=== PATIENT | female | born 1940 | race Caucasian/White ===

== ENCOUNTER 2018-10-08 22:52 | Inpatient (IN) | payer MEDICARE, OTHER | END 2018-10-10 13:10 | disposition home or self-care (01) | LOC: ER 22:52 → PCU 3S 10-09 02:04 | DX: I12.9 Hypertensive chronic kidney disease with stage 1 through stage 4 chronic kidney disease, or unspecified chronic kidney disease (principal); N17.9 Acute kidney failure, unspecified; N18.9 Chronic kidney disease, unspecified; E11.22 Type 2 diabetes mellitus with diabetic chronic kidney disease ==

== ENCOUNTER 2019-04-11 22:01 | Inpatient (IN) | payer MEDICARE ==
[~2019-04-11] VITALS: Ht 160 cm; Wt 88.2 kg
[~2019-04-11 22:01] MED LIST: ASPI-611 PO; ATORVASTATIN CALCIUM 40 MG TAB PO; GLIPIZIDE 5 MG PO; HYDROCODON APAP PO; INSU100I8 SQ; INSULIN GLARGINE 100 UNIT/ML SQ; METOPROLOL SUCCINATE 100 MG PO; PREDNISOLONE ACETATE OP
[2019-04-11] MEDS ORDERED: piperacillin/tazo 4.5gm/100ml 100 ML IV SCH (22:25)
[2019-04-11] MEDS ORDERED: piperacillin/tazo 4.5gm/100ml 100 ML IV ONE (22:33)
[2019-04-11] MEDS ORDERED: glucagon, human recombinant 1mg kit SUBCUT PRN (22:40)
[2019-04-11] MEDS ORDERED: mag hydrox/Alum hydrox/simeth 30ml oral suspension PO PRN (22:40)
[2019-04-11] MEDS ORDERED: potassium Cl 20 mEq SR tablet PO PRN ×2 (22:40)
[2019-04-11] MEDS ORDERED: potassium CL 10mEq/100ml bag 100 ML IV PRN ×2 (22:40)
[2019-04-11] MEDS ORDERED: ondansetron/PF 4mg/2ml inj IV PRN (22:40)
[2019-04-11] MEDS ORDERED: dextrose 50%-water 50ml dispensing syringe IV PRN ×2 (22:40)
[2019-04-11] MEDS ORDERED: magnesium 4gm in 100ml NS 100 ML IV PRN (22:40)
[2019-04-11] MEDS ORDERED: magnesium Cl slow-release 64mg tablet PO PRN (22:40)
[2019-04-11] MEDS ORDERED: dextrose ORAL solution 15 GM/59 ML bottle PO PRN ×2 (22:40)
[2019-04-11] MEDS ORDERED: normal saline 1000ml 1,000 ML IV ONE (22:40)
[2019-04-11] MEDS ORDERED: morphine 2 MG/ML inj. syringe IV PRN ×2 (22:40)
[2019-04-11] MEDS ORDERED: MESSAGE TO PHARMACY PO ONE (22:40)
[2019-04-11] MEDS ORDERED: acetaminophen 325mg tablet PO PRN ×2 (22:40)
[2019-04-11] MEDS ORDERED: magnesium 2GM in 50ml NS 50 ML IV PRN (22:40)
[2019-04-11 22:43] LABS: BASOPHILS # (AUTO) 0.1 X10'3 (0-0.2); BASOPHILS % (AUTO) 0.9 % (0-1); CLARITY,URINE CLEAR (Clear); COLOR,URINE YELLOW (Yellow); EOSINOPHILS # (AUTO) 0.2 X10'3 (0-0.9); EOSINOPHILS % (AUTO) 2.6 % (0-6); GLUCOSE, URINE 250 mg/dl (Neg); HEMATOCRIT 32.1 % (35.0-45.0); HEMOGLOBIN 10.4 g/dl (12.0-16.0); KETONES,URINE NEGATIVE (Neg); LEUKOCYTE ESTERASE ,URINE NEGATIVE (Neg); LYMPHOCYTES # (AUTO) 0.9 X10'3 (1.1-4.8); LYMPHOCYTES % (AUTO) 10.3 % (21-51); MEAN CORPUSCULAR HEMOGLOBIN 26.8 PG (27.0-31.0); MEAN CORPUSCULAR HGB CONC 32.4 g/dL (33.0-36.5); MEAN CORPUSCULAR VOLUME 82.7 FL (78-98); MEAN PLATELET VOLUME 8.1 FL (7.4-10.4); MONOCYTES % (AUTO) 12.1 % (2-12); NEUTROPHILS # (AUTO) 6.4 X10'3 (1.8-7.7); NEUTROPHILS % (AUTO) 74.1 % (42-75); NITRITES, URINE NEGATIVE (Neg); OCCULT BLOOD,URINE TRACE-INTACT (Neg); PH,URINE 5.5 (4.8-8.0); PLATELET COUNT 256 X10'3 (140-440); PROTEIN,URINE 100 mg/dl (Neg); RED BLOOD COUNT 3.89 X10'6 (4.20-5.60); UROBILINOGEN,URINE 0.2 E.U/dL (0.2-1.0); WHITE BLOOD COUNT 8.6 X10'3 (4.5-11.0)
[2019-04-11 22:50] LABS: BACTERIA,URINE FEW /HPF (Neg); RBC,URINE 0-2 /HPF (0-2); SQUAMOUS EPITHELIAL CELL,UR FEW /LPF (FEW); UA COLLECTION TYPE CLN CATCH MIDSTREAM
[2019-04-11 22:54] LABS: ALANINE AMINOTRANSFERASE 34 U/L (12-78); ALBUMIN 2.5 G/DL (3.4-5.0); ALBUMIN/GLOBULIN RATIO 0.5 (1.1-1.5); ALKALINE PHOSPHATASE 88 IU/L (46-116); ANION GAP 10 (8-16); ASPARTATE AMINO TRANSFERASE 29 U/L (10-37); BILIRUBIN,TOTAL 0.3 MG/DL (0.1-1.0); BLOOD UREA NITROGEN 37 MG/DL (7-18); BUN/CREATININE RATIO 25.2 (6.6-38.0); CHLORIDE 104 MMOL/L (99-107); CREATININE 1.47 MG/DL (0.40-0.90); GLUCOSE 370 MG/DL (70-104); POTASSIUM 4.6 MMOL/L (3.5-5.1); SODIUM 137 MMOL/L (135-145); TOTAL CARBON DIOXIDE 23.1 MMOL/L (24-32); TOTAL PROTEIN 7.1 G/DL (6.4-8.2); eGFR 34 ML/MIN
[2019-04-11] MEDS ORDERED: VANCOmycin 1250MG/NS 250ml Bag 250 ML IV ONE (23:00)
--- NOTE | 2019-04-11 23:15 | NUR ---
Report rec'd from rio Peterson. pt is (+) for MRSA and pseudomonas in her wound. Pt BG 353, will tx on the floor when meds available.
[2019-04-11 23:47] VITALS: BP 168/64
[2019-04-11] MEDS: normal saline 1000ml 1,000 ML IV SCH (23:50)
[2019-04-12] MEDS ORDERED: NYSPWD TP (00:43)
[2019-04-12] MEDS ORDERED: GLIP5TAB13 PO ×4 (00:43→07:43)
[2019-04-12] MEDS ORDERED: INSU100V9 SQ ×2 (00:43)
[2019-04-12] MEDS ORDERED: DOCU-148 (00:43)
[2019-04-12] MEDS ORDERED: AMLO5TAB4 PO (00:43)
[2019-04-12] MEDS ORDERED: LEVO25TA2 PO (00:43)
[2019-04-12] MEDS ORDERED: DORZ10DR18 EACHEYE (00:43)
[2019-04-12] MEDS: normal saline 1000ml 1,000 ML IV SCH ×3 (00:49→23:25)
[2019-04-12] MEDS: insulin Lispro (HumaLOG) vial - multi-dose SQ SCH ×4 (02:17→19:13)
[2019-04-12] MEDS: magnesium hydroxide 30ml (MOM) UD suspension PO PRN ×2 (02:36→20:38)
[2019-04-12] MEDS: HYDROcodone/acetaminophen 5mg/325mg tablet PO PRN ×2 (02:37→10:45)
[2019-04-12 05:27] LABS: EOSINOPHILS # (AUTO) 0.3 X10'3 (0-0.9); MONOCYTES # (AUTO) 1.1 X10'3 (0-0.9)
[2019-04-12 05:30] LABS: BASOPHILS # (AUTO) 0.1 X10'3 (0-0.2); BASOPHILS % (AUTO) 0.9 % (0-1); EOSINOPHILS % (AUTO) 3.5 % (0-6); HEMATOCRIT 27.6 % (35.0-45.0); LYMPHOCYTES # (AUTO) 0.7 X10'3 (1.1-4.8); LYMPHOCYTES % (AUTO) 9.4 % (21-51); MEAN CORPUSCULAR HEMOGLOBIN 27.1 PG (27.0-31.0); MEAN CORPUSCULAR HGB CONC 32.7 g/dL (33.0-36.5); MEAN CORPUSCULAR VOLUME 82.9 FL (78-98); MEAN PLATELET VOLUME 8.8 FL (7.4-10.4); NEUTROPHILS # (AUTO) 5.7 X10'3 (1.8-7.7); NEUTROPHILS % (AUTO) 72.2 % (42-75); PLATELET COUNT 220 X10'3 (140-440); RED BLOOD COUNT 3.33 X10'6 (4.20-5.60); RED CELL DISTRIBUTION WIDTH 17.1 % (11.5-14.5)
[2019-04-12 05:35] LABS: ALBUMIN 2.2 G/DL (3.4-5.0); ANION GAP 9 (8-16); BLOOD UREA NITROGEN 39 MG/DL (7-18); BUN/CREATININE RATIO 24.7 (6.6-38.0); CALCIUM 8.8 MG/DL (8.5-10.1); CHLORIDE 106 MMOL/L (99-107); CREATININE 1.58 MG/DL (0.40-0.90); GLUCOSE 294 MG/DL (70-104); MAGNESIUM 1.8 MG/DL (1.5-2.4); POTASSIUM 4.4 MMOL/L (3.5-5.1); SODIUM 139 MMOL/L (135-145); TOTAL CARBON DIOXIDE 24.4 MMOL/L (24-32); eGFR 32 ML/MIN
[2019-04-12 06:00] VITALS: BP 172/64
[2019-04-12] MEDS ORDERED: piperacillin/tazo 3.375gm/50ml 50 ML IV SCH (06:00)
--- NOTE | 2019-04-12 06:21 | NUR ---
Report given to rio Arroyo.
[2019-04-12] MEDS ORDERED: ATOR40TA72 PO (06:39)
[2019-04-12] MEDS ORDERED: HYDR-3972 PO (06:39)
[2019-04-12] MEDS ORDERED: TIMO5DRO4 EACHEYE (06:43)
--- NOTE | 2019-04-12 06:48 | NUR ---
Patient in room ORTHO 4007. I have received report from Roseline WHITAKER and had the opportunity to ask questions and assume patient care.
[2019-04-12] MEDS: K and/or MAG REPLACEMENT MC SCH (07:05)
[2019-04-12] MEDS: cefepime 1GM/NS ADD-VANTAGE 100 ML IV SCH ×2 (07:51→20:32)
[2019-04-12] MEDS: heparin, porcine 5000 units/ml vial SQ SCH ×2 (07:56→20:33)
[2019-04-12] MEDS ORDERED: METO-395 PO (08:23)
[2019-04-12 10:00] VITALS: BP 163/75
[2019-04-12] MEDS ORDERED: gadopentetate dimeglumine 7.5 MMOL/15 ML syringe ONE (10:33)
[2019-04-12] MEDS ORDERED: gadopentetate dimeglumine 5 mmol/10ml vial IV ONE (10:33)
--- NOTE | 2019-04-12 12:02 | NUR ---
DM Consult: A1C 9.9. Pt admit w/ R foot osteomyelitis w/ RLE +3 edema present. Pt seen by RD for written/verbal high protein and DM eds w/ RD contact information provided. 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 PO 75% avg meals; pt agrees to chocolate ensure high protein TIDWM; pending MD verification prior to sending w/ meals which pt is aware of. Receiving MoM PRN pending first DM this admit. Will continue to monitor. Rec: 1. continue carb controlled diet 2. chocolate ensure high protein TIDWM; pending MD verification prior to sending on meals 3. wt per rx Addendum: 04/12/19 at [address] Amended: Links added.
--- NOTE | 2019-04-12 14:36 | NUR ---
Paged hospitalist [phone] please review home meds, patient very concerned about not getting home meds, will continue to monitor
[2019-04-12] MEDS ORDERED: HYDROcodone/acetaminophen 10/325mg tab PO PRN (14:50)
[2019-04-12] MEDS: amLODIPine 5mg tablet PO SCH (15:07)
[2019-04-12 15:08] VITALS: BP 199/68
[2019-04-12] MEDS: VANCOmycin 1250MG/NS 250ml Bag 250 ML IV SCH (17:30)
[2019-04-12 18:00] VITALS: BP 122/64
[2019-04-12] MEDS: lactose-reduced food (Ensure High Protein) 237ml bottle PO SCH (18:00)
--- NOTE | 2019-04-12 18:35 | NUR ---
Problems reprioritized. Patient report given, questions answered & plan of care reviewed with Roseline WHITAKER.
--- NOTE | 2019-04-12 18:36 | NUR ---
Report rec'd from rio Segura. Addendum: 04/12/19 at 1839 by Roseline Valentine RN Disregard last note: Report rec'd from rio Segura. Report rec'd from rio Arroyo.
[2019-04-12] MEDS: HYDROcodone/acetaminophen 10/325mg tab PO PRN (19:11)
[2019-04-12] MEDS: atorvastatin 20mg tablet PO SCH (20:33)
[2019-04-12] MEDS: timolol 0.5% ophthalmic solution 5ml bottle EACHEYE SCH (20:33)
[2019-04-12] MEDS: lactobacillus rhamnosus 10,000 MMU CELLS/CAPSULE PO SCH (20:33)
[2019-04-12] MEDS: nystatin 15 GM powder TP SCH (20:38)
[2019-04-12] MEDS: insulin glargine (Lantus) pen - multi-dose SQ SCH (21:10)
[2019-04-12 22:00] VITALS: BP 178/86
[2019-04-12] MEDS: metroNIDAZOLE-Flagyl 500mg/NS 100 ML IV SCH (23:25)
[2019-04-12] MEDS: diphenhydrAMINE 25mg capsule PO PRN (23:29)
--- NOTE | 2019-04-12 23:53 | NUR ---
pt feeling "low" BG. accucheck BG 40, gave 30gm Glucose shot. recheck 15 mins. BG 110. will continue to monitor.
[2019-04-13] MEDS: HYDROcodone/acetaminophen 5mg/325mg tablet PO PRN (04:51)
[2019-04-13 06:00] VITALS: BP 178/68
--- NOTE | 2019-04-13 06:05 | NUR ---
Report given to rio Mendoza.
[2019-04-13 06:13] LABS: BASOPHILS # (AUTO) 0.1 X10'3 (0-0.2); HEMOGLOBIN 8.9 g/dl (12.0-16.0); NEUTROPHILS # (AUTO) 6.3 X10'3 (1.8-7.7)
[2019-04-13 06:14] LABS: ALBUMIN 2.2 G/DL (3.4-5.0); ANION GAP 9 (8-16); BASOPHILS % (AUTO) 0.9 % (0-1); BLOOD UREA NITROGEN 32 MG/DL (7-18); BUN/CREATININE RATIO 24.2 (6.6-38.0); CALCIUM 8.7 MG/DL (8.5-10.1); CHLORIDE 108 MMOL/L (99-107); CREATININE 1.32 MG/DL (0.40-0.90); EOSINOPHILS # (AUTO) 0.3 X10'3 (0-0.9); EOSINOPHILS % (AUTO) 3.6 % (0-6); GLUCOSE 122 MG/DL (70-104); HEMATOCRIT 27.9 % (35.0-45.0); LYMPHOCYTES % (AUTO) 11.5 % (21-51); MAGNESIUM 1.8 MG/DL (1.5-2.4); MEAN CORPUSCULAR HEMOGLOBIN 26.3 PG (27.0-31.0); MEAN CORPUSCULAR HGB CONC 31.8 g/dL (33.0-36.5); MEAN CORPUSCULAR VOLUME 82.8 FL (78-98); MONOCYTES % (AUTO) 11.6 % (2-12); NEUTROPHILS % (AUTO) 72.4 % (42-75); PLATELET COUNT 228 X10'3 (140-440); POTASSIUM 4.7 MMOL/L (3.5-5.1); RED BLOOD COUNT 3.38 X10'6 (4.20-5.60); RED CELL DISTRIBUTION WIDTH 17.1 % (11.5-14.5); SODIUM 138 MMOL/L (135-145); TOTAL CARBON DIOXIDE 20.8 MMOL/L (24-32); WHITE BLOOD COUNT 8.7 X10'3 (4.5-11.0); eGFR 39 ML/MIN
[2019-04-13 07:33] LABS: PLATELET ESTIMATE NORMAL
[2019-04-13 07:34] LABS: ANISOCYTOSIS 1+
[2019-04-13] MEDS: metoprolol succinate 25mg (24-HOUR) SR. Tablet PO SCH (07:48)
[2019-04-13] MEDS: lactobacillus rhamnosus 10,000 MMU CELLS/CAPSULE PO SCH ×2 (07:48→21:01)
[2019-04-13] MEDS: amLODIPine 5mg tablet PO SCH (07:48)
[2019-04-13] MEDS: levoTHYROXINE 25mcg tablet PO SCH (07:48)
[2019-04-13] MEDS: aspirin 81mg tablet.DR PO SCH (07:48)
[2019-04-13] MEDS: nystatin 15 GM powder TP SCH ×3 (07:49→21:28)
[2019-04-13] MEDS: heparin, porcine 5000 units/ml vial SQ SCH ×2 (07:49→21:02)
[2019-04-13] MEDS: timolol 0.5% ophthalmic solution 5ml bottle EACHEYE SCH ×2 (07:52→21:01)
[2019-04-13] MEDS: cefepime 1GM/NS ADD-VANTAGE 100 ML IV SCH ×2 (07:59→21:01)
[2019-04-13] MEDS: K and/or MAG REPLACEMENT MC SCH (08:00)
[2019-04-13] MEDS: metroNIDAZOLE-Flagyl 500mg/NS 100 ML IV SCH ×3 (09:21→23:13)
[2019-04-13] MEDS: insulin Lispro (HumaLOG) vial - multi-dose SQ SCH ×3 (09:25→19:46)
[2019-04-13 10:00] VITALS: BP 122/74
[2019-04-13] MEDS: normal saline 1000ml 1,000 ML IV SCH ×2 (11:53→16:49)
[2019-04-13] MEDS: HYDROcodone/acetaminophen 10/325mg tab PO PRN ×3 (12:02→23:12)
[2019-04-13] MEDS: lactose-reduced food (Ensure High Protein) 237ml bottle PO SCH ×2 (13:00→18:00)
[2019-04-13] MEDS: VANCOmycin 1250MG/NS 250ml Bag 250 ML IV SCH (17:26)
[2019-04-13 18:00] VITALS: BP 130/78
--- NOTE | 2019-04-13 18:20 | NUR ---
Problems reprioritized. Patient report given, questions answered & plan of care reviewed with Roseline WHITAKER.
--- NOTE | 2019-04-13 19:12 | NUR ---
Patient in room ORTHO 4007. I have received report from Townshend and had the opportunity to ask questions and assume patient care.
--- NOTE | 2019-04-13 19:13 | NUR ---
REPORT REC'D FROM SHERMAN HADLEY.
[2019-04-13] MEDS: docusate sod 100mg capsule PO SCH (21:01)
[2019-04-13] MEDS: atorvastatin 20mg tablet PO SCH (21:01)
[2019-04-13] MEDS: insulin glargine (Lantus) pen - multi-dose SQ SCH (21:26)
[2019-04-13 22:00] VITALS: BP 162/72
[2019-04-13] MEDS: ALPRAZolam 0.25mg tablet PO PRN (23:12)
[2019-04-14] VITALS (16 sets, daily range): BP systolic 130–184; BP diastolic 59–93
[2019-04-14] MEDS: normal saline 1000ml 1,000 ML IV SCH (02:49)
[2019-04-14 06:05] LABS: HEMOGLOBIN 9.2 g/dl (12.0-16.0); LYMPHOCYTES # (AUTO) 1.1 X10'3 (1.1-4.8)
[2019-04-14 06:07] LABS: BASOPHILS % (AUTO) 0.5 % (0-1); EOSINOPHILS # (AUTO) 0.3 X10'3 (0-0.9); EOSINOPHILS % (AUTO) 2.9 % (0-6); HEMATOCRIT 28.4 % (35.0-45.0); LYMPHOCYTES % (AUTO) 12.3 % (21-51); MEAN CORPUSCULAR HEMOGLOBIN 27.1 PG (27.0-31.0); MEAN CORPUSCULAR HGB CONC 32.4 g/dL (33.0-36.5); MEAN CORPUSCULAR VOLUME 83.5 FL (78-98); MEAN PLATELET VOLUME 8.7 FL (7.4-10.4); MONOCYTES # (AUTO) 1.2 X10'3 (0-0.9); MONOCYTES % (AUTO) 13.3 % (2-12); NEUTROPHILS # (AUTO) 6.4 X10'3 (1.8-7.7); PLATELET COUNT 274 X10'3 (140-440); RED CELL DISTRIBUTION WIDTH 16.9 % (11.5-14.5)
--- NOTE | 2019-04-14 06:10 | NUR ---
Patient in room ORTHO 4007. I have received report from Roseline WHITAKER and had the opportunity to ask questions and assume patient care.
[2019-04-14 06:20] LABS: ALBUMIN 2.4 G/DL (3.4-5.0); ANION GAP 10 (8-16); BLOOD UREA NITROGEN 29 MG/DL (7-18); BUN/CREATININE RATIO 20.4 (6.6-38.0); CALCIUM 9.6 MG/DL (8.5-10.1); CHLORIDE 108 MMOL/L (99-107); CREATININE 1.42 MG/DL (0.40-0.90); GLUCOSE 87 MG/DL (70-104); POTASSIUM 4.6 MMOL/L (3.5-5.1); SODIUM 140 MMOL/L (135-145); TOTAL CARBON DIOXIDE 22.3 MMOL/L (24-32); eGFR 36 ML/MIN
[2019-04-14] MEDS ORDERED: normal saline 1000ml 1,000 ML IV SCH (06:20)
--- NOTE | 2019-04-14 06:35 | NUR ---
Report given to rio Mendoza.
--- NOTE | 2019-04-14 06:45 | NUR ---
Patient in room ORTHO 4007. I have received report from SHERMAN Mendoza and had the opportunity to ask questions and assume patient care.
[2019-04-14 06:49] LABS: % IRON SATURATION 7 % (11-46); IRON 16 UG/DL (49-151); TOTAL IRON BINDING CAPACITY 215 UG/DL (259-388)
[2019-04-14 07:41] LABS: TOTAL CELLS COUNTED 100
[2019-04-14 07:42] LABS: ANISOCYTOSIS 1+; PLATELET ESTIMATE NORMAL
[2019-04-14 07:43] LABS: GIANT PLATELET FEW; TOXIC VACUOLATION 2+
[2019-04-14] MEDS: lactose-reduced food (Ensure High Protein) 237ml bottle PO SCH ×3 (08:00→20:00)
[2019-04-14] MEDS: K and/or MAG REPLACEMENT MC SCH (08:00)
[2019-04-14] MEDS: aspirin 81mg tablet.DR PO SCH (08:00)
[2019-04-14] MEDS: nystatin 15 GM powder TP SCH ×3 (08:00→21:00)
[2019-04-14] MEDS: heparin, porcine 5000 units/ml vial SQ SCH ×2 (08:00→20:00)
[2019-04-14] MEDS: lactobacillus rhamnosus 10,000 MMU CELLS/CAPSULE PO SCH ×2 (08:29→21:22)
[2019-04-14] MEDS: ALPRAZolam 0.25mg tablet PO PRN ×2 (08:30→22:53)
[2019-04-14] MEDS: amLODIPine 5mg tablet PO SCH ×2 (08:30→21:22)
[2019-04-14] MEDS: levoTHYROXINE 25mcg tablet PO SCH (08:30)
[2019-04-14] MEDS: docusate sod 100mg capsule PO SCH ×2 (08:30→21:22)
[2019-04-14] MEDS: metoprolol succinate 25mg (24-HOUR) SR. Tablet PO SCH (08:30)
[2019-04-14] MEDS: timolol 0.5% ophthalmic solution 5ml bottle EACHEYE SCH ×2 (08:33→20:14)
[2019-04-14] MEDS: cefepime 1GM/NS ADD-VANTAGE 100 ML IV SCH ×2 (08:33→20:14)
[2019-04-14] MEDS: metroNIDAZOLE-Flagyl 500mg/NS 100 ML IV SCH ×2 (09:50→15:56)
[2019-04-14] MEDS: potassium CL 20mEq in D5-1/2NS 1,000 ML IV SCH (10:08)
--- NOTE | 2019-04-14 11:50 | NUR ---
Student documentation: I have reviewed all interventions, assessments performed and documented by Emily Mckeon. Student Medication Administration: For this medication-pass time frame, all medication were reviewed, dispensed, administered and documented per hospital policy by Emily Mckeon.
[2019-04-14] MEDS ORDERED: VANCOMYCIN LEVEL IV ONE (16:30)
[2019-04-14] MEDS ORDERED: ringers solution, lacted 1,000 ML IV SCH (16:58)
[2019-04-14] MEDS ORDERED: ceFAZolin 1000mg inj ONE (16:59)
[2019-04-14] MEDS ORDERED: BUPIVAcaine/PF 2.5 mg/ml (0.25%) 30ml vial ONE (16:59)
[2019-04-14] MEDS ORDERED: proCHLORperazine 10 MG/2 ml inj IV PRN (17:00)
[2019-04-14] MEDS ORDERED: morphine 4 MG/ML inj SYRINge IV PRN ×2 (17:00)
[2019-04-14] MEDS ORDERED: ondansetron/PF 4mg/2ml inj IV PRN (17:00)
[2019-04-14] MEDS ORDERED: meperidine/PF 25mg/ml syringe IV PRN ×3 (17:00)
[2019-04-14] MEDS ORDERED: fentaNYL/PF 50MCG/1 ML 2ML syringe ONE (17:02)
[2019-04-14] MEDS ORDERED: propofol inj 20 ML IV ONE (17:02)
[2019-04-14] MEDS ORDERED: sevoflurane 250ml liquid IH ONE (17:04)
[2019-04-14] MEDS: ferrous sulfate 325mg tablet PO SCH (17:30)
[2019-04-14] MEDS: ascorbic acid 500mg tablet PO SCH (17:30)
--- NOTE | 2019-04-14 18:00 | NUR ---
Received from OR via BED , accompanied by Anesthesiologist DR CROW and report given by Anesthesiolgist. PATIENT WAKING UP, DENIES PAIN, V/S WNL, NEUROVASCULAR CHECKS INTACT, 20G PIV TO RUE, SCD ON, WV DRESSING TO RIGHT FOOT AT 125 CONTINOUS SUCTION CDI WITH SPONGE COMPRESSED.
--- NOTE | 2019-04-14 18:12 | NUR ---
Problems reprioritized. Patient report given, questions answered & plan of care reviewed with Mimi.
--- NOTE | 2019-04-14 19:00 | NUR ---
PATIENT A&OX4, DENIES PAIN, V/S WNL, NEUROVASCULAR CHECKS INTACT, 20G PIV TO RUE, SCD ON, WV DRESSING TO RIGHT FOOT LEAKING AND SPONGE SOFTENED, TROUBLE SHOOTING WV AND REPLACED DRESSING DO TO CLOTS ANS NOW IT IS AT 125 CONTINOUS SUCTION WITH SPONGE COMPRESS, HOWEVER WV DOES HAVE SOME VERY MINIMAL LEAKAGE ON EDGE BY TOE AND HEEL THAT IS MINIMAL AND WV DOES NOT SHOW LEAK WHEN TRUCK DOCK MATERIAL MOVER USED. PATIENT TAKEN TO 4007 WITH ALL BELONGIGNS AND HOOKED UP TO MONITORS IN ROOM AND REPORT GIVEN TO WILFREDO WHO HAS TAKEN OVER PATIENT CARE.Problems reprioritized. Patient report given, questions answered & plan of care reviewed with WILFREDO .
[2019-04-14] MEDS ORDERED: VANCOmycin 1250MG/NS 250ml Bag 250 ML IV SCH (21:00)
[2019-04-14] MEDS: atorvastatin 20mg tablet PO SCH (21:23)
[2019-04-14] MEDS: HYDROcodone/acetaminophen 10/325mg tab PO PRN (21:40)
[2019-04-14] MEDS: insulin glargine (Lantus) pen - multi-dose SQ SCH (22:28)
[2019-04-14] MEDS: insulin Lispro (HumaLOG) vial - multi-dose SQ SCH (22:30)
--- NOTE | 2019-04-14 23:30 | NUR ---
PT C/O NEED TO VOID, ABLE TO VOID 200 CC ON THE BEDPAN, BLADDER SCANNED FOR 696CC, PT STRAIGHT CATHED FOR 550CC Addendum: 04/15/19 at 0703 by Miim Nickerson RN Amended: Links added.
[2019-04-15] MEDS: metroNIDAZOLE-Flagyl 500mg/NS 100 ML IV SCH ×2 (00:57→08:13)
[2019-04-15 02:00] VITALS: BP 115/62
[2019-04-15] MEDS: HYDROcodone/acetaminophen 10/325mg tab PO PRN ×4 (02:12→21:04)
[2019-04-15] MEDS: potassium CL 20mEq in D5-1/2NS 1,000 ML IV SCH (02:12)
[2019-04-15 04:02] VITALS: BP 115/62
[2019-04-15 06:09] LABS: BASOPHILS # (AUTO) 0.1 X10'3 (0-0.2); BASOPHILS % (AUTO) 0.7 % (0-1); EOSINOPHILS # (AUTO) 0.2 X10'3 (0-0.9); EOSINOPHILS % (AUTO) 2.8 % (0-6); HEMATOCRIT 26.1 % (35.0-45.0); HEMOGLOBIN 8.3 g/dl (12.0-16.0); MEAN CORPUSCULAR HEMOGLOBIN 26.6 PG (27.0-31.0); MEAN CORPUSCULAR HGB CONC 31.8 g/dL (33.0-36.5); MEAN CORPUSCULAR VOLUME 83.4 FL (78-98); MEAN PLATELET VOLUME 9.4 FL (7.4-10.4); MONOCYTES # (AUTO) 0.9 X10'3 (0-0.9); MONOCYTES % (AUTO) 11.4 % (2-12); NEUTROPHILS # (AUTO) 5.8 X10'3 (1.8-7.7); NEUTROPHILS % (AUTO) 73.1 % (42-75); PLATELET COUNT 203 X10'3 (140-440); RED BLOOD COUNT 3.13 X10'6 (4.20-5.60); RED CELL DISTRIBUTION WIDTH 17.4 % (11.5-14.5)
[2019-04-15 06:14] VITALS: BP 146/23
[2019-04-15 06:14] LABS: ALBUMIN 2.1 G/DL (3.4-5.0); ANION GAP 10 (8-16); BLOOD UREA NITROGEN 31 MG/DL (7-18); CALCIUM 8.5 MG/DL (8.5-10.1); CHLORIDE 106 MMOL/L (99-107); CREATININE 1.41 MG/DL (0.40-0.90); GLUCOSE 328 MG/DL (70-104); MAGNESIUM 1.7 MG/DL (1.5-2.4); POTASSIUM 4.8 MMOL/L (3.5-5.1); SODIUM 136 MMOL/L (135-145); TOTAL CARBON DIOXIDE 19.6 MMOL/L (24-32); eGFR 36 ML/MIN
[2019-04-15] MEDS: K and/or MAG REPLACEMENT MC SCH (07:29)
[2019-04-15] MEDS: cefepime 1GM/NS ADD-VANTAGE 100 ML IV SCH ×2 (07:41→20:25)
[2019-04-15] MEDS: normal saline 1000ml 1,000 ML IV SCH ×2 (07:52→09:29)
[2019-04-15] MEDS: lactobacillus rhamnosus 10,000 MMU CELLS/CAPSULE PO SCH ×2 (07:54→20:57)
[2019-04-15] MEDS: aspirin 81mg tablet.DR PO SCH (07:54)
[2019-04-15] MEDS: timolol 0.5% ophthalmic solution 5ml bottle EACHEYE SCH ×2 (07:55→20:54)
[2019-04-15] MEDS: docusate sod 100mg capsule PO SCH ×2 (07:55→20:57)
[2019-04-15] MEDS: levoTHYROXINE 25mcg tablet PO SCH (07:55)
[2019-04-15] MEDS: heparin, porcine 5000 units/ml vial SQ SCH ×2 (07:56→20:28)
[2019-04-15] MEDS: nystatin 500,000 unit/5ML UD oral suspension PO SCH ×3 (08:00→20:28)
[2019-04-15] MEDS: fluconazole 100mg tablet PO SCH (08:00)
[2019-04-15] MEDS: lactose-reduced food (Ensure High Protein) 237ml bottle PO SCH ×3 (08:00→18:35)
[2019-04-15] MEDS: nystatin 15 GM powder TP SCH ×3 (08:00→21:00)
[2019-04-15] MEDS: metoprolol succinate 25mg (24-HOUR) SR. Tablet PO SCH (08:04)
[2019-04-15] MEDS: amLODIPine 5mg tablet PO SCH ×2 (08:04→20:59)
[2019-04-15] MEDS: insulin Lispro (HumaLOG) vial - multi-dose SQ SCH ×3 (09:24→18:38)
[2019-04-15] MEDS: ferrous sulfate 325mg tablet PO SCH ×2 (09:27→17:30)
[2019-04-15] MEDS: ascorbic acid 500mg tablet PO SCH ×2 (09:27→17:30)
[2019-04-15 14:00] VITALS: BP 166/52
[2019-04-15] MEDS: magnesium hydroxide 30ml (MOM) UD suspension PO PRN (15:23)
[2019-04-15] MEDS: metroNIDAZOLE 500mg tablet PO SCH (15:23)
[2019-04-15] MEDS ORDERED: VANCOMYCIN LEVEL IV ONE (16:30)
[2019-04-15 18:00] VITALS: BP 177/54
--- NOTE | 2019-04-15 18:00 | NUR ---
Patient in room ORTHO 4007. I have received report from SHERMAN Middleton and had the opportunity to ask questions and assume patient care.
[2019-04-15] MEDS: ALPRAZolam 0.25mg tablet PO PRN (19:23)
[2019-04-15] MEDS: hydrALAZINE 20mg/ml inj. IV PRN (19:23)
[2019-04-15] MEDS: diphenhydrAMINE 25mg capsule PO PRN (20:58)
[2019-04-15] MEDS: atorvastatin 20mg tablet PO SCH (20:59)
[2019-04-15] MEDS: insulin glargine (Lantus) pen - multi-dose SQ SCH (21:09)
[2019-04-15 22:00] VITALS: BP 170/58
[2019-04-15] MEDS ORDERED: VANCOmycin 1250MG/NS 250ml Bag 250 ML IV SCH (22:00)
[2019-04-16] MEDS: metroNIDAZOLE 500mg tablet PO SCH ×3 (00:23→16:56)
[2019-04-16] MEDS: HYDROcodone/acetaminophen 10/325mg tab PO PRN ×3 (02:50→20:19)
[2019-04-16] MEDS: ipratropium/albuterol 3ml nebule NEB PRN ×3 (03:17→20:33)
[2019-04-16] MEDS: ALPRAZolam 0.25mg tablet PO PRN (04:26)
[2019-04-16] MEDS: hydrALAZINE 20mg/ml inj. IV PRN (04:27)
[2019-04-16 06:00] VITALS: BP 187/64
--- NOTE | 2019-04-16 06:21 | NUR ---
Problems reprioritized. Patient report given, questions answered & plan of care reviewed with SHERMAN Middleton.
[2019-04-16 06:55] LABS: ALBUMIN 2.1 G/DL (3.4-5.0); ANION GAP 11 (8-16); BLOOD UREA NITROGEN 39 MG/DL (7-18); BUN/CREATININE RATIO 27.1 (6.6-38.0); CALCIUM 9.2 MG/DL (8.5-10.1); CHLORIDE 107 MMOL/L (99-107); CREATININE 1.44 MG/DL (0.40-0.90); GLUCOSE 244 MG/DL (70-104); MAGNESIUM 1.9 MG/DL (1.5-2.4); POTASSIUM 4.8 MMOL/L (3.5-5.1); SODIUM 137 MMOL/L (135-145); TOTAL CARBON DIOXIDE 19.1 MMOL/L (24-32); eGFR 35 ML/MIN
[2019-04-16 06:59] LABS: BASOPHILS % (AUTO) 0.4 % (0-1); EOSINOPHILS # (AUTO) 0.3 X10'3 (0-0.9); EOSINOPHILS % (AUTO) 3.1 % (0-6); HEMATOCRIT 27.8 % (35.0-45.0); HEMOGLOBIN 8.9 g/dl (12.0-16.0); LYMPHOCYTES # (AUTO) 1.1 X10'3 (1.1-4.8); LYMPHOCYTES % (AUTO) 10.9 % (21-51); MEAN CORPUSCULAR HEMOGLOBIN 26.5 PG (27.0-31.0); MEAN PLATELET VOLUME 8.9 FL (7.4-10.4); MONOCYTES # (AUTO) 1.1 X10'3 (0-0.9); MONOCYTES % (AUTO) 11.3 % (2-12); NEUTROPHILS # (AUTO) 7.3 X10'3 (1.8-7.7); NEUTROPHILS % (AUTO) 74.3 % (42-75); PLATELET COUNT 264 X10'3 (140-440); RED BLOOD COUNT 3.35 X10'6 (4.20-5.60); RED CELL DISTRIBUTION WIDTH 17.4 % (11.5-14.5); WHITE BLOOD COUNT 9.8 X10'3 (4.5-11.0)
--- NOTE | 2019-04-16 07:31 | NUR ---
PAGER ID: [phone] MESSAGE: Emi [phone] Kira Brock in 4256- could you please call me, she thinks she is having an allergic reaction to a med, her upper lip looks swollen to me no Benadryl ordered
[2019-04-16] MEDS: docusate sod 100mg capsule PO SCH ×2 (07:46→20:17)
[2019-04-16] MEDS: timolol 0.5% ophthalmic solution 5ml bottle EACHEYE SCH ×2 (07:46→20:19)
[2019-04-16] MEDS: nystatin 500,000 unit/5ML UD oral suspension PO SCH ×2 (07:47→07:53)
[2019-04-16] MEDS: aspirin 81mg tablet.DR PO SCH (07:47)
[2019-04-16] MEDS: fluconazole 100mg tablet PO SCH (07:47)
[2019-04-16] MEDS: lactobacillus rhamnosus 10,000 MMU CELLS/CAPSULE PO SCH ×2 (07:47→20:17)
[2019-04-16] MEDS: metoprolol succinate 25mg (24-HOUR) SR. Tablet PO SCH (07:48)
[2019-04-16] MEDS: amLODIPine 5mg tablet PO SCH ×2 (07:48→20:19)
[2019-04-16] MEDS: heparin, porcine 5000 units/ml vial SQ SCH ×2 (07:51→20:21)
[2019-04-16] MEDS: nystatin 15 GM powder TP SCH ×3 (07:51→20:23)
[2019-04-16] MEDS: diphenhydrAMINE 25mg capsule PO PRN ×2 (07:52→16:57)
[2019-04-16] MEDS: levoTHYROXINE 25mcg tablet PO SCH (07:52)
[2019-04-16] MEDS: lactose-reduced food (Ensure High Protein) 237ml bottle PO SCH ×3 (08:00→18:00)
[2019-04-16] MEDS: K and/or MAG REPLACEMENT MC SCH (08:00)
[2019-04-16 08:36] LABS: TOTAL CELLS COUNTED 100
[2019-04-16 08:37] LABS: ANISOCYTOSIS 1+; PLATELET ESTIMATE NORMAL; TOXIC VACUOLATION 3+
[2019-04-16 08:38] LABS: POLYCHROMASIA 1+
--- NOTE | 2019-04-16 08:46 | NUR ---
PAGER ID: [phone] MESSAGE: Emi [phone] re Kira Berry in 4006- I gave the Benadryl but she insists that the nystatin and antibiotics are causing a reaction so I held them until I hear from you. She does not appear to be in distress
[2019-04-16] MEDS ORDERED: methylPREDNISolone sod succ 125mg/2ml vial IV ONE (09:05)
[2019-04-16] MEDS ORDERED: famotidine 20MG/2.5ML oral suspension PO ONE (09:05)
[2019-04-16] MEDS ORDERED: famotidine/PF 10 mg/ml inj IV ONE (09:35)
--- NOTE | 2019-04-16 09:54 | NUR ---
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 Pt continues on CHO controlled diet meeting nutrient needs with documented 75-100% PO intake. Pt also receiving Ensure High Protein with improving PO intake, previously 50% now 100%. Pt with iron deficiency anemia per MD notes, receiving routine iron and vitamin C supplementation. LBM 04/13, pt recently started on routine Colace and with MoM PRN last given 04/15. Will continue to follow. Rec: 1. continue carb controlled diet 2. chocolate ensure high protein TIDWM 3. routine bowel care 4. wt per rx Addendum: 04/16/19 at [address] Amended: Links added.
[2019-04-16 10:00] VITALS: BP 160/74
[2019-04-16] MEDS: insulin Lispro (HumaLOG) vial - multi-dose SQ SCH ×4 (10:13→22:28)
[2019-04-16] MEDS: ascorbic acid 500mg tablet PO SCH ×2 (10:19→16:56)
[2019-04-16] MEDS: ferrous sulfate 325mg tablet PO SCH (10:19)
--- NOTE | 2019-04-16 10:34 | NUR ---
PAGER ID: [phone] MESSAGE: Emi [phone] re Mrs Berry- did you want both IV and oral Pepcid? Both are ordered stat once one.
--- NOTE | 2019-04-16 14:54 | NUR ---
pt drank peach smoothie on tray but did not drink the ensure yet
[2019-04-16] MEDS: aztreonam inj. 1,000 MG in normal saline 100ml IV soln 100 ML IV SCH (16:56)
[2019-04-16 17:30] VITALS: BP 161/74
[2019-04-16] MEDS: enalaprilat dihydrate 2.5mg/2ml vial IV PRN (17:36)
[2019-04-16] MEDS: linezolid 600mg tablet PO SCH (20:17)
[2019-04-16] MEDS: atorvastatin 20mg tablet PO SCH (20:17)
[2019-04-16] MEDS: famotidine 20mg tablet PO SCH (20:17)
[2019-04-16] MEDS: methylPREDNISolone sod succ 125mg/2ml vial IV SCH (20:19)
[2019-04-16] MEDS: magnesium hydroxide 30ml (MOM) UD suspension PO PRN (20:40)
[2019-04-16 22:00] VITALS: BP 170/52
[2019-04-16] MEDS: insulin glargine (Lantus) pen - multi-dose SQ SCH (22:30)
[2019-04-17] MEDS: aztreonam inj. 1,000 MG in normal saline 100ml IV soln 100 ML IV SCH ×4 (01:28→23:14)
[2019-04-17] MEDS: metroNIDAZOLE 500mg tablet PO SCH ×4 (01:28→23:13)
[2019-04-17] MEDS: enalaprilat dihydrate 2.5mg/2ml vial IV PRN (05:50)
[2019-04-17 06:00] VITALS: BP 165/66
--- NOTE | 2019-04-17 06:32 | NUR ---
Problems reprioritized. Patient report given, questions answered & plan of care reviewed with SHERMAN Mendoza.
--- NOTE | 2019-04-17 06:36 | NUR ---
Patient in room ORTHO 4007. I have received report from Maryanne WHITAKER and had the opportunity to ask questions and assume patient care.
[2019-04-17] MEDS: magnesium hydroxide 30ml (MOM) UD suspension PO PRN (07:51)
[2019-04-17] MEDS: lactobacillus rhamnosus 10,000 MMU CELLS/CAPSULE PO SCH ×2 (07:52→20:17)
[2019-04-17] MEDS: aspirin 81mg tablet.DR PO SCH (07:52)
[2019-04-17] MEDS: timolol 0.5% ophthalmic solution 5ml bottle EACHEYE SCH ×2 (07:52→20:16)
[2019-04-17] MEDS: methylPREDNISolone sod succ 125mg/2ml vial IV SCH (07:52)
[2019-04-17] MEDS: famotidine 20mg tablet PO SCH ×2 (07:52→20:18)
[2019-04-17] MEDS: amLODIPine 5mg tablet PO SCH ×2 (07:53→20:18)
[2019-04-17] MEDS: levoTHYROXINE 25mcg tablet PO SCH (07:53)
[2019-04-17] MEDS: metoprolol succinate 25mg (24-HOUR) SR. Tablet PO SCH (07:53)
[2019-04-17] MEDS: docusate sod 100mg capsule PO SCH ×2 (07:53→20:17)
[2019-04-17] MEDS: fluconazole 100mg tablet PO SCH (07:54)
[2019-04-17] MEDS: linezolid 600mg tablet PO SCH ×2 (07:54→20:17)
[2019-04-17] MEDS: heparin, porcine 5000 units/ml vial SQ SCH ×2 (07:54→20:18)
[2019-04-17] MEDS: HYDROcodone/acetaminophen 10/325mg tab PO PRN ×2 (07:56→16:47)
[2019-04-17] MEDS: lactose-reduced food (Ensure High Protein) 237ml bottle PO SCH ×3 (08:00→18:00)
[2019-04-17] MEDS: K and/or MAG REPLACEMENT MC SCH (08:00)
[2019-04-17] MEDS: nystatin 15 GM powder TP SCH ×4 (08:07→21:00)
[2019-04-17] MEDS: normal saline 1000ml 1,000 ML IV SCH ×2 (08:08→23:17)
[2019-04-17 09:04] VITALS: BP 156/63
[2019-04-17 09:08] LABS: BASOPHILS % (AUTO) 0.3 % (0-1); EOSINOPHILS % (AUTO) 0.1 % (0-6); HEMATOCRIT 29.4 % (35.0-45.0); HEMOGLOBIN 9.4 g/dl (12.0-16.0); LYMPHOCYTES # (AUTO) 0.9 X10'3 (1.1-4.8); LYMPHOCYTES % (AUTO) 6.1 % (21-51); MEAN CORPUSCULAR HEMOGLOBIN 26.7 PG (27.0-31.0); MEAN CORPUSCULAR VOLUME 83.6 FL (78-98); MEAN PLATELET VOLUME 8.4 FL (7.4-10.4); MONOCYTES % (AUTO) 6.7 % (2-12); NEUTROPHILS # (AUTO) 12.3 X10'3 (1.8-7.7); NEUTROPHILS % (AUTO) 86.8 % (42-75); PLATELET COUNT 350 X10'3 (140-440); RED BLOOD COUNT 3.52 X10'6 (4.20-5.60); RED CELL DISTRIBUTION WIDTH 17.8 % (11.5-14.5); WHITE BLOOD COUNT 14.1 X10'3 (4.5-11.0)
[2019-04-17] MEDS: insulin Lispro (HumaLOG) vial - multi-dose SQ SCH ×4 (09:20→21:32)
[2019-04-17] MEDS: ascorbic acid 500mg tablet PO SCH ×2 (09:24→17:17)
[2019-04-17 09:27] LABS: ALANINE AMINOTRANSFERASE 21 U/L (12-78); ALBUMIN 2.3 G/DL (3.4-5.0); ALBUMIN/GLOBULIN RATIO 0.5 (1.1-1.5); ALKALINE PHOSPHATASE 81 IU/L (46-116); ANION GAP 13 (8-16); ASPARTATE AMINO TRANSFERASE 8 U/L (10-37); BILIRUBIN,TOTAL 0.3 MG/DL (0.1-1.0); BLOOD UREA NITROGEN 47 MG/DL (7-18); BUN/CREATININE RATIO 33.6 (6.6-38.0); CALCIUM 9.5 MG/DL (8.5-10.1); CHLORIDE 104 MMOL/L (99-107); GLUCOSE 311 MG/DL (70-104); POTASSIUM 5.2 MMOL/L (3.5-5.1); SODIUM 137 MMOL/L (135-145); TOTAL PROTEIN 7.1 G/DL (6.4-8.2); eGFR 36 ML/MIN
--- NOTE | 2019-04-17 12:58 | NUR ---
Pt receiving Zyvox seen at bedside with SO present provided with low tyramine nutrition therapy education and RD contact information. Pt requesting yogurt QD at breakfast and rotating flavors of Ensure High Protein at each meal, d/w dietary. Pt currently eating well with 100% PO intake of ONS and 75-100% PO intake of meals. Will continue to follow. Addendum: 04/17/19 at [address] Amended: Links added.
[2019-04-17] MEDS ORDERED: bisacodyl 5mg tablet.DR PO PRN (14:45)
[2019-04-17] MEDS ORDERED: bisacodyl 10mg suppository rectal RC PRN (14:45)
[2019-04-17 17:00] VITALS: BP 164/70
[2019-04-17] MEDS: ferrous sulfate 325mg tablet PO SCH (17:17)
--- NOTE | 2019-04-17 18:23 | NUR ---
Problems reprioritized. Patient report given, questions answered & plan of care reviewed with Nava WHITAKER.
--- NOTE | 2019-04-17 18:45 | NUR ---
Patient in room ORTHO 4007. I have received report from SHERMAN Mendoza and had the opportunity to ask questions and assume patient care.
[2019-04-17] MEDS: atorvastatin 20mg tablet PO SCH (20:18)
[2019-04-17] MEDS ORDERED: VANCOMYCIN LEVEL IV ONE (21:30)
[2019-04-17] MEDS: insulin glargine (Lantus) pen - multi-dose SQ SCH (21:31)
[2019-04-17 22:00] VITALS: BP 166/70
[2019-04-17] MEDS: diphenhydrAMINE 25mg capsule PO PRN (23:14)
[2019-04-18] MEDS: HYDROcodone/acetaminophen 10/325mg tab PO PRN ×4 (01:00→22:07)
[2019-04-18 06:00] VITALS: BP 164/84
--- NOTE | 2019-04-18 06:29 | NUR ---
Problems reprioritized. Patient report given, questions answered & plan of care reviewed with SHERMAN Lyons.
[2019-04-18 06:30] LABS: BASOPHILS # (AUTO) 0.1 X10'3 (0-0.2); BASOPHILS % (AUTO) 0.7 % (0-1); EOSINOPHILS # (AUTO) 0.1 X10'3 (0-0.9); EOSINOPHILS % (AUTO) 0.7 % (0-6); HEMATOCRIT 29.1 % (35.0-45.0); HEMOGLOBIN 9.1 g/dl (12.0-16.0); LYMPHOCYTES # (AUTO) 2.2 X10'3 (1.1-4.8); LYMPHOCYTES % (AUTO) 14.6 % (21-51); MEAN CORPUSCULAR HGB CONC 31.3 g/dL (33.0-36.5); MEAN CORPUSCULAR VOLUME 83.1 FL (78-98); MEAN PLATELET VOLUME 8.8 FL (7.4-10.4); MONOCYTES # (AUTO) 1.7 X10'3 (0-0.9); MONOCYTES % (AUTO) 11.4 % (2-12); NEUTROPHILS % (AUTO) 72.6 % (42-75); PLATELET COUNT 346 X10'3 (140-440); RED BLOOD COUNT 3.51 X10'6 (4.20-5.60); RED CELL DISTRIBUTION WIDTH 17.8 % (11.5-14.5); WHITE BLOOD COUNT 15.2 X10'3 (4.5-11.0)
[2019-04-18 06:55] LABS: ALANINE AMINOTRANSFERASE 18 U/L (12-78); ALBUMIN 2.2 G/DL (3.4-5.0); ALBUMIN/GLOBULIN RATIO 0.5 (1.1-1.5); ALKALINE PHOSPHATASE 71 IU/L (46-116); ANION GAP 11 (8-16); ASPARTATE AMINO TRANSFERASE 11 U/L (10-37); BILIRUBIN,TOTAL 0.2 MG/DL (0.1-1.0); BLOOD UREA NITROGEN 59 MG/DL (7-18); BUN/CREATININE RATIO 37.3 (6.6-38.0); CALCIUM 9.2 MG/DL (8.5-10.1); CHLORIDE 107 MMOL/L (99-107); CREATININE 1.58 MG/DL (0.40-0.90); GLUCOSE 82 MG/DL (70-104); MAGNESIUM 2.3 MG/DL (1.5-2.4); POTASSIUM 4.6 MMOL/L (3.5-5.1); SODIUM 139 MMOL/L (135-145); TOTAL CARBON DIOXIDE 20.9 MMOL/L (24-32); TOTAL PROTEIN 6.7 G/DL (6.4-8.2); eGFR 32 ML/MIN
--- NOTE | 2019-04-18 07:05 | NUR ---
bg 62. 15Ml DEX 4 ADMINISTERED ORALLY. MILD DIAPHORESIS. WILL FOLLOW UP IN 15 MINUTES.
[2019-04-18] MEDS: aztreonam inj. 1,000 MG in normal saline 100ml IV soln 100 ML IV SCH ×2 (07:40→16:44)
[2019-04-18] MEDS: lactose-reduced food (Ensure High Protein) 237ml bottle PO SCH ×3 (08:00→20:00)
[2019-04-18] MEDS: K and/or MAG REPLACEMENT MC SCH (08:00)
[2019-04-18] MEDS: timolol 0.5% ophthalmic solution 5ml bottle EACHEYE SCH ×2 (08:00→19:12)
[2019-04-18] MEDS: normal saline 1000ml 1,000 ML IV SCH ×2 (08:20→18:20)
[2019-04-18] MEDS: aspirin 81mg tablet.DR PO SCH (09:00)
[2019-04-18] MEDS: amLODIPine 5mg tablet PO SCH ×2 (09:00→19:12)
[2019-04-18] MEDS: famotidine 20mg tablet PO SCH ×2 (09:00→19:12)
[2019-04-18] MEDS: ascorbic acid 500mg tablet PO SCH ×2 (09:00→16:42)
[2019-04-18] MEDS: metroNIDAZOLE 500mg tablet PO SCH ×2 (09:00→16:42)
[2019-04-18] MEDS: linezolid 600mg tablet PO SCH ×2 (09:00→19:12)
[2019-04-18] MEDS: ferrous sulfate 325mg tablet PO SCH ×2 (09:00→16:42)
[2019-04-18] MEDS: nystatin 15 GM powder TP SCH ×3 (09:01→20:45)
[2019-04-18] MEDS: docusate sod 100mg capsule PO SCH ×2 (09:01→19:12)
[2019-04-18] MEDS: levoTHYROXINE 25mcg tablet PO SCH (09:01)
[2019-04-18] MEDS: fluconazole 100mg tablet PO SCH (09:01)
[2019-04-18] MEDS: lactobacillus rhamnosus 10,000 MMU CELLS/CAPSULE PO SCH ×2 (09:01→19:12)
[2019-04-18] MEDS: heparin, porcine 5000 units/ml vial SQ SCH ×2 (09:02→19:12)
[2019-04-18] MEDS: metoprolol succinate 25mg (24-HOUR) SR. Tablet PO SCH (09:04)
[2019-04-18] MEDS: insulin Lispro (HumaLOG) vial - multi-dose SQ SCH ×3 (09:36→20:51)
[2019-04-18 10:00] VITALS: BP 155/85
[2019-04-18 18:00] VITALS: BP_SYST 145; BP_SYST 155; BP_DIAS 56; BP_DIAS 86
--- NOTE | 2019-04-18 18:20 | NUR ---
Received report from Serena WHITAKER. assumed care of patient.
--- NOTE | 2019-04-18 18:29 | NUR ---
Problems reprioritized. Patient report given, questions answered & plan of care reviewed with SHERMAN Kenney.
[2019-04-18] MEDS: atorvastatin 20mg tablet PO SCH (20:45)
[2019-04-18] MEDS: insulin glargine (Lantus) pen - multi-dose SQ SCH (20:54)
[2019-04-18 21:47] VITALS: BP 160/65
[2019-04-18] MEDS: diphenhydrAMINE 25mg capsule PO PRN (22:10)
[2019-04-19] VITALS (16 sets, daily range): BP systolic 142–194; BP diastolic 56–82
[2019-04-19] MEDS: aztreonam inj. 1,000 MG in normal saline 100ml IV soln 100 ML IV SCH ×4 (00:08→23:47)
[2019-04-19] MEDS: metroNIDAZOLE 500mg tablet PO SCH ×4 (00:08→23:47)
[2019-04-19] MEDS: ALPRAZolam 0.25mg tablet PO PRN (00:12)
[2019-04-19] MEDS: normal saline 1000ml 1,000 ML IV SCH ×2 (04:20→06:25)
[2019-04-19] MEDS: HYDROcodone/acetaminophen 10/325mg tab PO PRN ×4 (04:40→22:33)
--- NOTE | 2019-04-19 06:15 | NUR ---
Patient in room ORTHO 4007. I have received report from SHERMAN Lyman and had the opportunity to ask questions and assume patient care.
[2019-04-19 06:16] LABS: BASOPHILS # (AUTO) 0.2 X10'3 (0-0.2); BASOPHILS % (AUTO) 1.4 % (0-1); EOSINOPHILS # (AUTO) 0.3 X10'3 (0-0.9); EOSINOPHILS % (AUTO) 2.3 % (0-6); HEMATOCRIT 31.8 % (35.0-45.0); LYMPHOCYTES % (AUTO) 15.5 % (21-51); MEAN CORPUSCULAR HEMOGLOBIN 26.2 PG (27.0-31.0); MEAN CORPUSCULAR HGB CONC 31.3 g/dL (33.0-36.5); MEAN CORPUSCULAR VOLUME 83.7 FL (78-98); MEAN PLATELET VOLUME 8.6 FL (7.4-10.4); MONOCYTES # (AUTO) 1.6 X10'3 (0-0.9); MONOCYTES % (AUTO) 12.5 % (2-12); NEUTROPHILS # (AUTO) 8.7 X10'3 (1.8-7.7); NEUTROPHILS % (AUTO) 68.3 % (42-75); PLATELET COUNT 381 X10'3 (140-440); RED CELL DISTRIBUTION WIDTH 17.9 % (11.5-14.5); WHITE BLOOD COUNT 12.7 X10'3 (4.5-11.0)
[2019-04-19 06:27] LABS: ALANINE AMINOTRANSFERASE 19 U/L (12-78); ALBUMIN 2.4 G/DL (3.4-5.0); ALBUMIN/GLOBULIN RATIO 0.5 (1.1-1.5); ALKALINE PHOSPHATASE 76 IU/L (46-116); ANION GAP 11 (8-16); ASPARTATE AMINO TRANSFERASE 15 U/L (10-37); BILIRUBIN,TOTAL 0.2 MG/DL (0.1-1.0); BLOOD UREA NITROGEN 57 MG/DL (7-18); BUN/CREATININE RATIO 36.1 (6.6-38.0); CALCIUM 9.1 MG/DL (8.5-10.1); CHLORIDE 104 MMOL/L (99-107); CREATININE 1.58 MG/DL (0.40-0.90); GLUCOSE 239 MG/DL (70-104); POTASSIUM 5.1 MMOL/L (3.5-5.1); SODIUM 137 MMOL/L (135-145); TOTAL CARBON DIOXIDE 21.9 MMOL/L (24-32); TOTAL PROTEIN 7.1 G/DL (6.4-8.2); eGFR 32 ML/MIN
--- NOTE | 2019-04-19 06:29 | NUR ---
Gave report to Teresa WHITAKER.
[2019-04-19] MEDS: linezolid 600mg tablet PO SCH ×2 (08:00→20:36)
[2019-04-19] MEDS: nystatin 15 GM powder TP SCH ×3 (08:00→20:37)
[2019-04-19] MEDS: amLODIPine 5mg tablet PO SCH ×2 (08:00→20:36)
[2019-04-19] MEDS: aspirin 81mg tablet.DR PO SCH (08:00)
[2019-04-19] MEDS: lactose-reduced food (Ensure High Protein) 237ml bottle PO SCH ×3 (08:00→17:03)
[2019-04-19] MEDS: levoTHYROXINE 25mcg tablet PO SCH (08:00)
[2019-04-19] MEDS: heparin, porcine 5000 units/ml vial SQ SCH ×2 (08:00→20:37)
[2019-04-19] MEDS: fluconazole 100mg tablet PO SCH (08:00)
[2019-04-19] MEDS: K and/or MAG REPLACEMENT MC SCH (08:00)
[2019-04-19] MEDS: docusate sod 100mg capsule PO SCH ×2 (08:00→19:22)
[2019-04-19] MEDS: lactobacillus rhamnosus 10,000 MMU CELLS/CAPSULE PO SCH ×2 (08:00→20:36)
[2019-04-19] MEDS: famotidine 20mg tablet PO SCH ×2 (08:00→20:36)
[2019-04-19] MEDS: timolol 0.5% ophthalmic solution 5ml bottle EACHEYE SCH ×2 (08:16→20:36)
[2019-04-19] MEDS: insulin Lispro (HumaLOG) vial - multi-dose SQ SCH ×4 (08:20→20:50)
[2019-04-19] MEDS: ascorbic acid 500mg tablet PO SCH ×2 (08:30→18:44)
[2019-04-19] MEDS: ferrous sulfate 325mg tablet PO SCH ×2 (08:30→18:51)
[2019-04-19] MEDS: metoprolol succinate 25mg (24-HOUR) SR. Tablet PO SCH (08:51)
[2019-04-19 08:57] LABS: ANISOCYTOSIS 1+; PLATELET ESTIMATE NORMAL; TOTAL CELLS COUNTED 100; TOXIC GRANULATION 1+; TOXIC VACUOLATION 3+
[2019-04-19 08:58] LABS: POLYCHROMASIA 1+
[2019-04-19] MEDS ORDERED: bacitracin 15gm ointment TP ONE (09:23)
--- NOTE | 2019-04-19 09:30 | NUR ---
To OR per bed. Report called to PACU.
[2019-04-19] MEDS ORDERED: sevoflurane 250ml liquid IH ONE (10:11)
[2019-04-19] MEDS ORDERED: propofol inj 20 ML IV ONE (10:15)
[2019-04-19] MEDS ORDERED: fentaNYL/PF 50MCG/1 ML 2ML syringe ONE (10:15)
[2019-04-19] MEDS ORDERED: ePHEDrine 50MG/ML INJ. ONE (10:55)
[2019-04-19] MEDS ORDERED: ringers solution, lacted 1,000 ML IV SCH (11:08)
[2019-04-19] MEDS ORDERED: ondansetron/PF 4mg/2ml inj IV PRN (11:10)
[2019-04-19] MEDS ORDERED: meperidine/PF 25mg/ml syringe IV PRN ×3 (11:10)
[2019-04-19] MEDS ORDERED: proCHLORperazine 10 MG/2 ml inj IV PRN (11:10)
[2019-04-19] MEDS ORDERED: morphine 4 MG/ML inj SYRINge IV PRN ×2 (11:10)
--- NOTE | 2019-04-19 11:20 | NUR ---
Received from OR via , accompanied by Anesthesiologist DR CROW and report given by Anesthesiolgist. AWAKENS TO VOICE. VITALS STABLE. DRESSING DI. RODOLFO PAIN.
--- NOTE | 2019-04-19 12:00 | NUR ---
Patient brought back from OR, awake and alert, denies pain. Dressing to rt foot clean and dry. CSM intact.
--- NOTE | 2019-04-19 12:00 | NUR ---
Report called to receiving nurse. Transferred via BED Belongings . Special Issues communicated to receiving nurse. AWAKE AND ORIENTED. VITALS STABLE. DRESSING DI. RODOLFO PAIN. TO ORTHO RM 4005 AT THIS TIME.
--- NOTE | 2019-04-19 17:09 | NUR ---
Page to Dr. Saab - Mrs. Berry, RM # [id number] B. Currently has Flora Vista 10 mg ordered for pain, it is not relieving her post-op pain. Can we get an order for two Flora Vista or Dilaudid for breakthrough pain? Thank you, Teresa [facility]Ne[facility] EXT [phone]
[2019-04-19] MEDS ORDERED: HYDROcodone/acetaminophen 10/325mg tab PO ONE (17:15)
[2019-04-19] MEDS ORDERED: HYDROcodone/acetaminophen 10/325mg tab PO PRN (17:15)
--- NOTE | 2019-04-19 18:15 | NUR ---
Problems reprioritized. Patient report given, questions answered & plan of care reviewed with SHERMAN Church.
--- NOTE | 2019-04-19 19:46 | NUR ---
Patient in room ORTHO 4007. I have received report from SHERMAN Moore and had the opportunity to ask questions and assume patient care. Addendum: 04/19/19 at 1948 by Lynnette Olivera RN Amended: Links added.
[2019-04-19] MEDS: atorvastatin 20mg tablet PO SCH (20:35)
[2019-04-19] MEDS: insulin glargine (Lantus) pen - multi-dose SQ SCH (20:52)
[2019-04-19] MEDS: diphenhydrAMINE 25mg capsule PO PRN (22:33)
[2019-04-20] MEDS: HYDROcodone/acetaminophen 10/325mg tab PO PRN ×5 (05:02→22:20)
[2019-04-20 05:26] LABS: BASOPHILS # (AUTO) 0.1 X10'3 (0-0.2); BASOPHILS % (AUTO) 0.9 % (0-1); EOSINOPHILS # (AUTO) 0.3 X10'3 (0-0.9); EOSINOPHILS % (AUTO) 2.2 % (0-6); HEMATOCRIT 29.8 % (35.0-45.0); HEMOGLOBIN 9.6 g/dl (12.0-16.0); LYMPHOCYTES % (AUTO) 14.8 % (21-51); MEAN CORPUSCULAR HEMOGLOBIN 26.8 PG (27.0-31.0); MEAN CORPUSCULAR HGB CONC 32.1 g/dL (33.0-36.5); MEAN CORPUSCULAR VOLUME 83.5 FL (78-98); MEAN PLATELET VOLUME 8.1 FL (7.4-10.4); MONOCYTES # (AUTO) 1.6 X10'3 (0-0.9); MONOCYTES % (AUTO) 11.9 % (2-12); NEUTROPHILS # (AUTO) 9.4 X10'3 (1.8-7.7); NEUTROPHILS % (AUTO) 70.2 % (42-75); PLATELET COUNT 392 X10'3 (140-440); RED BLOOD COUNT 3.57 X10'6 (4.20-5.60); RED CELL DISTRIBUTION WIDTH 17.6 % (11.5-14.5); WHITE BLOOD COUNT 13.4 X10'3 (4.5-11.0)
[2019-04-20 05:46] LABS: ANION GAP 9 (8-16); CHLORIDE 105 MMOL/L (99-107); GLUCOSE 143 MG/DL (70-104); POTASSIUM 4.6 MMOL/L (3.5-5.1); SODIUM 137 MMOL/L (135-145); TOTAL CARBON DIOXIDE 22.7 MMOL/L (24-32)
[2019-04-20 05:47] LABS: ALANINE AMINOTRANSFERASE 17 U/L (12-78); ALBUMIN 2.2 G/DL (3.4-5.0); ALBUMIN/GLOBULIN RATIO 0.5 (1.1-1.5); ALKALINE PHOSPHATASE 65 IU/L (46-116); ASPARTATE AMINO TRANSFERASE 14 U/L (10-37); BILIRUBIN,TOTAL 0.2 MG/DL (0.1-1.0); BLOOD UREA NITROGEN 44 MG/DL (7-18); BUN/CREATININE RATIO 29.5 (6.6-38.0); CALCIUM 8.8 MG/DL (8.5-10.1); CREATININE 1.49 MG/DL (0.40-0.90); TOTAL PROTEIN 6.3 G/DL (6.4-8.2); eGFR 34 ML/MIN
[2019-04-20 06:00] VITALS: BP 156/72
--- NOTE | 2019-04-20 06:15 | NUR ---
Patient in room ORTHO 4007. I have received report from ELISSA WHITAKER and had the opportunity to ask questions and assume patient care.
--- NOTE | 2019-04-20 06:21 | NUR ---
Problems reprioritized. Patient report given, questions answered & plan of care reviewed with SHERMAN Moore. Addendum: 04/20/19 at 0621 by Lynnette Olivera RN Amended: Links added.
[2019-04-20 06:50] LABS: ANISOCYTOSIS 1+; PLATELET ESTIMATE NORMAL; TOTAL CELLS COUNTED 100; TOXIC VACUOLATION 3+
[2019-04-20 06:51] LABS: LARGE PLATELETS FEW
[2019-04-20] MEDS: K and/or MAG REPLACEMENT MC SCH (07:37)
[2019-04-20] MEDS: fluconazole 100mg tablet PO SCH (07:44)
[2019-04-20] MEDS: docusate sod 100mg capsule PO SCH ×2 (07:44→21:48)
[2019-04-20] MEDS: metroNIDAZOLE 500mg tablet PO SCH ×2 (07:44→16:33)
[2019-04-20] MEDS: aspirin 81mg tablet.DR PO SCH (07:44)
[2019-04-20] MEDS: lactobacillus rhamnosus 10,000 MMU CELLS/CAPSULE PO SCH ×2 (07:44→21:47)
[2019-04-20] MEDS: famotidine 20mg tablet PO SCH ×2 (07:44→20:00)
[2019-04-20] MEDS: amLODIPine 5mg tablet PO SCH ×2 (07:44→21:49)
[2019-04-20] MEDS: levoTHYROXINE 25mcg tablet PO SCH (07:44)
[2019-04-20] MEDS: ascorbic acid 500mg tablet PO SCH ×2 (07:45→17:51)
[2019-04-20] MEDS: linezolid 600mg tablet PO SCH ×2 (07:45→21:49)
[2019-04-20] MEDS: metoprolol succinate 25mg (24-HOUR) SR. Tablet PO SCH (07:45)
[2019-04-20] MEDS: ferrous sulfate 325mg tablet PO SCH ×2 (07:45→17:51)
[2019-04-20] MEDS: nystatin 15 GM powder TP SCH ×3 (07:45→21:59)
[2019-04-20] MEDS: heparin, porcine 5000 units/ml vial SQ SCH ×2 (07:45→21:48)
[2019-04-20] MEDS: lactose-reduced food (Ensure High Protein) 237ml bottle PO SCH ×3 (07:46→18:00)
[2019-04-20] MEDS: normal saline 1000ml 1,000 ML IV SCH (07:46)
[2019-04-20] MEDS: timolol 0.5% ophthalmic solution 5ml bottle EACHEYE SCH ×2 (07:46→21:47)
[2019-04-20] MEDS: aztreonam inj. 1,000 MG in normal saline 100ml IV soln 100 ML IV SCH ×2 (07:46→16:33)
[2019-04-20] MEDS: insulin Lispro (HumaLOG) vial - multi-dose SQ SCH ×3 (08:44→19:14)
[2019-04-20 10:00] VITALS: BP 157/50
--- NOTE | 2019-04-20 11:56 | NUR ---
Reassessment: Pt PO 50-75% avg meals w/ 100% ensure high protein TID meeting needs for wound healing. Pt requests change to glucerna TID as well as double proteins TID; dietary notified. [facility] 04/19. Will continue to monitor. Rec: 1. continue carb controlled diet; double proteins TID 2. glucerna TIDWM 3. routine bowel care 4. wt per rx Addendum: 04/20/19 at [address] Amended: Links added.
[2019-04-20 14:00] VITALS: BP 149/67
[2019-04-20] MEDS: hydrALAZINE 20mg/ml inj. IV PRN (17:51)
[2019-04-20 18:00] VITALS: BP 176/68
--- NOTE | 2019-04-20 18:00 | NUR ---
Problems reprioritized. Patient report given, questions answered & plan of care reviewed with JUAN CARLOS WHITAKER.
--- NOTE | 2019-04-20 18:00 | NUR ---
Patient in room ORTHO 4007. I have received report from SHERMAN Moore and had the opportunity to ask questions and assume patient care.
[2019-04-20] MEDS: atorvastatin 20mg tablet PO SCH (21:47)
[2019-04-20] MEDS: insulin glargine (Lantus) pen - multi-dose SQ SCH (21:53)
[2019-04-20 22:00] VITALS: BP 187/63
[2019-04-20] MEDS: diphenhydrAMINE 25mg capsule PO PRN (22:15)
[2019-04-21] VITALS (7 sets, daily range): BP systolic 163–190; BP diastolic 57–78
[2019-04-21] MEDS: ALPRAZolam 0.25mg tablet PO PRN ×2 (00:35→21:59)
[2019-04-21] MEDS: metroNIDAZOLE 500mg tablet PO SCH ×2 (00:35→08:57)
[2019-04-21] MEDS: aztreonam inj. 1,000 MG in normal saline 100ml IV soln 100 ML IV SCH ×2 (00:40→08:58)
[2019-04-21] MEDS: hydrALAZINE 20mg/ml inj. IV PRN (00:44)
--- NOTE | 2019-04-21 03:24 | NUR ---
Orienteer documentation: I have reviewed and agree with all interventions, assessments performed and documented by SHERMAN Sims. Orienteer Medication Administration: For this medication-pass time frame, all medication were reviewed, dispensed, administered and documented per hospital policy by SHERMAN Sims.
[2019-04-21] MEDS: HYDROcodone/acetaminophen 10/325mg tab PO PRN ×4 (04:40→21:59)
--- NOTE | 2019-04-21 06:00 | NUR ---
Patient in room ORTHO 4007. I have received report from JUAN CARLOS WHITAKER and had the opportunity to ask questions and assume patient care.
[2019-04-21 06:10] LABS: BASOPHILS # (AUTO) 0.2 X10'3 (0-0.2); BASOPHILS % (AUTO) 1.2 % (0-1); EOSINOPHILS # (AUTO) 0.4 X10'3 (0-0.9); EOSINOPHILS % (AUTO) 2.7 % (0-6); HEMOGLOBIN 9.9 g/dl (12.0-16.0); LYMPHOCYTES # (AUTO) 1.8 X10'3 (1.1-4.8); LYMPHOCYTES % (AUTO) 13.3 % (21-51); MEAN CORPUSCULAR HEMOGLOBIN 26.6 PG (27.0-31.0); MEAN CORPUSCULAR HGB CONC 32.1 g/dL (33.0-36.5); MEAN CORPUSCULAR VOLUME 82.9 FL (78-98); MEAN PLATELET VOLUME 8.2 FL (7.4-10.4); MONOCYTES # (AUTO) 1.6 X10'3 (0-0.9); MONOCYTES % (AUTO) 12.2 % (2-12); NEUTROPHILS # (AUTO) 9.5 X10'3 (1.8-7.7); NEUTROPHILS % (AUTO) 70.6 % (42-75); PLATELET COUNT 426 X10'3 (140-440); RED BLOOD COUNT 3.73 X10'6 (4.20-5.60); WHITE BLOOD COUNT 13.5 X10'3 (4.5-11.0)
--- NOTE | 2019-04-21 06:20 | NUR ---
This patient had episodes of hypertension during this shift. She also had pain levels of 8/10 at the same moments. My orienteer and I gave appropriately ordered pain medication and Hydralizine if the BP did not decrease after receiving the pain medication. Patient's SBP at approx 0440 was at 190. Pain level was 8. Patient was given Mystic 10-325mg and then vitals rechecked at 0540 and SBP decreased to 163. This information was charted and passed on to the oncoming staff.
[2019-04-21 06:25] LABS: ALANINE AMINOTRANSFERASE 16 U/L (12-78); ALBUMIN 2.3 G/DL (3.4-5.0); ALBUMIN/GLOBULIN RATIO 0.6 (1.1-1.5); ALKALINE PHOSPHATASE 71 IU/L (46-116); ANION GAP 9 (8-16); ASPARTATE AMINO TRANSFERASE 15 U/L (10-37); BILIRUBIN,TOTAL 0.3 MG/DL (0.1-1.0); BLOOD UREA NITROGEN 39 MG/DL (7-18); BUN/CREATININE RATIO 28.7 (6.6-38.0); CALCIUM 9.1 MG/DL (8.5-10.1); CHLORIDE 106 MMOL/L (99-107); CREATININE 1.36 MG/DL (0.40-0.90); GLUCOSE 166 MG/DL (70-104); POTASSIUM 4.7 MMOL/L (3.5-5.1); SODIUM 138 MMOL/L (135-145); TOTAL CARBON DIOXIDE 23.5 MMOL/L (24-32); TOTAL PROTEIN 6.4 G/DL (6.4-8.2); eGFR 38 ML/MIN
--- NOTE | 2019-04-21 06:25 | NUR ---
Problems reprioritized. Patient report given, questions answered & plan of care reviewed with SHERMAN Moore.
[2019-04-21] MEDS: famotidine 20mg tablet PO SCH ×2 (08:00→20:00)
[2019-04-21] MEDS: K and/or MAG REPLACEMENT MC SCH (08:00)
--- NOTE | 2019-04-21 08:07 | NUR ---
Emptied patient's Doss Catheter-2,200 mL. Urine Clear/light yellow Addendum: 04/21/19 at 0808 by Yoshi COVARRUBIAS Amended: Links added.
[2019-04-21] MEDS: timolol 0.5% ophthalmic solution 5ml bottle EACHEYE SCH ×2 (08:17→20:50)
[2019-04-21] MEDS: lactose-reduced food (Ensure High Protein) 237ml bottle PO SCH ×3 (08:18→21:15)
[2019-04-21] MEDS: insulin Lispro (HumaLOG) vial - multi-dose SQ SCH ×3 (08:44→19:15)
[2019-04-21] MEDS ORDERED: lisinopril 5mg tablet PO ONE (08:55)
[2019-04-21] MEDS: docusate sod 100mg capsule PO SCH ×2 (08:57→19:30)
[2019-04-21] MEDS: aspirin 81mg tablet.DR PO SCH (08:57)
[2019-04-21] MEDS: levoTHYROXINE 25mcg tablet PO SCH (08:57)
[2019-04-21] MEDS: lactobacillus rhamnosus 10,000 MMU CELLS/CAPSULE PO SCH ×2 (08:57→20:49)
[2019-04-21] MEDS: amLODIPine 5mg tablet PO SCH ×2 (08:57→20:49)
[2019-04-21] MEDS: linezolid 600mg tablet PO SCH ×2 (08:57→20:48)
[2019-04-21] MEDS: ascorbic acid 500mg tablet PO SCH ×2 (08:58→17:28)
[2019-04-21] MEDS: metoprolol succinate 25mg (24-HOUR) SR. Tablet PO SCH (08:58)
[2019-04-21] MEDS: ferrous sulfate 325mg tablet PO SCH ×2 (08:58→17:28)
[2019-04-21] MEDS: nystatin 15 GM powder TP SCH ×4 (09:00→20:53)
[2019-04-21] MEDS: heparin, porcine 5000 units/ml vial SQ SCH ×2 (09:00→20:50)
[2019-04-21] MEDS: lisinopril 5mg tablet PO SCH ×2 (09:12→20:48)
--- NOTE | 2019-04-21 10:59 | NUR ---
Removal of leiva. 750 mL emptied. Addendum: 04/21/19 at 1100 by Yoshi COVARRUBIAS Amended: Links added.
--- NOTE | 2019-04-21 11:45 | NUR ---
Patient has some minor bruising on the base of the abdomen. Addendum: 04/21/19 at 1150 by Yoshi COVARRUBIAS Amended: Links added.
--- NOTE | 2019-04-21 11:58 | NUR ---
Student documentation: I have reviewed all interventions, assessments performed and documented by Cuco Mckeon . Student Medication Administration: For this medication-pass time frame, all medication were reviewed, dispensed, administered and documented per hospital policy by Cuco Mckeon.
--- NOTE | 2019-04-21 14:00 | NUR ---
PATIENT SITTING AT EDGE OF BED FOR LUNCH, LEG IN DEPENDENT POSITION. STARTED TO BLEED THROUGH THE DRESSING. WILL GET BACK IN BED, ELEVATE LEG AND REINFORCE DRESSING.
--- NOTE | 2019-04-21 18:00 | NUR ---
Problems reprioritized. Patient report given, questions answered & plan of care reviewed with NARINDER WHITAKER.
[2019-04-21] MEDS: atorvastatin 20mg tablet PO SCH (20:49)
[2019-04-21] MEDS: insulin glargine (Lantus) pen - multi-dose SQ SCH (21:03)
[2019-04-22 02:00] VITALS: BP 181/74
[2019-04-22] MEDS: hydrALAZINE 20mg/ml inj. IV PRN (02:59)
[2019-04-22] MEDS: HYDROcodone/acetaminophen 10/325mg tab PO PRN (05:37)
[2019-04-22] MEDS ORDERED: loperamide 2mg capsule PO ONE (05:50)
[2019-04-22 06:00] VITALS: BP 188/63
--- NOTE | 2019-04-22 06:24 | NUR ---
Problems reprioritized. Patient report given, questions answered & plan of care reviewed with SHERMAN Moore.
[2019-04-22] MEDS: linezolid 600mg tablet PO SCH (07:11)
[2019-04-22] MEDS: metoprolol succinate 25mg (24-HOUR) SR. Tablet PO SCH (07:11)
[2019-04-22] MEDS: levoTHYROXINE 25mcg tablet PO SCH (07:11)
[2019-04-22] MEDS: amLODIPine 5mg tablet PO SCH (07:11)
[2019-04-22] MEDS: lactobacillus rhamnosus 10,000 MMU CELLS/CAPSULE PO SCH (07:11)
[2019-04-22] MEDS: lisinopril 5mg tablet PO SCH (07:11)
[2019-04-22] MEDS: aspirin 81mg tablet.DR PO SCH (07:11)
[2019-04-22] MEDS: heparin, porcine 5000 units/ml vial SQ SCH (07:12)
[2019-04-22] MEDS: docusate sod 100mg capsule PO SCH (07:25)
[2019-04-22] MEDS: famotidine 20mg tablet PO SCH (07:26)
[2019-04-22] MEDS: ferrous sulfate 325mg tablet PO SCH (07:26)
[2019-04-22] MEDS: nystatin 15 GM powder TP SCH (07:26)
[2019-04-22] MEDS: ascorbic acid 500mg tablet PO SCH (07:26)
[2019-04-22] MEDS: timolol 0.5% ophthalmic solution 5ml bottle EACHEYE SCH (07:27)
[2019-04-22] MEDS: lactose-reduced food (Ensure High Protein) 237ml bottle PO SCH (07:28)
[2019-04-22] MEDS: K and/or MAG REPLACEMENT MC SCH (07:28)
[2019-04-22] MEDS ORDERED: HYDROcodone/acetaminophen 10/325mg tab PO ONE (07:40)
[2019-04-22] MEDS: insulin Lispro (HumaLOG) vial - multi-dose SQ SCH (08:18)
[2019-04-22] MEDS: ALPRAZolam 0.25mg tablet PO PRN (09:05)
--- NOTE | 2019-04-22 09:11 | NUR ---
Pt dc with [employer] with belongings and transfer papers.
== END 2019-04-22 09:10 | DRG 617 ==
LOC: ER 22:02 → ORTHO 4S 23:26 → CMPBEDREQ 04-12 19:33 → ORTHO 4S 04-20 11:40
PROVIDERS: ADMIT Hospitalist; ATTEND Internal Medicine
PROC: 0Y6M0Z9 Detachment at Right Foot, Partial 1st Ray, Open Approach (ICD-10-PCS; principal; 2019-04-14 17:04)
PROC: 0JBQ0ZZ Excision of Right Foot Subcutaneous Tissue and Fascia, Open Approach (ICD-10-PCS; 2019-04-19)
DX: E11.69 Type 2 diabetes mellitus with other specified complication (principal); M86.8X7 Other osteomyelitis, ankle and foot; B37.0 Candidal stomatitis; N17.9 Acute kidney failure, unspecified; I12.9 Hypertensive chronic kidney disease with stage 1 through stage 4 chronic kidney disease, or unspecified chronic kidney disease; E11.22 Type 2 diabetes mellitus with diabetic chronic kidney disease; N18.3 Chronic kidney disease, stage 3 (moderate); E11.621 Type 2 diabetes mellitus with foot ulcer; T36.8X5A Adverse effect of other systemic antibiotics, initial encounter; T78.3XXA Angioneurotic edema, initial encounter; B95.62 Methicillin resistant Staphylococcus aureus infection as the cause of diseases classified elsewhere; E66.9 Obesity, unspecified; Z96.653 Presence of artificial knee joint, bilateral; B35.6 Tinea cruris; R06.03 Acute respiratory distress; G89.29 Other chronic pain; M19.90 Unspecified osteoarthritis, unspecified site; M54.9 Dorsalgia, unspecified; D50.9 Iron deficiency anemia, unspecified; R19.7 Diarrhea, unspecified; E11.65 Type 2 diabetes mellitus with hyperglycemia; E78.5 Hyperlipidemia, unspecified; F41.9 Anxiety disorder, unspecified; K59.00 Constipation, unspecified; L97.519 Non-pressure chronic ulcer of other part of right foot with unspecified severity; Z83.3 Family history of diabetes mellitus; Z68.34 Body mass index [BMI] 34.0-34.9, adult; Z86.61 Personal history of infections of the central nervous system; Z79.899 Other long term (current) drug therapy; Z79.82 Long term (current) use of aspirin; Z79.4 Long term (current) use of insulin; Z98.49 Cataract extraction status, unspecified eye; R33.9 Retention of urine, unspecified; Y92.238 Other place in hospital as the place of occurrence of the external cause
CPT/HCPCS: 36415; 71045; 73630; 73720; 80048; 80053; 81001; 82948; 83036; 83540; 83550; 83735; 84443; 85025; 87081; 87088; 88305; 93005; 93926; 94640; 94760; 96365; 97110; 97112; 97162; 97530; 99285; A4215; A4618; A6222; A6449; A6550; A7000; A9579; G0378; J0360; J0690; J0692; J1644; J1815; J2175; J2270; J2405; J2543; J2704; J2930; J3010; J3370; J3480; J3490; J7030; J7120; Q0163

== ENCOUNTER 2021-05-16 12:16 | Inpatient (IN) | payer MEDICARE ==
[~2021-05-16] VITALS: Ht 157.5 cm; Wt 80.0 kg
[~2021-05-16 12:16] MED LIST changes: +AMLO5TAB4 PO; +ASCO100T12 PO; +ATOR40TA72 PO; -ATORVASTATIN CALCIUM 40 MG TAB PO; +BUME1TAB8 PO; +CLIN-143 PO; +DULO60CA65 PO; +GLIP5TAB13 PO; -GLIPIZIDE 5 MG PO; +HYDR-3972 PO; -HYDROCODON APAP PO; +INSU100V9 SQ; -INSULIN GLARGINE 100 UNIT/ML SQ; +LEVO25TA2 PO; +METO-395 PO; -METOPROLOL SUCCINATE 100 MG PO; +MULT-955 PO; -PREDNISOLONE ACETATE OP
[2021-05-16] MEDS ORDERED: VANCOMYCIN 1,500MG inj. 1,500 MG in normal saline 500ml IV soln 500 ML IV ONE (12:57)
[2021-05-16 13:00] LABS: BASOPHILS # (AUTO) 0.2 X10'3 (0-0.2); BASOPHILS % (AUTO) 0.9 % (0-1); EOSINOPHILS # (AUTO) 0.1 X10'3 (0-0.9); EOSINOPHILS % (AUTO) 0.8 % (0-6); HEMATOCRIT 29.8 % (35.0-45.0); HEMOGLOBIN 9.5 g/dl (12.0-16.0); LYMPHOCYTES # (AUTO) 1.3 X10'3 (1.1-4.8); LYMPHOCYTES % (AUTO) 7.1 % (21-51); MEAN CORPUSCULAR HEMOGLOBIN 27.3 PG (27.0-31.0); MEAN CORPUSCULAR VOLUME 85.2 FL (78-98); MEAN PLATELET VOLUME 8.5 FL (7.4-10.4); MONOCYTES # (AUTO) 2.1 X10'3 (0-0.9); MONOCYTES % (AUTO) 11.3 % (2-12); NEUTROPHILS # (AUTO) 14.9 X10'3 (1.8-7.7); NEUTROPHILS % (AUTO) 79.9 % (42-75); PLATELET COUNT 508 X10'3 (140-440); RED CELL DISTRIBUTION WIDTH 17.3 % (11.5-14.5); WHITE BLOOD COUNT 18.6 X10'3 (4.5-11.0)
[2021-05-16] MEDS ORDERED: piperacillin/tazo 4.5gm/100ml 100 ML IV ONE (13:10)
[2021-05-16 13:15] LABS: ALANINE AMINOTRANSFERASE 101 U/L (12-78); ALBUMIN 1.8 G/DL (3.4-5.0); ALBUMIN/GLOBULIN RATIO 0.3 (1.1-1.5); ALKALINE PHOSPHATASE 140 IU/L (46-116); ANION GAP 8 (8-16); ASPARTATE AMINO TRANSFERASE 136 U/L (10-37); BILIRUBIN,TOTAL 0.3 MG/DL (0.1-1.0); BLOOD UREA NITROGEN 45 MG/DL (7-18); BUN/CREATININE RATIO 17.4 (6.6-38.0); CALCIUM 10.6 MG/DL (8.5-10.1); CHLORIDE 102 MMOL/L (99-107); CREATININE 2.58 MG/DL (0.40-0.90); GLUCOSE 122 MG/DL (70-104); POTASSIUM 4.5 MMOL/L (3.5-5.1); SODIUM 133 MMOL/L (135-145); TOTAL CARBON DIOXIDE 23.5 MMOL/L (24-32); TOTAL PROTEIN 7.5 G/DL (6.4-8.2); eGFR 18 ML/MIN
[2021-05-16] MEDS ORDERED: AMLO10TA13 PO (13:43)
[2021-05-16] MEDS ORDERED: METO-384 PO (13:43)
[2021-05-16] MEDS ORDERED: HYDR-4069 PO (13:43)
[2021-05-16] MEDS ORDERED: SPIR25TA5 PO (13:43)
[2021-05-16] MEDS ORDERED: INSU100V9 SQ (13:48)
[2021-05-16 14:03] LABS: TOTAL CELLS COUNTED 100
[2021-05-16 14:04] LABS: LARGE PLATELETS FEW; PLATELET ESTIMATE INCREASED
[2021-05-16 14:04] LABS: CLARITY,URINE SLIGHTLY CLOUDY (Clear); COLOR,URINE YELLOW (Yellow); UA COLLECTION TYPE VOIDED
[2021-05-16 14:05] LABS: GLUCOSE, URINE 500 mg/dl (Neg); KETONES,URINE NEGATIVE (Neg); LEUKOCYTE ESTERASE ,URINE NEGATIVE (Neg); NITRITES, URINE NEGATIVE (Neg); OCCULT BLOOD,URINE TRACE-LYSED (Neg); PROTEIN,URINE 300 mg/dl (Neg); UROBILINOGEN,URINE 0.2 E.U/dL (0.2-1.0)
[2021-05-16 14:10] LABS: SQUAMOUS EPITHELIAL CELL,UR FEW /LPF (FEW)
[2021-05-16 14:11] LABS: BACTERIA,URINE 1+ /HPF (Neg); RBC,URINE 0-2 /HPF (0-2); TRANSITIONAL EPI CELLS,URINE MANY /HPF; WBC,URINE 0-4 /HPF (0-4)
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
[2021-05-16] MEDS ORDERED: normal saline 1000ml 1,000 ML IV SCH (14:40)
[2021-05-16] MEDS ORDERED: MESSAGE TO PHARMACY PO ONE (14:40)
[2021-05-16] MEDS ORDERED: magnesium hydroxide 30ml (MOM) UD suspension PO PRN (14:40)
[2021-05-16] MEDS ORDERED: mag hydrox/Alum hydrox/simeth 30ml oral suspension PO PRN (14:40)
[2021-05-16] MEDS ORDERED: ondansetron/PF 4mg/2ml inj IV PRN (14:40)
[2021-05-16] MEDS ORDERED: dextrose 50%-water 50ml dispensing syringe IV PRN ×2 (14:40)
[2021-05-16] MEDS ORDERED: dextrose ORAL solution 15 GM/59 ML bottle PO PRN (14:40)
[2021-05-16] MEDS ORDERED: HYDROcodone/acetaminophen 5mg/325mg tablet PO PRN (14:40)
[2021-05-16] MEDS ORDERED: glucagon, human recombinant 1mg kit SUBCUT PRN (14:40)
[2021-05-16] MEDS ORDERED: acetaminophen 325mg tablet PO PRN ×2 (14:40)
[2021-05-16] MEDS: HYDROcodone/acetaminophen 10/325mg tab PO PRN (15:06)
[2021-05-16] MEDS ORDERED: vancomycin/NS 1 GM ADD-VANTAGE 250 ML IV ONE (15:25)
[2021-05-16] MEDS: diphenhydrAMINE 50 mg/ml inj IV PRN (17:24)
[2021-05-16] MEDS: morphine 2 MG/ML inj. syringe IV PRN (17:25)
--- NOTE | 2021-05-16 17:33 | NUR ---
bgl 62, gave pt apple juice waiting for dinner tray
[2021-05-16] MEDS ORDERED: vancomycin/NS 1 GM ADD-VANTAGE 250 ML IV PRN (20:00)
[2021-05-16 20:10] VITALS: BP 148/55
[2021-05-16] MEDS: furosemide 20 MG/2 ML vial IV SCH (20:11)
[2021-05-16] MEDS: atorvastatin 20mg tablet PO SCH (20:12)
[2021-05-16] MEDS: docusate sod 100mg capsule PO SCH (20:12)
[2021-05-16] MEDS: ALPRAZolam 0.25mg tablet PO PRN (20:12)
[2021-05-16] MEDS: insulin glargine (Lantus) pen - multi-dose SQ SCH (21:00)
[2021-05-17] VITALS (9 sets, daily range): BP systolic 96–191; BP diastolic 45–65
[2021-05-17] MEDS: piperacillin/tazo 4.5gm/100ml 100 ML IV SCH ×3 (00:52→20:00)
[2021-05-17] MEDS: VANCOMYCIN LEVEL IV SCH (03:00)
[2021-05-17] MEDS: morphine 2 MG/ML inj. syringe IV PRN ×2 (03:45→22:47)
--- NOTE | 2021-05-17 04:21 | NUR ---
pt is being given a bed bath, CHG wipes and fresh linens to prep for surgery. Pre-Op PTT, type & screen, and EKG ordered. CXR was done in ER. pt has been NPO since midnight. consents are not signed but they are prepared and place in the hard chart. pt is DNR status so the "operative DNR clarification" for was added to the consents packet.
[2021-05-17] MEDS: ALPRAZolam 0.25mg tablet PO PRN (05:25)
[2021-05-17] MEDS: HYDROcodone/acetaminophen 10/325mg tab PO PRN ×2 (05:25→19:39)
--- NOTE | 2021-05-17 05:35 | NUR ---
pt asked for pain meds and keeps repeating "I'm dying, I'm dying, I'm dying" so nurse got her pain med and the PRN xanax. pt then accused the RN of "loading her up with medications to shut her up"... she took the meds anyways and then asked the nurse to ask the surgeon for a ELEVATOR INSTALLER APPRENTICE after surgery.
[2021-05-17 08:17] LABS: BASOPHILS # (AUTO) 0.2 X10'3 (0-0.2); BASOPHILS % (AUTO) 1.1 % (0-1); EOSINOPHILS # (AUTO) 0.4 X10'3 (0-0.9); EOSINOPHILS % (AUTO) 2.1 % (0-6); HEMATOCRIT 26.1 % (35.0-45.0); HEMOGLOBIN 8.2 g/dl (12.0-16.0); LYMPHOCYTES % (AUTO) 5.7 % (21-51); MEAN CORPUSCULAR HEMOGLOBIN 26.8 PG (27.0-31.0); MEAN CORPUSCULAR HGB CONC 31.4 g/dL (33.0-36.5); MEAN CORPUSCULAR VOLUME 85.5 FL (78-98); MEAN PLATELET VOLUME 8.6 FL (7.4-10.4); MONOCYTES % (AUTO) 11.9 % (2-12); NEUTROPHILS # (AUTO) 13.2 X10'3 (1.8-7.7); NEUTROPHILS % (AUTO) 79.2 % (42-75); PLATELET COUNT 466 X10'3 (140-440); RED BLOOD COUNT 3.05 X10'6 (4.20-5.60); RED CELL DISTRIBUTION WIDTH 17.1 % (11.5-14.5); WHITE BLOOD COUNT 16.7 X10'3 (4.5-11.0)
[2021-05-17] MEDS ORDERED: morphine 2 MG/ML inj. syringe IV PRN ×2 (08:20→14:05)
[2021-05-17 08:23] LABS: PARTIAL THROMBOPLASTIN TIME 40 SECONDS (22-32)
[2021-05-17 08:25] LABS: ALBUMIN 1.5 G/DL (3.4-5.0); ANION GAP 13 (8-16); BLOOD UREA NITROGEN 42 MG/DL (7-18); BUN/CREATININE RATIO 17.5 (6.6-38.0); CALCIUM 9.4 MG/DL (8.5-10.1); CHLORIDE 104 MMOL/L (99-107); GLUCOSE 105 MG/DL (70-104); POTASSIUM 4.2 MMOL/L (3.5-5.1); SODIUM 139 MMOL/L (135-145); TOTAL CARBON DIOXIDE 21.6 MMOL/L (24-32); VANCOMYCIN,RANDOM 15.9 UG/ML; eGFR 19 ML/MIN
[2021-05-17] MEDS: levoTHYROXINE 25mcg tablet PO SCH (09:01)
[2021-05-17] MEDS: furosemide 20 MG/2 ML vial IV SCH ×2 (09:01→19:40)
[2021-05-17] MEDS: amLODIPine 5mg tablet PO SCH (09:02)
[2021-05-17] MEDS: metoprolol succinate 25mg (24-HOUR) SR. Tablet PO SCH (09:02)
[2021-05-17] MEDS: docusate sod 100mg capsule PO SCH ×2 (09:03→20:00)
[2021-05-17] MEDS: aspirin 81mg, enteric-coated 1 TAB TABLET.DR PO SCH (09:03)
[2021-05-17] MEDS: multivitamins, therapeutics tablet PO SCH (09:03)
[2021-05-17] MEDS ORDERED: bacitracin 15gm ointment TP ONE (13:42)
[2021-05-17] MEDS ORDERED: ondansetron/PF 4mg/2ml inj IV PRN (14:05)
[2021-05-17] MEDS ORDERED: ringers solution, lacted 1,000 ML IV SCH (14:05)
[2021-05-17] MEDS ORDERED: proCHLORperazine 10 MG/2 ml inj IV PRN (14:05)
[2021-05-17] MEDS ORDERED: meperidine/PF 25mg/ml syringe IV PRN ×3 (14:05)
[2021-05-17] MEDS ORDERED: morphine 4 MG/ML inj SYRINge IV PRN (14:05)
[2021-05-17] MEDS ORDERED: LIDOcaine 1% (10mg/ml) 2ml vial ONE (14:27)
[2021-05-17] MEDS ORDERED: fentaNYL/PF 50MCG/1 ML 2ML syringe ONE (15:08)
[2021-05-17] MEDS ORDERED: MIDAZolam 1 MG/ML 5ML VIAL ONE (15:09)
[2021-05-17] MEDS ORDERED: ePHEDrine 50MG/ML INJ. ONE (16:00)
[2021-05-17] MEDS ORDERED: ROPIVAcaine 0.5% (5mg/ml) 30ml vial ONE (17:49)
[2021-05-17] MEDS ORDERED: dexamethasone sod phosphate 4mg/ml inj. ONE (17:49)
--- NOTE | 2021-05-17 18:15 | NUR ---
Received from OR via SURGICAL BED , accompanied by Anesthesiologist JESSICA and report given by Anesthesiolgist. PATIENT WITH STUMP SOCK TO RIGHT LE, HEMOVAC DRAIN PRESENT TO RIGHT LE. PATIENT WITH POSADAS CATHETER IN PLACE. CLEAR YELLOW URINE PRESENT IN ATRIUM. PATIENT WITH VSS AT THIS TIME. 20G PIV IN RIGHT UE RUNNING LR AT 50. Addendum: 05/17/21 at 1834 by Cornell Couch RN, RN Amended: Links added.
--- NOTE | 2021-05-17 19:05 | NUR ---
Report called to receiving nurse PCU. Transferred via PCU BED Belongings . Special Issues communicated to receiving nurse.PATIENT VSS AND TRANSFERED BACK TO HER ROOM. CALL LIGHT PRESENT AND BED LOW, PATIENT CALLING SPOUSE ON PERSONAL CELL PHONE. REPORT GIVEN TO RN. Addendum: 05/17/21 at 1910 by Cornell Couch RN, RN Amended: Links added.
[2021-05-17] MEDS: lactobacillus rhamnosus 10,000 MMU CELLS/CAPSULE PO SCH (19:38)
[2021-05-17] MEDS ORDERED: piperacillin/tazo 4.5gm/100ml 100 ML IV SCH (20:00)
--- NOTE | 2021-05-17 20:04 | NUR ---
Patient came back from recovery room for above the knee amputation, vital signs stable PRN medication administered as ordered will continue to monitor and report changes
[2021-05-17] MEDS: atorvastatin 20mg tablet PO SCH (20:17)
[2021-05-17] MEDS: insulin glargine (Lantus) pen - multi-dose SQ SCH (21:00)
[2021-05-18] MEDS: ALPRAZolam 0.25mg tablet PO PRN ×2 (01:00→22:05)
[2021-05-18 02:00] VITALS: BP 110/55
[2021-05-18] MEDS: VANCOMYCIN LEVEL IV SCH (03:00)
[2021-05-18] MEDS: HYDROcodone/acetaminophen 10/325mg tab PO PRN ×5 (03:57→21:58)
[2021-05-18] MEDS: morphine 2 MG/ML inj. syringe IV PRN (04:11)
[2021-05-18 06:00] VITALS: BP 104/50
[2021-05-18 06:06] LABS: BASOPHILS # (AUTO) 0.1 X10'3 (0-0.2); BASOPHILS % (AUTO) 0.7 % (0-1); EOSINOPHILS % (AUTO) 0.1 % (0-6); HEMATOCRIT 22.2 % (35.0-45.0); HEMOGLOBIN 7.1 g/dl (12.0-16.0); LYMPHOCYTES # (AUTO) 0.6 X10'3 (1.1-4.8); MEAN CORPUSCULAR HEMOGLOBIN 27.4 PG (27.0-31.0); MEAN CORPUSCULAR HGB CONC 31.9 g/dL (33.0-36.5); MEAN CORPUSCULAR VOLUME 85.8 FL (78-98); MEAN PLATELET VOLUME 8.4 FL (7.4-10.4); MONOCYTES % (AUTO) 6.8 % (2-12); NEUTROPHILS # (AUTO) 13.5 X10'3 (1.8-7.7); NEUTROPHILS % (AUTO) 88.4 % (42-75); PLATELET COUNT 410 X10'3 (140-440); RED BLOOD COUNT 2.59 X10'6 (4.20-5.60); RED CELL DISTRIBUTION WIDTH 17.7 % (11.5-14.5); WHITE BLOOD COUNT 15.3 X10'3 (4.5-11.0)
[2021-05-18 06:29] LABS: ALBUMIN 1.3 G/DL (3.4-5.0); ANION GAP 13 (8-16); BLOOD UREA NITROGEN 46 MG/DL (7-18); BUN/CREATININE RATIO 17.4 (6.6-38.0); CALCIUM 8.5 MG/DL (8.5-10.1); CHLORIDE 101 MMOL/L (99-107); CREATININE 2.64 MG/DL (0.40-0.90); GLUCOSE 432 MG/DL (70-104); POTASSIUM 4.6 MMOL/L (3.5-5.1); SODIUM 135 MMOL/L (135-145); TOTAL CARBON DIOXIDE 20.6 MMOL/L (24-32); VANCOMYCIN,RANDOM 10.5 UG/ML; eGFR 17 ML/MIN
--- NOTE | 2021-05-18 07:25 | NUR ---
Dr. ROSEN was paged about pt's BS result . patient name jaziel raygoza room 11 in PCU , morning blood sugar is 407. gabrielle WHITAKER [phone]
[2021-05-18] MEDS: docusate sod 100mg capsule PO SCH ×2 (08:15→21:58)
[2021-05-18] MEDS: aspirin 81mg, enteric-coated 1 TAB TABLET.DR PO SCH (08:15)
[2021-05-18] MEDS: furosemide 20 MG/2 ML vial IV SCH ×2 (08:15→21:57)
[2021-05-18] MEDS: metoprolol succinate 25mg (24-HOUR) SR. Tablet PO SCH (08:16)
[2021-05-18] MEDS: lactobacillus rhamnosus 10,000 MMU CELLS/CAPSULE PO SCH ×2 (08:16→22:00)
[2021-05-18] MEDS: levoTHYROXINE 25mcg tablet PO SCH (08:16)
[2021-05-18] MEDS: multivitamins, therapeutics tablet PO SCH (08:16)
[2021-05-18] MEDS: amLODIPine 5mg tablet PO SCH (08:18)
[2021-05-18] MEDS ORDERED: vancomycin/NS 1 GM ADD-VANTAGE 250 ML IV ONE (08:25)
[2021-05-18] MEDS: insulin Lispro (HumaLOG) vial - multi-dose SQ SCH ×3 (09:28→22:23)
[2021-05-18 11:00] VITALS: BP 95/44
[2021-05-18 15:00] VITALS: BP 94/34
--- NOTE | 2021-05-18 16:13 | NUR ---
Dr. ROSEN was notified about pt's high blood sugar level patient name PHIL JACOB in PCU room 11 blood sugar is 425, it has been elevated whole day and treated with insulin . HEMALATHA WHITAKER [phone]
[2021-05-18 18:00] VITALS: BP 113/47
--- NOTE | 2021-05-18 18:43 | NUR ---
RT PAGED FOR PATIENT. PATIENT STATES SHE NEEDS HER BREATHING TREATMENT.
[2021-05-18] MEDS: atorvastatin 20mg tablet PO SCH (21:59)
[2021-05-18 22:00] VITALS: BP 146/72
[2021-05-18] MEDS: insulin glargine (Lantus) pen - multi-dose SQ SCH (22:25)
[2021-05-19 02:00] VITALS: BP 142/61
[2021-05-19] MEDS: VANCOMYCIN LEVEL IV SCH (03:00)
[2021-05-19 05:15] LABS: BASOPHILS # (AUTO) 0.1 X10'3 (0-0.2); BASOPHILS % (AUTO) 0.9 % (0-1); EOSINOPHILS # (AUTO) 0.3 X10'3 (0-0.9); EOSINOPHILS % (AUTO) 2.1 % (0-6); HEMATOCRIT 25.6 % (35.0-45.0); HEMOGLOBIN 8.1 g/dl (12.0-16.0); LYMPHOCYTES # (AUTO) 0.8 X10'3 (1.1-4.8); LYMPHOCYTES % (AUTO) 6.1 % (21-51); MEAN CORPUSCULAR HEMOGLOBIN 27.1 PG (27.0-31.0); MEAN CORPUSCULAR HGB CONC 31.7 g/dL (33.0-36.5); MEAN CORPUSCULAR VOLUME 85.5 FL (78-98); MEAN PLATELET VOLUME 8.3 FL (7.4-10.4); MONOCYTES # (AUTO) 1.3 X10'3 (0-0.9); MONOCYTES % (AUTO) 9.7 % (2-12); NEUTROPHILS # (AUTO) 11.2 X10'3 (1.8-7.7); NEUTROPHILS % (AUTO) 81.2 % (42-75); PLATELET COUNT 523 X10'3 (140-440); RED CELL DISTRIBUTION WIDTH 17.5 % (11.5-14.5); WHITE BLOOD COUNT 13.7 X10'3 (4.5-11.0)
[2021-05-19] MEDS: morphine 2 MG/ML inj. syringe IV PRN ×2 (05:21→15:26)
--- NOTE | 2021-05-19 05:44 | NUR ---
PATIENT SAT 91% ON RA BUT REQUESTED SUPPLEMENTAL O2. PATIENT IS CURRENTLY ON 2 L.PATIENT HAD A LARGE BM WHICH DIRTY ENTIRE BOTTOM INCLUDING THE AMPUTED LEG. SOCK DIRTY WITH POOP. GOT HCICHO BANDAGE FROM SURGICAL FLOOR TO WRAP THE LEG. 0.5ML MORPHINE WAS GIVEN PRIOR TO WOUND CARE. PATIENT CURRENTLY RESTING IN BED IN STABLE CONDITION. NEEDS MET. WILL CONTINUE MONITOR PATIENT.
[2021-05-19 05:52] LABS: ALBUMIN 1.6 G/DL (3.4-5.0); ANION GAP 15 (8-16); BLOOD UREA NITROGEN 51 MG/DL (7-18); BUN/CREATININE RATIO 20.6 (6.6-38.0); CHLORIDE 100 MMOL/L (99-107); CREATININE 2.47 MG/DL (0.40-0.90); GLUCOSE 393 MG/DL (70-104); POTASSIUM 4.4 MMOL/L (3.5-5.1); SODIUM 136 MMOL/L (135-145); TOTAL CARBON DIOXIDE 20.9 MMOL/L (24-32); eGFR 19 ML/MIN
[2021-05-19 06:00] VITALS: BP 159/66
[2021-05-19] MEDS: HYDROcodone/acetaminophen 10/325mg tab PO PRN ×2 (06:52→12:40)
--- NOTE | 2021-05-19 07:06 | NUR ---
AFTER PATIENT RECEIVED ORDERED MORPHINE SHE GOT MAD AT ME AND ASK ME TO GET A PROGRESS CLERK PUMP RIGHT NOW. THEN WHEN RETURN TO REASSESS PATIENT, SHE STATES MORPHINE HAS HELPED TO RELIEVE HER PAIN. PATIENT IS COMPLAINING STATING THAT SHE BEEN DEALING WITH FOOT ISSUES FOR THEN YEARS NOW. SHE LOST EVERYTHING. SHE ASKS THAT I STAY IN THE ROOM WITH HER. REPORT GIVEN TO DAY SHIFT SHERMAN PENNY. ALL QUESTIONS ANSWERED. RN MADE AWARE ABOUT PATIENT WOUND VAC WIRE FOUND IN BED CUT INTO 2 THIS AM. SHE IS AWARE OF THE PATIENT WOUND WRAP WITH CHICHO BANDAGE. PATIENT IS CURRENTLY RESTING ON 3L NC IN BED .NO APPARENT DISTRESS NOTED. OVER BEDTABLE AND CALL LIGHT WITHIN EASY REACH. ALL SAFETY IN PLACE.
[2021-05-19] MEDS: levoTHYROXINE 25mcg tablet PO SCH (07:16)
[2021-05-19] MEDS: metoprolol succinate 25mg (24-HOUR) SR. Tablet PO SCH (07:16)
[2021-05-19] MEDS: furosemide 20 MG/2 ML vial IV SCH ×2 (07:16→21:33)
[2021-05-19] MEDS: aspirin 81mg, enteric-coated 1 TAB TABLET.DR PO SCH (07:16)
[2021-05-19] MEDS: docusate sod 100mg capsule PO SCH ×3 (07:16→21:33)
[2021-05-19] MEDS: lactobacillus rhamnosus 10,000 MMU CELLS/CAPSULE PO SCH ×2 (07:16→21:33)
[2021-05-19] MEDS: amLODIPine 5mg tablet PO SCH (07:19)
[2021-05-19] MEDS: multivitamins, therapeutics tablet PO SCH (07:20)
[2021-05-19] MEDS: insulin Lispro (HumaLOG) vial - multi-dose SQ SCH ×2 (08:25→14:08)
[2021-05-19 11:00] VITALS: BP 142/48
[2021-05-19 15:00] VITALS: BP 141/60
[2021-05-19 18:00] VITALS: BP 143/60
--- NOTE | 2021-05-19 19:00 | NUR ---
Dr. spence called regarding pt SOB RT was paged about the patient symptom and treatment PATIENT PHIL JACOB PCU room 11, need a neb treatment . she has shortness of breath, fast breathing and a wheezing , gabrielle RN [phone] , thank you
[2021-05-19] MEDS: albuterol 2.5 MG/3 ML nebule NEB PRN (19:08)
[2021-05-19] MEDS: atorvastatin 20mg tablet PO SCH ×2 (21:00→21:33)
--- NOTE | 2021-05-19 21:08 | NUR ---
Documented "Not Done" on reassessments of zofran, norco, and morphine that were assigned and not completed prior to my shift (1800 of 05/19)
[2021-05-19] MEDS: insulin glargine (Lantus) pen - multi-dose SQ SCH (21:32)
[2021-05-19 22:00] VITALS: BP 135/64
[2021-05-20 02:00] VITALS: BP 135/55
[2021-05-20] MEDS: VANCOMYCIN LEVEL IV SCH (03:00)
[2021-05-20] MEDS: HYDROcodone/acetaminophen 10/325mg tab PO PRN ×3 (03:30→16:05)
--- NOTE | 2021-05-20 03:41 | NUR ---
Paged RT "re: [phone] - Kira Berry - requesting RT treatment. TY Williams [phone]"
[2021-05-20] MEDS: albuterol 2.5 MG/3 ML nebule NEB PRN ×5 (03:46→23:10)
[2021-05-20] MEDS: morphine 2 MG/ML inj. syringe IV PRN ×3 (04:48→19:21)
--- NOTE | 2021-05-20 06:30 | NUR ---
Patient in room PCU 3011. I have received report from Lia and had the opportunity to ask questions and assume patient care.
[2021-05-20 06:35] LABS: ALBUMIN 1.6 G/DL (3.4-5.0); ANION GAP 16 (8-16); BLOOD UREA NITROGEN 49 MG/DL (7-18); BUN/CREATININE RATIO 21.5 (6.6-38.0); CALCIUM 9.1 MG/DL (8.5-10.1); CHLORIDE 103 MMOL/L (99-107); CREATININE 2.28 MG/DL (0.40-0.90); GLUCOSE 262 MG/DL (70-104); POTASSIUM 4.2 MMOL/L (3.5-5.1); SODIUM 138 MMOL/L (135-145); TOTAL CARBON DIOXIDE 18.7 MMOL/L (24-32); VANCOMYCIN,RANDOM 15.5 UG/ML; eGFR 21 ML/MIN
[2021-05-20 06:42] LABS: BASOPHILS # (AUTO) 0.1 X10'3 (0-0.2); EOSINOPHILS # (AUTO) 0.2 X10'3 (0-0.9); EOSINOPHILS % (AUTO) 1.2 % (0-6); HEMATOCRIT 22.8 % (35.0-45.0); HEMOGLOBIN 7.3 g/dl (12.0-16.0); LYMPHOCYTES # (AUTO) 1.6 X10'3 (1.1-4.8); LYMPHOCYTES % (AUTO) 10.7 % (21-51); MEAN CORPUSCULAR HGB CONC 32.1 g/dL (33.0-36.5); MEAN PLATELET VOLUME 8.3 FL (7.4-10.4); MONOCYTES # (AUTO) 1.8 X10'3 (0-0.9); MONOCYTES % (AUTO) 12.4 % (2-12); NEUTROPHILS # (AUTO) 10.8 X10'3 (1.8-7.7); NEUTROPHILS % (AUTO) 74.7 % (42-75); PLATELET COUNT 563 X10'3 (140-440); RED BLOOD COUNT 2.72 X10'6 (4.20-5.60); RED CELL DISTRIBUTION WIDTH 17.7 % (11.5-14.5); WHITE BLOOD COUNT 14.5 X10'3 (4.5-11.0)
--- NOTE | 2021-05-20 06:57 | NUR ---
Problems reprioritized. Patient report given, questions answered & plan of care reviewed with SHERMAN Nation.
[2021-05-20 07:00] VITALS: BP 110/52
[2021-05-20 07:45] LABS: NUCLEATED RED BLOOD CELLS 1 /100WBC (0-0); PLATELET ESTIMATE INCREASED; TOTAL CELLS COUNTED 100
[2021-05-20 07:46] LABS: ANISOCYTOSIS 1+; HYPOCHROMASIA 1+; POLYCHROMASIA 1+; ROULEAUX 1+; TOXIC GRANULATION 1+
[2021-05-20] MEDS: furosemide 20 MG/2 ML vial IV SCH ×2 (08:23→19:20)
[2021-05-20] MEDS: aspirin 81mg, enteric-coated 1 TAB TABLET.DR PO SCH (08:23)
[2021-05-20] MEDS: lactobacillus rhamnosus 10,000 MMU CELLS/CAPSULE PO SCH ×2 (08:24→19:20)
[2021-05-20] MEDS: multivitamins, therapeutics tablet PO SCH (08:24)
[2021-05-20] MEDS: metoprolol succinate 25mg (24-HOUR) SR. Tablet PO SCH (08:24)
[2021-05-20] MEDS: amLODIPine 5mg tablet PO SCH (08:25)
[2021-05-20] MEDS: levoTHYROXINE 25mcg tablet PO SCH (08:26)
[2021-05-20] MEDS: insulin Lispro (HumaLOG) vial - multi-dose SQ SCH ×3 (09:35→22:50)
[2021-05-20 11:00] VITALS: BP 108/52
[2021-05-20] MEDS: guaiFENesin/DM 10ml UD oral syrup PO PRN (11:32)
--- NOTE | 2021-05-20 12:16 | NUR ---
code status change PAGER ID: [phone] MESSAGE: room 3011A Kira Berry, patient requesting code status change, from DNR to DNI. clarified and verified with RN and notified Charge nurse. can you please change in chart? thank you, Chapis WHITAKER
[2021-05-20 18:00] VITALS: BP 149/74
[2021-05-20] MEDS: docusate sod 100mg capsule PO SCH (19:20)
[2021-05-20 22:00] VITALS: BP 125/57
[2021-05-20] MEDS: insulin glargine (Lantus) pen - multi-dose SQ SCH (22:48)
[2021-05-21] MEDS: HYDROcodone/acetaminophen 10/325mg tab PO PRN ×5 (00:13→21:52)
[2021-05-21] MEDS: ALPRAZolam 0.25mg tablet PO PRN ×2 (00:13→22:39)
[2021-05-21 02:00] VITALS: BP 110/59
[2021-05-21] MEDS: VANCOMYCIN LEVEL IV SCH (02:24)
[2021-05-21] MEDS: albuterol 2.5 MG/3 ML nebule NEB PRN ×3 (02:51→20:39)
--- NOTE | 2021-05-21 06:00 | NUR ---
Patient in room BLU 352. I have received report from Krystal and had the opportunity to ask questions and assume patient care. Patient's needs are currently met and is resting in bed.
--- NOTE | 2021-05-21 06:52 | NUR ---
Patient in room PCU 3011. I have received report from Krystal WHITAKER and had the opportunity to ask questions and assume patient care.
[2021-05-21 07:00] VITALS: BP 181/81
[2021-05-21 07:01] LABS: BASOPHILS # (AUTO) 0.2 X10'3 (0-0.2); BASOPHILS % (AUTO) 1.5 % (0-1); EOSINOPHILS # (AUTO) 0.3 X10'3 (0-0.9); EOSINOPHILS % (AUTO) 1.7 % (0-6); HEMATOCRIT 25.6 % (35.0-45.0); LYMPHOCYTES # (AUTO) 1.9 X10'3 (1.1-4.8); LYMPHOCYTES % (AUTO) 11.4 % (21-51); MEAN CORPUSCULAR HEMOGLOBIN 26.7 PG (27.0-31.0); MEAN CORPUSCULAR HGB CONC 31.2 g/dL (33.0-36.5); MEAN CORPUSCULAR VOLUME 85.5 FL (78-98); MEAN PLATELET VOLUME 8.2 FL (7.4-10.4); MONOCYTES # (AUTO) 1.6 X10'3 (0-0.9); MONOCYTES % (AUTO) 9.9 % (2-12); NEUTROPHILS # (AUTO) 12.5 X10'3 (1.8-7.7); NEUTROPHILS % (AUTO) 75.5 % (42-75); PLATELET COUNT 591 X10'3 (140-440); RED CELL DISTRIBUTION WIDTH 17.7 % (11.5-14.5); WHITE BLOOD COUNT 16.5 X10'3 (4.5-11.0)
[2021-05-21 07:15] LABS: ALBUMIN 1.8 G/DL (3.4-5.0); ANION GAP 14 (8-16); BLOOD UREA NITROGEN 49 MG/DL (7-18); BUN/CREATININE RATIO 21.6 (6.6-38.0); CALCIUM 9.7 MG/DL (8.5-10.1); CHLORIDE 103 MMOL/L (99-107); CREATININE 2.27 MG/DL (0.40-0.90); GLUCOSE 274 MG/DL (70-104); POTASSIUM 4.2 MMOL/L (3.5-5.1); SODIUM 139 MMOL/L (135-145); TOTAL CARBON DIOXIDE 21.8 MMOL/L (24-32); VANCOMYCIN,RANDOM 12.7 UG/ML; eGFR 21 ML/MIN
[2021-05-21] MEDS: docusate sod 100mg capsule PO SCH ×2 (08:00→20:00)
[2021-05-21 08:42] LABS: NUCLEATED RED BLOOD CELLS 1 /100WBC (0-0); PLATELET ESTIMATE INCREASED; TOTAL CELLS COUNTED 100
[2021-05-21 08:43] LABS: ANISOCYTOSIS 1+; HYPOCHROMASIA 1+
[2021-05-21] MEDS: insulin Lispro (HumaLOG) vial - multi-dose SQ SCH ×2 (09:25→15:24)
[2021-05-21] MEDS: furosemide 20 MG/2 ML vial IV SCH ×2 (09:27→20:36)
[2021-05-21] MEDS: lactobacillus rhamnosus 10,000 MMU CELLS/CAPSULE PO SCH ×2 (09:27→20:33)
[2021-05-21] MEDS: multivitamins, therapeutics tablet PO SCH (09:27)
[2021-05-21] MEDS: amLODIPine 5mg tablet PO SCH (09:27)
[2021-05-21] MEDS: levoTHYROXINE 25mcg tablet PO SCH (09:28)
[2021-05-21] MEDS: metoprolol succinate 25mg (24-HOUR) SR. Tablet PO SCH (09:28)
[2021-05-21] MEDS: aspirin 81mg, enteric-coated 1 TAB TABLET.DR PO SCH (09:28)
[2021-05-21 11:00] VITALS: BP 118/51
--- NOTE | 2021-05-21 11:00 | NUR ---
Received report from student nurse working with SHERMAN Naqvi. Awaiting patient arrival to room 352A, room is cleaned and ready.
[2021-05-21] MEDS: morphine 2 MG/ML inj. syringe IV PRN ×3 (11:10→20:35)
--- NOTE | 2021-05-21 11:50 | NUR ---
Patient report given, questions answered & plan of care reviewed with Marsha. Discussed patients hemovac, Surgeon needs to be contacted regarding vac line being cut Friday night. Receiving nurse is aware that this needs to be done.
[2021-05-21 12:00] VITALS: BP 143/81
--- NOTE | 2021-05-21 12:00 | NUR ---
Picked patient up from telemetry room number 3011 assessed her dressing at the bedside because I was told in report that the tubing to the hemovac was cut and then clamped with hemostats. CHICHO wrap is clean, dry, intact. Tubing is in fact cut and clamped with hemostats. Will notify
--- NOTE | 2021-05-21 12:00 | NUR ---
Orientee documentation: I have reviewed and agree with all interventions, assessments performed and documented by Mimi WHITAKER. Orientee Medication Administration: For this medication-pass time frame, all medication were reviewed, dispensed, administered and documented per hospital policy by Nely WHITAKER.
--- NOTE | 2021-05-21 12:16 | NUR ---
Report given to SHERMAN Chandra.
[2021-05-21] MEDS ORDERED: vancomycin/NS 1 GM ADD-VANTAGE 250 ML IV ONE (13:45)
--- NOTE | 2021-05-21 15:03 | NUR ---
MESSAGE: JADEN WHITAKER [phone] RE: PHIL JACOB 352. PTS REQUESTING IMMODIUM & VICKY GLUCERNA, THANK YOU
--- NOTE | 2021-05-21 16:22 | NUR ---
JADEN WHITAKER [phone] RE: PHIL JACOB 352. PT REQUESTING VICKY GLUCERNA & IMMODIUM. THANK YOU.
[2021-05-21] MEDS: loperamide 2mg capsule PO PRN ×2 (16:50→22:39)
[2021-05-21] MEDS: diphenhydrAMINE 50 mg/ml inj IV PRN (16:51)
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
[2021-05-21] MEDS: dextrose ORAL solution 15 GM/59 ML bottle PO PRN ×2 (17:40→18:05)
[2021-05-21] MEDS: NUT.TX.GLUC.INTOLER,LAC-FR,SOY (GLUCERNA) 237 ML PO SCH (18:00)
--- NOTE | 2021-05-21 18:00 | NUR ---
Patient in room BLU 352. I have received report from SHERMAN Chandra and had the opportunity to ask questions and assume patient care.
--- NOTE | 2021-05-21 18:55 | NUR ---
Patient in room BLU 352. I have received report from Corazon WHITAKER and had the opportunity to ask questions and assume patient care.
[2021-05-21 20:00] VITALS: BP 147/68
[2021-05-21] MEDS: atorvastatin 20mg tablet PO SCH (20:34)
--- NOTE | 2021-05-21 21:00 | NUR ---
Hemovac removed without incident, minimal drainage, tubing intact. Folded 4x4 gauze and Tegaderm applied.
[2021-05-21] MEDS: guaiFENesin/DM 10ml UD oral syrup PO PRN (21:51)
[2021-05-21] MEDS: insulin glargine (Lantus) pen - multi-dose SQ SCH (21:54)
[2021-05-22] VITALS: BP 135/62
[2021-05-22] MEDS: morphine 2 MG/ML inj. syringe IV PRN ×3 (00:34→21:13)
[2021-05-22] MEDS: HYDROcodone/acetaminophen 10/325mg tab PO PRN ×5 (02:51→22:55)
[2021-05-22] MEDS: VANCOMYCIN LEVEL IV SCH (03:00)
--- NOTE | 2021-05-22 06:49 | NUR ---
Problems reprioritized. Patient report given, questions answered & plan of care reviewed with Aurora WHITAKER.
--- NOTE | 2021-05-22 06:51 | NUR ---
Problems reprioritized. Patient report given, questions answered & plan of care reviewed with SHERMAN Simon.
--- NOTE | 2021-05-22 06:54 | NUR ---
Student documentation: I have reviewed and agree with all interventions, assessments performed and documented by [employer] student.
--- NOTE | 2021-05-22 07:00 | NUR ---
Patient in room BLU 352. I have received report from Isabel WHITAKER and had the opportunity to ask questions and assume patient care.
--- NOTE | 2021-05-22 07:35 | NUR ---
PAGER ID: [phone] MESSAGE: re: room 352, Kira Berry Critical Vanco level 20.8. Orders? Thank you, Aurora [email or web address] Will continue to monitor.
[2021-05-22 08:00] VITALS: BP 145/72
[2021-05-22] MEDS: lactobacillus rhamnosus 10,000 MMU CELLS/CAPSULE PO SCH ×2 (08:00→19:29)
[2021-05-22] MEDS: multivitamins, therapeutics tablet PO SCH (08:00)
[2021-05-22] MEDS: docusate sod 100mg capsule PO SCH ×2 (08:00→19:36)
[2021-05-22] MEDS: NUT.TX.GLUC.INTOLER,LAC-FR,SOY (GLUCERNA) 237 ML PO SCH ×3 (08:00→18:00)
[2021-05-22 08:35] VITALS: BP 136/79
--- NOTE | 2021-05-22 09:00 | NUR ---
Pt eating food slowly and wanting to save some for later, with diabetic education given and how this will affect blood sugars and insulin dosing, possibly creating hyper/hypoglycemic events. Pt verbalized understanding yet still wanted to "sip on Glucerna" over time. MD aware. Will continue to monitor.
[2021-05-22 09:04] LABS: BASOPHILS % (AUTO) 0.3 % (0-1); EOSINOPHILS # (AUTO) 0.6 X10'3 (0-0.9); HEMATOCRIT 24.9 % (35.0-45.0); LYMPHOCYTES # (AUTO) 1.9 X10'3 (1.1-4.8); MEAN CORPUSCULAR VOLUME 84.6 FL (78-98); MEAN PLATELET VOLUME 7.9 FL (7.4-10.4); MONOCYTES # (AUTO) 1.4 X10'3 (0-0.9); MONOCYTES % (AUTO) 9.7 % (2-12); NEUTROPHILS # (AUTO) 10.4 X10'3 (1.8-7.7); PLATELET COUNT 572 X10'3 (140-440); RED BLOOD COUNT 2.95 X10'6 (4.20-5.60); RED CELL DISTRIBUTION WIDTH 17.5 % (11.5-14.5); WHITE BLOOD COUNT 14.2 X10'3 (4.5-11.0)
[2021-05-22] MEDS: insulin Lispro (HumaLOG) vial - multi-dose SQ SCH ×4 (09:57→21:12)
[2021-05-22] MEDS: furosemide 20 MG/2 ML vial IV SCH ×2 (10:02→19:29)
[2021-05-22 10:08] LABS: ALANINE AMINOTRANSFERASE 113 U/L (12-78); ALBUMIN 1.6 G/DL (3.4-5.0); ALBUMIN/GLOBULIN RATIO 0.3 (1.1-1.5); ALKALINE PHOSPHATASE 92 IU/L (46-116); ASPARTATE AMINO TRANSFERASE 142 U/L (10-37); BILIRUBIN,TOTAL 0.3 MG/DL (0.1-1.0); BLOOD UREA NITROGEN 45 MG/DL (7-18); CALCIUM 9.1 MG/DL (8.5-10.1); CHLORIDE 101 MMOL/L (99-107); CREATININE 2.25 MG/DL (0.40-0.90); GLUCOSE 246 MG/DL (70-104); TOTAL CARBON DIOXIDE 24.5 MMOL/L (24-32); TOTAL PROTEIN 6.4 G/DL (6.4-8.2); eGFR 21 ML/MIN
[2021-05-22 10:14] LABS: ANION GAP 8 (8-16); POTASSIUM 4.4 MMOL/L (3.5-5.1); SODIUM 133 MMOL/L (135-145)
[2021-05-22] MEDS: aspirin 81mg, enteric-coated 1 TAB TABLET.DR PO SCH (10:18)
[2021-05-22] MEDS: levoTHYROXINE 25mcg tablet PO SCH (10:19)
[2021-05-22] MEDS: amLODIPine 5mg tablet PO SCH (10:21)
[2021-05-22] MEDS: metoprolol succinate 25mg (24-HOUR) SR. Tablet PO SCH (10:23)
[2021-05-22 10:57] LABS: NUCLEATED RED BLOOD CELLS 1 /100WBC (0-0); TOTAL CELLS COUNTED 100
[2021-05-22 10:58] LABS: ANISOCYTOSIS 1+; GIANT PLATELET FEW; PLATELET ESTIMATE INCREASED; POLYCHROMASIA FEW
--- NOTE | 2021-05-22 11:07 | NUR ---
Student Medication Administration: For this medication-pass time frame [id number], all medications were reviewed,administered and documented per hospital policy by Nguyen Cox.
[2021-05-22 12:00] VITALS: BP 114/53
--- NOTE | 2021-05-22 12:02 | NUR ---
Problems reprioritized. Patient report given, questions answered & plan of care reviewed with
--- NOTE | 2021-05-22 12:05 | NUR ---
RECEIVED REPORT FROM MIGUEL ÁNGEL AND ASSUMED CARE OF PT
--- NOTE | 2021-05-22 12:49 | NUR ---
patient's Glucerna would not scan. manually entered administration after doing med check.
--- NOTE | 2021-05-22 13:32 | NUR ---
Pt did not feel comfortable with receiving 40 units Humalog for blood glucose of 322 and carb intake. Pt only wanted coverage for the 322 blood glucose of 26 units. Pt diabetes education given, especially hypo and hyper glycemia s/sx and to report to RN.
--- NOTE | 2021-05-22 14:00 | NUR ---
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 Sutures intact, small amount of sanguinous drainage noted. Pt painful with procedure with additional pain meds given as ordered. Will continue to monitor.
--- NOTE | 2021-05-22 14:21 | NUR ---
PAGER ID: [phone] MESSAGE: re: room 352, Kira Berry: [place] [id number], continues with moist nonproductive occasional cough. And, pt refused full insulin lunchtime coverage. Did you still want Lantus reduced on NOCs? Thank you, Aurora [phone] Will continue to monitor.
--- NOTE | 2021-05-22 15:38 | NUR ---
PAGER ID: [phone] MESSAGE: re: 352 Kira Berry 2nd request. Please call. Thank you, Aurora [phone]
--- NOTE | 2021-05-22 16:28 | NUR ---
Phone call from Dr Armendariz, report discussed re: previous messages sent (ProBNP, pt's blood glucose and insulin given/refused, food intake) with no new orders, and no change in NOC Lantus. Will continue to monitor.
--- NOTE | 2021-05-22 17:34 | NUR ---
Student Medication Administration: For this medication-pass time frame, all medication were reviewed, dispensed, administered and documented per hospital policy by Gokul skilled nursing facility counselor.
--- NOTE | 2021-05-22 17:34 | NUR ---
Student documentation: I have reviewed and agree with all interventions, assessments performed and documented by Gokul, nursing unit manager.
[2021-05-22] MEDS: loperamide 2mg capsule PO PRN (17:59)
[2021-05-22] MEDS ORDERED: LIDOcaine 2% 10ml TOPICAL JELLY (Urojet) TP ONE (18:05)
--- NOTE | 2021-05-22 18:05 | NUR ---
Problems reprioritized. Patient report given, questions answered & plan of care reviewed with SHERMAN DEL ROSARIO.
--- NOTE | 2021-05-22 18:15 | NUR ---
Patient in room BLU 352. I have received report from SHERMAN Simon and had the opportunity to ask questions and assume patient care.
--- NOTE | 2021-05-22 18:35 | NUR ---
Problems reprioritized. Patient report given, questions answered & plan of care reviewed with Isabel WHITAKER.
--- NOTE | 2021-05-22 18:57 | NUR ---
Patient in room BLU 352. I have received report from Aurora WHITAKER and had the opportunity to ask questions and assume patient care.
[2021-05-22 20:00] VITALS: BP 128/54
[2021-05-22] MEDS: albuterol 2.5 MG/3 ML nebule NEB PRN (20:48)
[2021-05-22] MEDS: atorvastatin 20mg tablet PO SCH (21:08)
[2021-05-22] MEDS: insulin glargine (Lantus) pen - multi-dose SQ SCH (21:11)
[2021-05-22] MEDS: ALPRAZolam 0.25mg tablet PO PRN (21:57)
[2021-05-22] MEDS: guaiFENesin/DM 10ml UD oral syrup PO PRN (23:16)
[2021-05-23] VITALS: BP 104/46
[2021-05-23] MEDS: VANCOMYCIN LEVEL IV SCH (03:00)
[2021-05-23] MEDS: morphine 2 MG/ML inj. syringe IV PRN (03:18)
[2021-05-23] MEDS: albuterol 2.5 MG/3 ML nebule NEB PRN ×2 (03:33→17:19)
[2021-05-23] MEDS: HYDROcodone/acetaminophen 10/325mg tab PO PRN ×2 (05:30→12:22)
[2021-05-23 06:14] LABS: BASOPHILS # (AUTO) 0.2 X10'3 (0-0.2); EOSINOPHILS # (AUTO) 0.5 X10'3 (0-0.9); EOSINOPHILS % (AUTO) 2.7 % (0-6); HEMATOCRIT 25.4 % (35.0-45.0); HEMOGLOBIN 7.8 g/dl (12.0-16.0); LYMPHOCYTES # (AUTO) 2.2 X10'3 (1.1-4.8); LYMPHOCYTES % (AUTO) 12.7 % (21-51); MEAN CORPUSCULAR HEMOGLOBIN 26.6 PG (27.0-31.0); MEAN CORPUSCULAR HGB CONC 30.8 g/dL (33.0-36.5); MEAN CORPUSCULAR VOLUME 86.3 FL (78-98); MEAN PLATELET VOLUME 8.5 FL (7.4-10.4); MONOCYTES # (AUTO) 1.6 X10'3 (0-0.9); MONOCYTES % (AUTO) 9.1 % (2-12); NEUTROPHILS % (AUTO) 74.5 % (42-75); PLATELET COUNT 591 X10'3 (140-440); RED BLOOD COUNT 2.94 X10'6 (4.20-5.60); RED CELL DISTRIBUTION WIDTH 17.3 % (11.5-14.5); WHITE BLOOD COUNT 17.5 X10'3 (4.5-11.0)
--- NOTE | 2021-05-23 06:15 | NUR ---
Problems reprioritized. Patient report given, questions answered & plan of care reviewed with SHERMAN Dunbar.
--- NOTE | 2021-05-23 06:23 | NUR ---
Problems reprioritized. Patient report given, questions answered & plan of care reviewed with Bettina WHITAKER.
--- NOTE | 2021-05-23 06:23 | NUR ---
Student documentation: I have reviewed and agree with all interventions, assessments performed and documented by [employer] student.
[2021-05-23 06:50] LABS: ALANINE AMINOTRANSFERASE 99 U/L (12-78); ALBUMIN 1.6 G/DL (3.4-5.0); ALBUMIN/GLOBULIN RATIO 0.4 (1.1-1.5); ALKALINE PHOSPHATASE 122 IU/L (46-116); ANION GAP 11 (8-16); ASPARTATE AMINO TRANSFERASE 90 U/L (10-37); BILIRUBIN,TOTAL 0.3 MG/DL (0.1-1.0); BLOOD UREA NITROGEN 53 MG/DL (7-18); BUN/CREATININE RATIO 25.1 (6.6-38.0); CALCIUM 8.9 MG/DL (8.5-10.1); CHLORIDE 101 MMOL/L (99-107); CREATININE 2.11 MG/DL (0.40-0.90); GLUCOSE 310 MG/DL (70-104); POTASSIUM 4.3 MMOL/L (3.5-5.1); SODIUM 134 MMOL/L (135-145); TOTAL CARBON DIOXIDE 22.5 MMOL/L (24-32); TOTAL PROTEIN 6.1 G/DL (6.4-8.2); VANCOMYCIN,TROUGH 16.8 UG/ML (6.0-14.0); eGFR 23 ML/MIN
[2021-05-23 06:51] LABS: ANISOCYTOSIS 1+; LARGE PLATELETS FEW; NUCLEATED RED BLOOD CELLS 1 /100WBC (0-0); PLATELET ESTIMATE INCREASED; POLYCHROMASIA 1+; TEAR DROP CELLS FEW; TOTAL CELLS COUNTED 100
[2021-05-23 08:00] VITALS: BP 153/59
[2021-05-23] MEDS: docusate sod 100mg capsule PO SCH (08:00)
[2021-05-23] MEDS: multivitamins, therapeutics tablet PO SCH (08:00)
[2021-05-23] MEDS: lactobacillus rhamnosus 10,000 MMU CELLS/CAPSULE PO SCH ×2 (08:00→20:38)
[2021-05-23] MEDS: loperamide 2mg capsule PO PRN (08:02)
[2021-05-23] MEDS: furosemide 20 MG/2 ML vial IV SCH ×2 (08:02→20:43)
[2021-05-23] MEDS: levoTHYROXINE 25mcg tablet PO SCH (08:02)
[2021-05-23] MEDS: aspirin 81mg, enteric-coated 1 TAB TABLET.DR PO SCH (08:02)
[2021-05-23] MEDS: metoprolol succinate 25mg (24-HOUR) SR. Tablet PO SCH (08:03)
[2021-05-23] MEDS: amLODIPine 5mg tablet PO SCH (08:03)
[2021-05-23] MEDS: NUT.TX.GLUC.INTOLER,LAC-FR,SOY (GLUCERNA) 237 ML PO SCH ×3 (08:04→18:46)
--- NOTE | 2021-05-23 09:08 | NUR ---
Diabetes Consult: Has been addressed this admit. Please see previous RD assessment. Addendum: 05/23/21 at [address] Amended: Links added.
[2021-05-23] MEDS: insulin Lispro (HumaLOG) vial - multi-dose SQ SCH ×3 (09:27→19:33)
[2021-05-23 11:00] VITALS: BP 126/67
[2021-05-23] MEDS ORDERED: pregabalin 75mg capsule PO ONE (12:40)
[2021-05-23] MEDS ORDERED: morphine 2 MG/ML inj. syringe IV STA (13:37)
[2021-05-23] MEDS: loperamide 2mg capsule PO SCH ×2 (14:48→20:40)
[2021-05-23] MEDS: guaiFENesin/DM 10ml UD oral syrup PO PRN (15:00)
[2021-05-23] MEDS ORDERED: CADD PCA waste documentation MC PRN (16:30)
[2021-05-23] MEDS ORDERED: ALPRAZolam 0.25mg tablet PO PRN (16:30)
[2021-05-23] MEDS ORDERED: naloxone 0.4 mg/ml inj IV PRN (16:30)
[2021-05-23] MEDS ORDERED: morphine/NS 1 mg/ml 50ml CADD 50 ML IV SCH (16:40)
--- NOTE | 2021-05-23 18:47 | NUR ---
Problems reprioritized. Patient report given, questions answered & plan of care reviewed with SHERMAN CHAVIS.
--- NOTE | 2021-05-23 19:03 | NUR ---
Patient in room BLU 352. I have received report from Bettina WHITAKER and had the opportunity to ask questions and assume patient care.
[2021-05-23 20:00] VITALS: BP 136/50
[2021-05-23] MEDS: atorvastatin 20mg tablet PO SCH (20:39)
[2021-05-23] MEDS: pregabalin 75mg capsule PO SCH (20:39)
[2021-05-23] MEDS: insulin glargine (Lantus) pen - multi-dose SQ SCH (22:09)
[2021-05-24] VITALS: BP 133/48
[2021-05-24] MEDS: loperamide 2mg capsule PO SCH ×2 (02:00→08:39)
[2021-05-24] MEDS: VANCOMYCIN LEVEL IV SCH (03:00)
--- NOTE | 2021-05-24 06:33 | NUR ---
Problems reprioritized. Patient report given, questions answered & plan of care reviewed with Leeanne WHITAKER.
[2021-05-24] MEDS: morphine/NS 1 mg/ml 50ml CADD 50 ML IV SCH ×6 (07:00→17:00)
--- NOTE | 2021-05-24 07:00 | NUR ---
CADD ASSESSMENT: MS CADD 1mg/1ML no continuous or bolus dose. Res. volume = 47.5mg 1 attempt 1 dose given. Pt. appears to be sleeping with rise and fall of chest.
[2021-05-24 08:00] VITALS: BP 121/65
[2021-05-24] MEDS: aspirin 81mg, enteric-coated 1 TAB TABLET.DR PO SCH (08:38)
[2021-05-24] MEDS: multivitamins, therapeutics tablet PO SCH (08:38)
[2021-05-24] MEDS: pregabalin 75mg capsule PO SCH ×3 (08:39→20:43)
[2021-05-24] MEDS: levoTHYROXINE 25mcg tablet PO SCH (08:39)
[2021-05-24] MEDS: furosemide 20 MG/2 ML vial IV SCH ×2 (08:39→20:43)
[2021-05-24] MEDS: NUT.TX.GLUC.INTOLER,LAC-FR,SOY (GLUCERNA) 237 ML PO SCH ×3 (08:39→18:38)
[2021-05-24] MEDS: lactobacillus rhamnosus 10,000 MMU CELLS/CAPSULE PO SCH ×2 (08:39→20:43)
[2021-05-24] MEDS: amLODIPine 5mg tablet PO SCH (08:40)
[2021-05-24] MEDS: metoprolol succinate 25mg (24-HOUR) SR. Tablet PO SCH (08:40)
[2021-05-24 08:47] LABS: BASOPHILS # (AUTO) 0.2 X10'3 (0-0.2); BASOPHILS % (AUTO) 0.8 % (0-1); EOSINOPHILS # (AUTO) 0.5 X10'3 (0-0.9); RED CELL DISTRIBUTION WIDTH 17.9 % (11.5-14.5)
[2021-05-24 08:51] LABS: EOSINOPHILS % (AUTO) 2.4 % (0-6); HEMATOCRIT 23.8 % (35.0-45.0); HEMOGLOBIN 7.5 g/dl (12.0-16.0); LYMPHOCYTES # (AUTO) 2.4 X10'3 (1.1-4.8); LYMPHOCYTES % (AUTO) 11.8 % (21-51); MEAN CORPUSCULAR HEMOGLOBIN 27.4 PG (27.0-31.0); MEAN CORPUSCULAR HGB CONC 31.8 g/dL (33.0-36.5); MEAN CORPUSCULAR VOLUME 86.3 FL (78-98); MEAN PLATELET VOLUME 8.8 FL (7.4-10.4); MONOCYTES # (AUTO) 1.9 X10'3 (0-0.9); MONOCYTES % (AUTO) 9.4 % (2-12); NEUTROPHILS # (AUTO) 15.1 X10'3 (1.8-7.7); NEUTROPHILS % (AUTO) 75.6 % (42-75); PLATELET COUNT 602 X10'3 (140-440); RED BLOOD COUNT 2.75 X10'6 (4.20-5.60)
--- NOTE | 2021-05-24 09:00 | NUR ---
CADD REASSESSMENT: Pt. awake and alert and orientated. No c/o pain at this time. RR. 18
[2021-05-24] MEDS: insulin Lispro (HumaLOG) vial - multi-dose SQ SCH ×3 (09:32→19:47)
[2021-05-24 09:44] LABS: ALANINE AMINOTRANSFERASE 76 U/L (12-78); ALBUMIN 1.6 G/DL (3.4-5.0); ALBUMIN/GLOBULIN RATIO 0.4 (1.1-1.5); ALKALINE PHOSPHATASE 104 IU/L (46-116); ANION GAP 13 (8-16); ASPARTATE AMINO TRANSFERASE 58 U/L (10-37); BILIRUBIN,TOTAL 0.3 MG/DL (0.1-1.0); BLOOD UREA NITROGEN 58 MG/DL (7-18); BUN/CREATININE RATIO 29.1 (6.6-38.0); CALCIUM 9.2 MG/DL (8.5-10.1); CHLORIDE 102 MMOL/L (99-107); CREATININE 1.99 MG/DL (0.40-0.90); GLUCOSE 191 MG/DL (70-104); POTASSIUM 4.7 MMOL/L (3.5-5.1); SODIUM 136 MMOL/L (135-145); TOTAL CARBON DIOXIDE 21.3 MMOL/L (24-32); VANCOMYCIN,TROUGH 14.8 UG/ML (6.0-14.0); eGFR 24 ML/MIN
--- NOTE | 2021-05-24 10:23 | NUR ---
1100 CADD ASSESSMENT: MS CADD 1mg/1ML no continuous or bolus dose. Res. volume = 45.5mg 3 attempt 3 dose given. Pt. awake and alert snacking and talking.
[2021-05-24] MEDS ORDERED: morphine/NS 1 mg/ml 50ml CADD 50 ML IV SCH (10:32)
[2021-05-24 11:00] VITALS: BP 110/62
[2021-05-24] MEDS: albuterol 2.5 MG/3 ML nebule NEB PRN (11:24)
[2021-05-24] MEDS ORDERED: vancomycin/NS 1 GM ADD-VANTAGE 250 ML IV ONE (12:30)
[2021-05-24 13:34] LABS: NUCLEATED RED BLOOD CELLS 2 /100WBC (0-0); TOTAL CELLS COUNTED 100
[2021-05-24 13:35] LABS: ANISOCYTOSIS 1+; PLATELET ESTIMATE INCREASED; POLYCHROMASIA 1+
--- NOTE | 2021-05-24 15:12 | NUR ---
Spoke with Teresa. Was unsure why UA and DC Doss order had not been completed from yesterday at 11 am and was not told anything in report. AIR BAG STRIPPER states she still wants FC DC'd and UA collected. F/C currently clamped to obtain UA sx. Also paged hospitalist about other pt. issues: PAGER ID: [phone] MESSAGE: Kira Berry 352 Pt. has dry hacking nonproductive cough. She is requesting steroids. Please note BNP. Would you like CXR? Leeanne [phone]
[2021-05-24 17:03] LABS: CLARITY,URINE CLOUDY (Clear); COLOR,URINE YELLOW (Yellow); GLUCOSE, URINE 500 mg/dl (Neg); KETONES,URINE NEGATIVE (Neg); PROTEIN,URINE >=300 mg/dl (Neg); UA COLLECTION TYPE FOLEY CATH
[2021-05-24 17:04] LABS: LEUKOCYTE ESTERASE ,URINE SMALL (Neg); NITRITES, URINE POSITIVE (Neg); OCCULT BLOOD,URINE MODERATE (Neg); UROBILINOGEN,URINE 0.2 E.U/dL (0.2-1.0)
[2021-05-24 17:16] LABS: BACTERIA,URINE 4+ /HPF (Neg); RBC,URINE 20-50 /HPF (0-2); WBC,URINE 50-100 /HPF (0-4)
[2021-05-24 17:17] LABS: HYALINE CASTS 0-3 /LPF (NEGATIVE); MUCUS STRANDS FEW /LPF (Neg); RENAL CELLS, URINE FEW /HPF; SQUAMOUS EPITHELIAL CELL,UR FEW /LPF (FEW); TRANSITIONAL EPI CELLS,URINE FEW /HPF; WBC CLUMPS,URINE MODERATE /HPF (NEGATIVE)
[2021-05-24] MEDS: psyllium seed 3.4 gm packet PO SCH (21:03)
--- NOTE | 2021-05-24 21:24 | NUR ---
Patient refused pregablin. Patient stated, "It gives me the bad shakes". Medication returned to omnicelle
[2021-05-24] MEDS: insulin glargine (Lantus) pen - multi-dose SQ SCH (22:05)
[2021-05-24] MEDS: atorvastatin 20mg tablet PO SCH (23:00)
[2021-05-25] MEDS: dextrose ORAL solution 15 GM/59 ML bottle PO PRN (00:51)
[2021-05-25] MEDS: VANCOMYCIN LEVEL IV SCH (03:00)
[2021-05-25] MEDS: aspirin 81mg, enteric-coated 1 TAB TABLET.DR PO SCH (07:03)
[2021-05-25] MEDS: levoTHYROXINE 25mcg tablet PO SCH (07:03)
[2021-05-25] MEDS: lactobacillus rhamnosus 10,000 MMU CELLS/CAPSULE PO SCH ×2 (07:03→21:10)
[2021-05-25 07:04] LABS: BASOPHILS # (AUTO) 0.2 X10'3 (0-0.2); HEMOGLOBIN 7.3 g/dl (12.0-16.0); WHITE BLOOD COUNT 19.9 X10'3 (4.5-11.0)
[2021-05-25 07:06] LABS: BASOPHILS % (AUTO) 0.9 % (0-1); EOSINOPHILS # (AUTO) 0.5 X10'3 (0-0.9); EOSINOPHILS % (AUTO) 2.3 % (0-6); HEMATOCRIT 22.5 % (35.0-45.0); LYMPHOCYTES # (AUTO) 1.8 X10'3 (1.1-4.8); LYMPHOCYTES % (AUTO) 9.1 % (21-51); MEAN CORPUSCULAR HEMOGLOBIN 27.5 PG (27.0-31.0); MEAN CORPUSCULAR HGB CONC 32.3 g/dL (33.0-36.5); MEAN CORPUSCULAR VOLUME 85.4 FL (78-98); MEAN PLATELET VOLUME 8.6 FL (7.4-10.4); MONOCYTES # (AUTO) 1.8 X10'3 (0-0.9); MONOCYTES % (AUTO) 8.9 % (2-12); NEUTROPHILS # (AUTO) 15.7 X10'3 (1.8-7.7); NEUTROPHILS % (AUTO) 78.8 % (42-75); PLATELET COUNT 621 X10'3 (140-440); RED BLOOD COUNT 2.64 X10'6 (4.20-5.60); RED CELL DISTRIBUTION WIDTH 18.1 % (11.5-14.5)
[2021-05-25] MEDS: amLODIPine 5mg tablet PO SCH (07:07)
[2021-05-25] MEDS: multivitamins, therapeutics tablet PO SCH (07:07)
[2021-05-25] MEDS: metoprolol succinate 25mg (24-HOUR) SR. Tablet PO SCH (07:08)
[2021-05-25] MEDS: pregabalin 75mg capsule PO SCH ×2 (07:12→21:10)
--- NOTE | 2021-05-25 07:22 | NUR ---
Patient in room BLU 352. I have received report from Reena WHITAKER and had the opportunity to ask questions and assume patient care. No charting completed on CADD on NOC shift.
[2021-05-25 07:30] LABS: ALANINE AMINOTRANSFERASE 60 U/L (12-78); ALBUMIN 1.6 G/DL (3.4-5.0); ALBUMIN/GLOBULIN RATIO 0.4 (1.1-1.5); ALKALINE PHOSPHATASE 93 IU/L (46-116); ANION GAP 10 (8-16); ASPARTATE AMINO TRANSFERASE 53 U/L (10-37); BILIRUBIN,TOTAL 0.3 MG/DL (0.1-1.0); BLOOD UREA NITROGEN 60 MG/DL (7-18); BUN/CREATININE RATIO 29.3 (6.6-38.0); CALCIUM 9.2 MG/DL (8.5-10.1); CHLORIDE 103 MMOL/L (99-107); CREATININE 2.05 MG/DL (0.40-0.90); GLUCOSE 253 MG/DL (70-104); POTASSIUM 4.3 MMOL/L (3.5-5.1); SODIUM 136 MMOL/L (135-145); TOTAL PROTEIN 5.9 G/DL (6.4-8.2); eGFR 23 ML/MIN
[2021-05-25 07:34] LABS: ANISOCYTOSIS 2+; MICROCYTOSIS 1+; NUCLEATED RED BLOOD CELLS 1 /100WBC (0-0); PLATELET ESTIMATE INCREASED; POIKILOCYTOSIS FEW; POLYCHROMASIA 1+; TOTAL CELLS COUNTED 100
[2021-05-25 07:36] LABS: VANCOMYCIN,TROUGH 23.3 UG/ML (6.0-14.0)
[2021-05-25] MEDS: furosemide 20 MG/2 ML vial IV SCH ×2 (07:36→21:09)
[2021-05-25 08:00] VITALS: BP 152/63
[2021-05-25] MEDS ORDERED: loperamide 2mg capsule PO PRN (08:00)
[2021-05-25] MEDS: NUT.TX.GLUC.INTOLER,LAC-FR,SOY (GLUCERNA) 237 ML PO SCH ×3 (08:00→18:05)
[2021-05-25] MEDS: morphine/NS 1 mg/ml 50ml CADD 50 ML IV SCH (09:00)
[2021-05-25] MEDS: insulin Lispro (HumaLOG) vial - multi-dose SQ SCH ×3 (09:58→19:11)
--- NOTE | 2021-05-25 11:34 | NUR ---
Paged Dr. Armendariz concerning pain medication.
[2021-05-25] MEDS: HYDROcodone/acetaminophen 10/325mg tab PO PRN ×3 (11:44→23:17)
[2021-05-25] MEDS: morphine 4 MG/ML inj SYRINge IV PRN (14:08)
[2021-05-25] MEDS: nystatin 15 GM powder TP SCH ×2 (14:21→21:11)
--- NOTE | 2021-05-25 16:28 | NUR ---
Reassessment: Pt PO 100% avg Glucerna TIDWM and carb controlled/heart healthy meals meeting healing needs. LBM 05/23. Glu remains elevated 247-346 mg/dl on glycemic protocol having consistent lows late night/early AM per EMR. Will continue to monitor. Rec: 1. continue SB6/thin/carb controlled/heart healthy diet per DEAL ARCHITECT/MD recs; encourage PO; cottage cheese w/ fruit WB per request 2. chocolate Glucerna TIDWM per MD/pt request; encourage PO 3. MVI for wound healing 4. routine bowel care 5. scaled wt this admit; subsequent weekly wts Addendum: 05/25/21 at [address] Amended: Links added.
[2021-05-25 18:00] VITALS: BP 117/58
--- NOTE | 2021-05-25 18:10 | NUR ---
Student documentation: I have reviewed all interventions, assessments performed and documented by Kaushik MAC of [facility]. Student Medication Administration: For all medication-pass' all medication were reviewed, dispensed, administered and documented per hospital policy by Kaushik MAC.
--- NOTE | 2021-05-25 18:11 | NUR ---
Problems reprioritized. Patient report given, questions answered & plan of care reviewed with NOC shift RN.
--- NOTE | 2021-05-25 19:33 | NUR ---
Patient in room BLU 352. I have received report from IVANA WHITAKER and had the opportunity to ask questions and assume patient care.
[2021-05-25] MEDS: atorvastatin 20mg tablet PO SCH (21:08)
[2021-05-25] MEDS: psyllium seed 3.4 gm packet PO SCH (21:08)
[2021-05-25] MEDS: docusate sod 100mg capsule PO SCH (21:09)
[2021-05-25] MEDS: insulin glargine (Lantus) pen - multi-dose SQ SCH (21:15)
[2021-05-25] MEDS: guaiFENesin/DM 10ml UD oral syrup PO PRN (23:17)
[2021-05-26] VITALS: BP 98/50
[2021-05-26] MEDS: ALPRAZolam 0.25mg tablet PO PRN (00:10)
[2021-05-26] MEDS: VANCOMYCIN LEVEL IV SCH (03:00)
[2021-05-26 05:33] LABS: BASOPHILS # (AUTO) 0.2 X10'3 (0-0.2); BASOPHILS % (AUTO) 0.8 % (0-1); EOSINOPHILS # (AUTO) 0.3 X10'3 (0-0.9); EOSINOPHILS % (AUTO) 1.5 % (0-6); HEMATOCRIT 24.3 % (35.0-45.0); HEMOGLOBIN 7.5 g/dl (12.0-16.0); LYMPHOCYTES # (AUTO) 1.9 X10'3 (1.1-4.8); LYMPHOCYTES % (AUTO) 9.7 % (21-51); MEAN CORPUSCULAR HEMOGLOBIN 26.8 PG (27.0-31.0); MEAN CORPUSCULAR HGB CONC 30.8 g/dL (33.0-36.5); MEAN CORPUSCULAR VOLUME 87.1 FL (78-98); MEAN PLATELET VOLUME 8.6 FL (7.4-10.4); MONOCYTES # (AUTO) 1.7 X10'3 (0-0.9); MONOCYTES % (AUTO) 8.7 % (2-12); NEUTROPHILS # (AUTO) 15.5 X10'3 (1.8-7.7); NEUTROPHILS % (AUTO) 79.3 % (42-75); PLATELET COUNT 563 X10'3 (140-440); RED BLOOD COUNT 2.79 X10'6 (4.20-5.60); RED CELL DISTRIBUTION WIDTH 18.2 % (11.5-14.5); WHITE BLOOD COUNT 19.6 X10'3 (4.5-11.0)
[2021-05-26 05:52] LABS: ALANINE AMINOTRANSFERASE 52 U/L (12-78); ALBUMIN 1.5 G/DL (3.4-5.0); ALBUMIN/GLOBULIN RATIO 0.3 (1.1-1.5); ALKALINE PHOSPHATASE 83 IU/L (46-116); ANION GAP 11 (8-16); ASPARTATE AMINO TRANSFERASE 45 U/L (10-37); BILIRUBIN,TOTAL 0.3 MG/DL (0.1-1.0); BLOOD UREA NITROGEN 64 MG/DL (7-18); BUN/CREATININE RATIO 27.8 (6.6-38.0); CALCIUM 8.9 MG/DL (8.5-10.1); CHLORIDE 102 MMOL/L (99-107); GLUCOSE 227 MG/DL (70-104); POTASSIUM 4.7 MMOL/L (3.5-5.1); SODIUM 136 MMOL/L (135-145); TOTAL CARBON DIOXIDE 22.6 MMOL/L (24-32); TOTAL PROTEIN 5.9 G/DL (6.4-8.2); eGFR 20 ML/MIN
--- NOTE | 2021-05-26 06:53 | NUR ---
Problems reprioritized. Patient report given, questions answered & plan of care reviewed with RADHA WHITAKER.
[2021-05-26 07:02] LABS: ANISOCYTOSIS 2+; PLATELET ESTIMATE INCREASED; TOTAL CELLS COUNTED 100
[2021-05-26 07:03] LABS: POIKILOCYTOSIS FEW; POLYCHROMASIA 2+
--- NOTE | 2021-05-26 07:24 | NUR ---
Patient in room BLU 352. I have received report from Ira WHITAKER and had the opportunity to ask questions and assume patient care.
[2021-05-26 08:00] VITALS: BP 143/65
[2021-05-26] MEDS: nystatin 15 GM powder TP SCH ×2 (08:00→20:51)
[2021-05-26] MEDS: docusate sod 100mg capsule PO SCH ×2 (08:00→20:50)
[2021-05-26] MEDS: metoprolol succinate 25mg (24-HOUR) SR. Tablet PO SCH (08:00)
[2021-05-26] MEDS: pregabalin 75mg capsule PO SCH ×2 (08:00→20:00)
[2021-05-26] MEDS: HYDROcodone/acetaminophen 10/325mg tab PO PRN ×3 (08:23→21:17)
[2021-05-26] MEDS: multivitamins, therapeutics tablet PO SCH (08:23)
[2021-05-26] MEDS: levoTHYROXINE 25mcg tablet PO SCH (08:24)
[2021-05-26] MEDS: lactobacillus rhamnosus 10,000 MMU CELLS/CAPSULE PO SCH ×2 (08:24→20:50)
[2021-05-26] MEDS: aspirin 81mg, enteric-coated 1 TAB TABLET.DR PO SCH (08:24)
[2021-05-26] MEDS: furosemide 20 MG/2 ML vial IV SCH ×2 (08:25→21:19)
[2021-05-26] MEDS: amLODIPine 5mg tablet PO SCH (08:28)
[2021-05-26] MEDS: NUT.TX.GLUC.INTOLER,LAC-FR,SOY (GLUCERNA) 237 ML PO SCH ×3 (08:31→18:00)
--- NOTE | 2021-05-26 09:00 | NUR ---
Student documentation: I have reviewed and agree with all interventions, assessments performed and documented by Kali [employer] Student.
[2021-05-26] MEDS: insulin Lispro (HumaLOG) vial - multi-dose SQ SCH ×4 (09:01→22:20)
[2021-05-26] MEDS: morphine 4 MG/ML inj SYRINge IV PRN (09:52)
[2021-05-26] MEDS: albuterol 2.5 MG/3 ML nebule NEB PRN ×3 (10:14→22:10)
[2021-05-26 11:00] VITALS: BP 100/57
[2021-05-26] MEDS ORDERED: azithromycin 250mg tablet PO ONE (13:40)
[2021-05-26] MEDS: guaiFENesin/DM 10ml UD oral syrup PO PRN (14:47)
--- NOTE | 2021-05-26 18:48 | NUR ---
Problems reprioritized. Patient report given, questions answered & plan of care reviewed with Alicia WHITAKER.
--- NOTE | 2021-05-26 18:51 | NUR ---
Problems reprioritized. Patient report given, questions answered & plan of care reviewed with Rei WHITAKER Traveler.
[2021-05-26] MEDS: atorvastatin 20mg tablet PO SCH (21:15)
[2021-05-26] MEDS: psyllium seed 3.4 gm packet PO SCH (21:15)
[2021-05-26] MEDS: insulin glargine (Lantus) pen - multi-dose SQ SCH (22:20)
[2021-05-27] MEDS: HYDROcodone/acetaminophen 10/325mg tab PO PRN ×5 (01:23→20:10)
[2021-05-27] MEDS: guaiFENesin/DM 10ml UD oral syrup PO PRN ×2 (01:24→17:24)
[2021-05-27 01:26] VITALS: BP 137/50
[2021-05-27] MEDS: VANCOMYCIN LEVEL IV SCH (03:00)
[2021-05-27] MEDS: albuterol 2.5 MG/3 ML nebule NEB PRN (05:30)
--- NOTE | 2021-05-27 05:59 | NUR ---
PT C/O SOB O2 SAT 95% ON R/A . PT REQUESTED RESP TX. RT NOTIFIED AND TX GIVEN. PT REQUESTED O2 2L FOR COMFORT. PT USING FLUTTER VALVE . CHARGE NURSE ABDULAZIZ NOTIFIED Addendum: 05/27/21 at 0622 by Rei Santos RN PT HAS BEEN AMBUALTING IN HALLWAYS MULTIPLE TIMES
[2021-05-27 07:14] LABS: BASOPHILS # (AUTO) 0.3 X10'3 (0-0.2); BASOPHILS % (AUTO) 1.4 % (0-1); EOSINOPHILS # (AUTO) 0.3 X10'3 (0-0.9); EOSINOPHILS % (AUTO) 1.6 % (0-6); HEMATOCRIT 24.1 % (35.0-45.0); HEMOGLOBIN 7.4 g/dl (12.0-16.0); LYMPHOCYTES # (AUTO) 2.1 X10'3 (1.1-4.8); LYMPHOCYTES % (AUTO) 10.5 % (21-51); MEAN CORPUSCULAR HEMOGLOBIN 27.2 PG (27.0-31.0); MEAN CORPUSCULAR HGB CONC 30.9 g/dL (33.0-36.5); MEAN PLATELET VOLUME 8.8 FL (7.4-10.4); MONOCYTES # (AUTO) 2.1 X10'3 (0-0.9); MONOCYTES % (AUTO) 10.5 % (2-12); PLATELET COUNT 568 X10'3 (140-440); RED BLOOD COUNT 2.74 X10'6 (4.20-5.60); WHITE BLOOD COUNT 19.7 X10'3 (4.5-11.0)
[2021-05-27 07:24] LABS: ALANINE AMINOTRANSFERASE 46 U/L (12-78); ALBUMIN 1.7 G/DL (3.4-5.0); ALBUMIN/GLOBULIN RATIO 0.4 (1.1-1.5); ALKALINE PHOSPHATASE 93 IU/L (46-116); ANION GAP 12 (8-16); ASPARTATE AMINO TRANSFERASE 39 U/L (10-37); BILIRUBIN,TOTAL 0.4 MG/DL (0.1-1.0); BLOOD UREA NITROGEN 68 MG/DL (7-18); BUN/CREATININE RATIO 30.4 (6.6-38.0); CALCIUM 9.2 MG/DL (8.5-10.1); CHLORIDE 104 MMOL/L (99-107); CREATININE 2.24 MG/DL (0.40-0.90); GLUCOSE 289 MG/DL (70-104); POTASSIUM 4.5 MMOL/L (3.5-5.1); SODIUM 137 MMOL/L (135-145); TOTAL CARBON DIOXIDE 21.3 MMOL/L (24-32); TOTAL PROTEIN 6.2 G/DL (6.4-8.2); VANCOMYCIN,RANDOM 15.1 UG/ML; eGFR 21 ML/MIN
--- NOTE | 2021-05-27 07:30 | NUR ---
PAGER ID: [phone] MESSAGE: Good Morning. 352 Kristi is positive MDRO in urine, Already in isolation. On Zithromax 250mg daily currently. Dayana [phone]
[2021-05-27] MEDS: metoprolol succinate 25mg (24-HOUR) SR. Tablet PO SCH (08:00)
[2021-05-27] MEDS: pregabalin 75mg capsule PO SCH ×2 (08:00→20:10)
[2021-05-27] MEDS: NUT.TX.GLUC.INTOLER,LAC-FR,SOY (GLUCERNA) 237 ML PO SCH ×3 (08:00→18:00)
[2021-05-27] MEDS: furosemide 20 MG/2 ML vial IV SCH (08:00)
[2021-05-27] MEDS: multivitamins, therapeutics tablet PO SCH (09:53)
[2021-05-27] MEDS: levoTHYROXINE 25mcg tablet PO SCH (09:53)
[2021-05-27] MEDS: prednisone 10mg tablet PO SCH (09:54)
[2021-05-27] MEDS: aspirin 81mg, enteric-coated 1 TAB TABLET.DR PO SCH (09:54)
[2021-05-27] MEDS: docusate sod 100mg capsule PO SCH ×2 (09:55→20:08)
[2021-05-27] MEDS: nystatin 15 GM powder TP SCH ×2 (09:56→20:19)
[2021-05-27] MEDS: lactobacillus rhamnosus 10,000 MMU CELLS/CAPSULE PO SCH ×2 (10:30→20:08)
[2021-05-27] MEDS: insulin Lispro (HumaLOG) vial - multi-dose SQ SCH ×3 (10:39→22:03)
[2021-05-27] MEDS: amLODIPine 5mg tablet PO SCH (10:40)
[2021-05-27] MEDS: azithromycin 250mg tablet PO SCH (10:41)
--- NOTE | 2021-05-27 10:54 | NUR ---
PAGER ID: [phone] MESSAGE: Marcell Acosta, Her IV is leaking and needs a new one. Patient doesn't want a new IV placed. That being said, she would like PO Lasix instead? Is that OK? Dayana [phone]
[2021-05-27 10:56] LABS: ANISOCYTOSIS 2+; HYPOCHROMASIA 1+; NUCLEATED RED BLOOD CELLS 1 /100WBC (0-0); PLATELET ESTIMATE INCREASED; POLYCHROMASIA 2+; TOTAL CELLS COUNTED 100
[2021-05-27 10:57] LABS: TEAR DROP CELLS FEW
--- NOTE | 2021-05-27 11:49 | NUR ---
PAGER ID: [phone] MESSAGE: 352 Kristi. Can we change Lasix to PO, and no IV for Kira? Dayana [phone]
[2021-05-27 12:00] VITALS: BP 151/56
[2021-05-27] MEDS: insulin glargine (Lantus) pen - multi-dose SQ SCH ×2 (13:11→22:04)
--- NOTE | 2021-05-27 13:12 | NUR ---
Patient Lantus was reported as given by NOC shift Travel Nurse. Unable to verify. Nurse is not returning tonight .
[2021-05-27] MEDS: furosemide 20MG tablet PO SCH ×2 (13:17→20:10)
[2021-05-27 18:00] VITALS: BP 147/58
[2021-05-27] MEDS: atorvastatin 20mg tablet PO SCH (20:09)
[2021-05-27] MEDS: psyllium seed 3.4 gm packet PO SCH (20:11)
[2021-05-27] MEDS: ALPRAZolam 0.25mg tablet PO PRN (21:50)
[2021-05-28] VITALS: BP 158/64
[2021-05-28] MEDS: HYDROcodone/acetaminophen 10/325mg tab PO PRN ×6 (00:20→23:19)
[2021-05-28] MEDS: albuterol 2.5 MG/3 ML nebule NEB PRN (01:36)
[2021-05-28] MEDS: VANCOMYCIN LEVEL IV SCH (03:00)
[2021-05-28] MEDS: guaiFENesin/DM 10ml UD oral syrup PO PRN ×3 (03:02→21:41)
[2021-05-28 06:19] LABS: BASOPHILS # (AUTO) 0.2 X10'3 (0-0.2); EOSINOPHILS # (AUTO) 0.1 X10'3 (0-0.9); EOSINOPHILS % (AUTO) 0.8 % (0-6); HEMOGLOBIN 7.3 g/dl (12.0-16.0); LYMPHOCYTES % (AUTO) 6.9 % (21-51); MEAN CORPUSCULAR HEMOGLOBIN 27.9 PG (27.0-31.0); MEAN CORPUSCULAR HGB CONC 31.9 g/dL (33.0-36.5); MEAN CORPUSCULAR VOLUME 87.5 FL (78-98); MONOCYTES # (AUTO) 1.4 X10'3 (0-0.9); MONOCYTES % (AUTO) 9.5 % (2-12); NEUTROPHILS % (AUTO) 81.8 % (42-75); PLATELET COUNT 527 X10'3 (140-440); RED BLOOD COUNT 2.63 X10'6 (4.20-5.60); RED CELL DISTRIBUTION WIDTH 19.6 % (11.5-14.5); WHITE BLOOD COUNT 14.7 X10'3 (4.5-11.0)
--- NOTE | 2021-05-28 06:49 | NUR ---
Patient in room BLU 352. I have received report from SHERMAN LUZ and had the opportunity to ask questions and assume patient care.
[2021-05-28 07:08] LABS: ALANINE AMINOTRANSFERASE 45 U/L (12-78); ALBUMIN 1.7 G/DL (3.4-5.0); ALBUMIN/GLOBULIN RATIO 0.4 (1.1-1.5); ALKALINE PHOSPHATASE 93 IU/L (46-116); ANION GAP 11 (8-16); ASPARTATE AMINO TRANSFERASE 37 U/L (10-37); BILIRUBIN,TOTAL 0.3 MG/DL (0.1-1.0); BLOOD UREA NITROGEN 65 MG/DL (7-18); BUN/CREATININE RATIO 29.8 (6.6-38.0); CALCIUM 9.2 MG/DL (8.5-10.1); CHLORIDE 104 MMOL/L (99-107); CREATININE 2.18 MG/DL (0.40-0.90); GLUCOSE 364 MG/DL (70-104); POTASSIUM 4.1 MMOL/L (3.5-5.1); SODIUM 137 MMOL/L (135-145); TOTAL CARBON DIOXIDE 22.4 MMOL/L (24-32); VANCOMYCIN,RANDOM 12.2 UG/ML; eGFR 22 ML/MIN
[2021-05-28] MEDS: pregabalin 75mg capsule PO SCH (08:00)
[2021-05-28] MEDS: docusate sod 100mg capsule PO SCH ×2 (08:00→21:37)
[2021-05-28] MEDS: NUT.TX.GLUC.INTOLER,LAC-FR,SOY (GLUCERNA) 237 ML PO SCH ×4 (08:00→19:12)
[2021-05-28] MEDS: metoprolol succinate 25mg (24-HOUR) SR. Tablet PO SCH (08:00)
[2021-05-28] MEDS: furosemide 20MG tablet PO SCH ×2 (09:47→21:37)
[2021-05-28] MEDS: aspirin 81mg, enteric-coated 1 TAB TABLET.DR PO SCH (09:47)
[2021-05-28] MEDS: levoTHYROXINE 25mcg tablet PO SCH (09:48)
[2021-05-28] MEDS: prednisone 10mg tablet PO SCH (09:48)
[2021-05-28] MEDS: multivitamins, therapeutics tablet PO SCH (09:50)
[2021-05-28] MEDS: amLODIPine 5mg tablet PO SCH (09:50)
[2021-05-28] MEDS: azithromycin 250mg tablet PO SCH (09:50)
[2021-05-28] MEDS: lactobacillus rhamnosus 10,000 MMU CELLS/CAPSULE PO SCH ×2 (09:50→21:36)
[2021-05-28] MEDS: nystatin 15 GM powder TP SCH ×2 (09:52→21:38)
[2021-05-28] MEDS: insulin Lispro (HumaLOG) vial - multi-dose SQ SCH ×2 (10:03→23:11)
[2021-05-28] MEDS ORDERED: vancomycin inj 500 MG in normal saline 100ml IV soln 100 ML IV SCH (13:00)
--- NOTE | 2021-05-28 15:07 | NUR ---
UNABLE TO GET IV ACCESS ON PATIENT DR NOTIFIED, AWAITING CALL BACK PAGER ID: [phone] MESSAGE: NIDIA RM 352: PICC ATTEMPTED TWICE TO PUT IN IV AND FAILED,WE TRIED 4 TIMES EARLIER WITH FAIL ALSO, PATIENT REFUSING TO TRY ANOTHER IV ATTEMPT. NO IV ACCESS AT THIS TIME. THANK YOU NIR [id number]
--- NOTE | 2021-05-28 18:13 | NUR ---
Problems reprioritized. Patient report given, questions answered & plan of care reviewed with SHERMAN LUZ.
[2021-05-28 19:25] VITALS: BP 128/68
[2021-05-28] MEDS: atorvastatin 20mg tablet PO SCH (21:37)
[2021-05-28] MEDS: psyllium seed 3.4 gm packet PO SCH (21:37)
[2021-05-28] MEDS: linezolid 600mg tablet PO SCH (21:42)
[2021-05-28] MEDS: insulin glargine (Lantus) pen - multi-dose SQ SCH (23:09)
[2021-05-28] MEDS: ALPRAZolam 0.25mg tablet PO PRN (23:23)
[2021-05-29] VITALS: BP 144/78
[2021-05-29] MEDS: HYDROcodone/acetaminophen 10/325mg tab PO PRN ×5 (03:27→21:19)
--- NOTE | 2021-05-29 06:45 | NUR ---
Patient in room BLU 352. I have received report from SHERMAN LUZ and had the opportunity to ask questions and assume patient care.
[2021-05-29 06:51] LABS: BASOPHILS # (AUTO) 0.2 X10'3 (0-0.2); BASOPHILS % (AUTO) 1.2 % (0-1); EOSINOPHILS # (AUTO) 0.2 X10'3 (0-0.9); EOSINOPHILS % (AUTO) 1.5 % (0-6); HEMATOCRIT 27.8 % (35.0-45.0); HEMOGLOBIN 8.9 g/dl (12.0-16.0); LYMPHOCYTES # (AUTO) 1.9 X10'3 (1.1-4.8); MEAN CORPUSCULAR HEMOGLOBIN 27.7 PG (27.0-31.0); MEAN CORPUSCULAR HGB CONC 31.9 g/dL (33.0-36.5); MEAN PLATELET VOLUME 8.6 FL (7.4-10.4); MONOCYTES # (AUTO) 1.4 X10'3 (0-0.9); MONOCYTES % (AUTO) 8.7 % (2-12); NEUTROPHILS # (AUTO) 12.3 X10'3 (1.8-7.7); NEUTROPHILS % (AUTO) 76.6 % (42-75); PLATELET COUNT 652 X10'3 (140-440); RED BLOOD COUNT 3.19 X10'6 (4.20-5.60); RED CELL DISTRIBUTION WIDTH 19.9 % (11.5-14.5)
[2021-05-29 07:00] VITALS: BP 186/76
[2021-05-29 07:24] LABS: ALANINE AMINOTRANSFERASE 55 U/L (12-78); ALBUMIN 2.1 G/DL (3.4-5.0); ALBUMIN/GLOBULIN RATIO 0.4 (1.1-1.5); ALKALINE PHOSPHATASE 100 IU/L (46-116); ANION GAP 12 (8-16); ASPARTATE AMINO TRANSFERASE 42 U/L (10-37); BILIRUBIN,TOTAL 0.4 MG/DL (0.1-1.0); BLOOD UREA NITROGEN 62 MG/DL (7-18); BUN/CREATININE RATIO 29.5 (6.6-38.0); CALCIUM 9.6 MG/DL (8.5-10.1); CHLORIDE 104 MMOL/L (99-107); GLUCOSE 227 MG/DL (70-104); POTASSIUM 4.1 MMOL/L (3.5-5.1); SODIUM 139 MMOL/L (135-145); TOTAL CARBON DIOXIDE 23.3 MMOL/L (24-32); TOTAL PROTEIN 7.2 G/DL (6.4-8.2); VANCOMYCIN,RANDOM 11.4 UG/ML; eGFR 23 ML/MIN
[2021-05-29] MEDS: linezolid 600mg tablet PO SCH ×2 (08:00→21:18)
[2021-05-29] MEDS: nystatin 15 GM powder TP SCH ×2 (08:00→21:20)
[2021-05-29] MEDS: amLODIPine 5mg tablet PO SCH (09:10)
[2021-05-29] MEDS: multivitamins, therapeutics tablet PO SCH (09:10)
[2021-05-29] MEDS: docusate sod 100mg capsule PO SCH ×2 (09:10→21:19)
[2021-05-29] MEDS: levoTHYROXINE 25mcg tablet PO SCH (09:11)
[2021-05-29] MEDS: azithromycin 250mg tablet PO SCH (09:11)
[2021-05-29] MEDS: prednisone 10mg tablet PO SCH (09:11)
[2021-05-29] MEDS: lactobacillus rhamnosus 10,000 MMU CELLS/CAPSULE PO SCH ×2 (09:11→21:18)
[2021-05-29] MEDS: furosemide 20MG tablet PO SCH ×2 (09:11→21:19)
[2021-05-29] MEDS: aspirin 81mg, enteric-coated 1 TAB TABLET.DR PO SCH (09:12)
[2021-05-29] MEDS: metoprolol succinate 25mg (24-HOUR) SR. Tablet PO SCH (09:12)
[2021-05-29] MEDS: insulin Lispro (HumaLOG) vial - multi-dose SQ SCH ×3 (09:29→21:54)
[2021-05-29 10:31] LABS: ANISOCYTOSIS 2+; PLATELET ESTIMATE INCREASED
[2021-05-29 10:41] LABS: POLYCHROMASIA 1+
[2021-05-29 11:00] VITALS: BP 152/56
[2021-05-29] MEDS ORDERED: furosemide 20 MG/2 ML vial IV ONE (14:25)
--- NOTE | 2021-05-29 14:26 | NUR ---
Reassessment: Pt continues eating well with 75-100% PO intake of meals and 100% PO intake of Glucerna TID meeting estimated nutrient needs. Noted pt started on PO Zyvox, attempted visit at bedside for low tyramine nutrition therapy education however pt unavailable, will attempt at another time. LBM 05/28 per I&O. No nutrition intervention implemented at this time. Will continue to follow. Rec: 1. Continue SB6 carb controlled heart healthy diet with thin liquids per ST recs; cottage cheese with fruit WB per request 2. Chocolate Glucerna TIDWM per MD/pt request 3. MVI for wound healing 4. Routine bowel care 5. Scaled wt this admit; subsequent weekly wts Addendum: 05/29/21 at [address] Amended: Links added.
[2021-05-29] MEDS ORDERED: furosemide 40mg tablet PO ONE (17:45)
[2021-05-29 18:00] VITALS: BP 157/59
[2021-05-29] MEDS: NUT.TX.GLUC.INTOLER,LAC-FR,SOY (GLUCERNA) 237 ML PO SCH (18:00)
--- NOTE | 2021-05-29 19:24 | NUR ---
Problems reprioritized. Patient report given, questions answered & plan of care reviewed with SHERMAN LUZ.
[2021-05-29] MEDS: psyllium seed 3.4 gm packet PO SCH (21:17)
[2021-05-29] MEDS: atorvastatin 20mg tablet PO SCH (21:18)
[2021-05-29 21:43] VITALS: BP 157/84
[2021-05-29] MEDS: insulin glargine (Lantus) pen - multi-dose SQ SCH (21:57)
[2021-05-29] MEDS: ALPRAZolam 0.25mg tablet PO PRN (22:02)
[2021-05-29 23:59] VITALS: BP 122/70
[2021-05-30] MEDS: HYDROcodone/acetaminophen 10/325mg tab PO PRN ×6 (01:15→23:00)
[2021-05-30 06:19] LABS: BASOPHILS # (AUTO) 0.1 X10'3 (0-0.2); BASOPHILS % (AUTO) 0.8 % (0-1); EOSINOPHILS # (AUTO) 0.2 X10'3 (0-0.9); EOSINOPHILS % (AUTO) 1.9 % (0-6); HEMOGLOBIN 8.1 g/dl (12.0-16.0); LYMPHOCYTES # (AUTO) 1.9 X10'3 (1.1-4.8); LYMPHOCYTES % (AUTO) 15.4 % (21-51); MEAN CORPUSCULAR HEMOGLOBIN 28.3 PG (27.0-31.0); MEAN CORPUSCULAR HGB CONC 32.5 g/dL (33.0-36.5); MEAN CORPUSCULAR VOLUME 87.2 FL (78-98); MEAN PLATELET VOLUME 8.3 FL (7.4-10.4); MONOCYTES # (AUTO) 1.4 X10'3 (0-0.9); MONOCYTES % (AUTO) 11.4 % (2-12); NEUTROPHILS # (AUTO) 8.9 X10'3 (1.8-7.7); NEUTROPHILS % (AUTO) 70.5 % (42-75); PLATELET COUNT 539 X10'3 (140-440); RED BLOOD COUNT 2.87 X10'6 (4.20-5.60); RED CELL DISTRIBUTION WIDTH 20.1 % (11.5-14.5); WHITE BLOOD COUNT 12.6 X10'3 (4.5-11.0)
[2021-05-30 06:39] LABS: ALANINE AMINOTRANSFERASE 45 U/L (12-78); ALBUMIN 1.9 G/DL (3.4-5.0); ALBUMIN/GLOBULIN RATIO 0.4 (1.1-1.5); ALKALINE PHOSPHATASE 89 IU/L (46-116); ANION GAP 10 (8-16); ASPARTATE AMINO TRANSFERASE 35 U/L (10-37); BILIRUBIN,TOTAL 0.4 MG/DL (0.1-1.0); BLOOD UREA NITROGEN 65 MG/DL (7-18); BUN/CREATININE RATIO 34.4 (6.6-38.0); CALCIUM 9.4 MG/DL (8.5-10.1); CHLORIDE 104 MMOL/L (99-107); CREATININE 1.89 MG/DL (0.40-0.90); GLUCOSE 217 MG/DL (70-104); POTASSIUM 4.1 MMOL/L (3.5-5.1); SODIUM 140 MMOL/L (135-145); TOTAL PROTEIN 6.6 G/DL (6.4-8.2); eGFR 26 ML/MIN
--- NOTE | 2021-05-30 06:45 | NUR ---
Patient in room BLU 352. I have received report from SHERMAN LUZ and had the opportunity to ask questions and assume patient care.
[2021-05-30 07:00] VITALS: BP 166/83
[2021-05-30] MEDS: NUT.TX.GLUC.INTOLER,LAC-FR,SOY (GLUCERNA) 237 ML PO SCH ×3 (08:00→20:00)
[2021-05-30] MEDS: insulin Lispro (HumaLOG) vial - multi-dose SQ SCH ×3 (09:29→22:50)
[2021-05-30 09:32] LABS: ANISOCYTOSIS 3+; ELLIPTOCYTES FEW; PLATELET ESTIMATE INCREASED
[2021-05-30 09:33] LABS: STOMATOCYTES 1+; TEAR DROP CELLS FEW
[2021-05-30 11:00] VITALS: BP 142/77
[2021-05-30] MEDS: aspirin 81mg, enteric-coated 1 TAB TABLET.DR PO SCH (11:44)
[2021-05-30] MEDS: azithromycin 250mg tablet PO SCH (11:44)
[2021-05-30] MEDS: furosemide 20MG tablet PO SCH ×2 (11:45→22:16)
[2021-05-30] MEDS: linezolid 600mg tablet PO SCH ×2 (11:45→22:16)
[2021-05-30] MEDS: levoTHYROXINE 25mcg tablet PO SCH (11:45)
[2021-05-30] MEDS: prednisone 10mg tablet PO SCH (11:45)
[2021-05-30] MEDS: lactobacillus rhamnosus 10,000 MMU CELLS/CAPSULE PO SCH ×2 (11:45→22:16)
[2021-05-30] MEDS: docusate sod 100mg capsule PO SCH ×2 (11:45→20:00)
[2021-05-30] MEDS: multivitamins, therapeutics tablet PO SCH (11:45)
[2021-05-30] MEDS: metoprolol succinate 25mg (24-HOUR) SR. Tablet PO SCH (11:46)
[2021-05-30] MEDS: amLODIPine 5mg tablet PO SCH (11:46)
[2021-05-30] MEDS: nystatin 15 GM powder TP SCH ×2 (11:48→22:31)
--- NOTE | 2021-05-30 14:38 | NUR ---
Dayanara consult: Provided pt w/ written and verbal low tyramine diet education w/ RD contact info, pt receptive of information. Will continue to monitor. Addendum: 05/30/21 at [address] Amended: Links added.
--- NOTE | 2021-05-30 15:20 | NUR ---
PATIENT REFUSED TO HAVE DRESSING CHANGED, WANTS TO HAVE IT DONE IN AM Addendum: 05/30/21 at 2006 by Bettina Zapata RN Amended: Links added.
--- NOTE | 2021-05-30 19:00 | NUR ---
Problems reprioritized. Patient report given, questions answered & plan of care reviewed with SHERMAN NEGRON.
[2021-05-30 20:00] VITALS: BP 137/66
[2021-05-30] MEDS: atorvastatin 20mg tablet PO SCH (22:17)
[2021-05-30] MEDS: psyllium seed 3.4 gm packet PO SCH (22:17)
[2021-05-30] MEDS: ALPRAZolam 0.25mg tablet PO PRN (22:59)
[2021-05-30] MEDS: insulin glargine (Lantus) pen - multi-dose SQ SCH (23:14)
[2021-05-31] VITALS: BP 120/70
[2021-05-31] MEDS: guaiFENesin/DM 10ml UD oral syrup PO PRN (01:01)
[2021-05-31] MEDS: HYDROcodone/acetaminophen 10/325mg tab PO PRN ×5 (04:01→23:04)
[2021-05-31 06:24] LABS: BASOPHILS % (AUTO) 0.2 % (0-1); EOSINOPHILS # (AUTO) 0.4 X10'3 (0-0.9); EOSINOPHILS % (AUTO) 2.9 % (0-6); HEMATOCRIT 27.8 % (35.0-45.0); HEMOGLOBIN 8.8 g/dl (12.0-16.0); LYMPHOCYTES # (AUTO) 1.9 X10'3 (1.1-4.8); LYMPHOCYTES % (AUTO) 15.7 % (21-51); MEAN CORPUSCULAR HEMOGLOBIN 27.4 PG (27.0-31.0); MEAN CORPUSCULAR HGB CONC 31.7 g/dL (33.0-36.5); MEAN CORPUSCULAR VOLUME 86.5 FL (78-98); MEAN PLATELET VOLUME 8.5 FL (7.4-10.4); MONOCYTES # (AUTO) 1.4 X10'3 (0-0.9); MONOCYTES % (AUTO) 11.6 % (2-12); NEUTROPHILS # (AUTO) 8.5 X10'3 (1.8-7.7); NEUTROPHILS % (AUTO) 69.6 % (42-75); PLATELET COUNT 569 X10'3 (140-440); RED BLOOD COUNT 3.22 X10'6 (4.20-5.60); RED CELL DISTRIBUTION WIDTH 20.1 % (11.5-14.5); WHITE BLOOD COUNT 12.3 X10'3 (4.5-11.0)
[2021-05-31 06:47] LABS: ALANINE AMINOTRANSFERASE 55 U/L (12-78); ALBUMIN 2.2 G/DL (3.4-5.0); ALBUMIN/GLOBULIN RATIO 0.4 (1.1-1.5); ALKALINE PHOSPHATASE 97 IU/L (46-116); ANION GAP 12 (8-16); ASPARTATE AMINO TRANSFERASE 45 U/L (10-37); BILIRUBIN,TOTAL 0.4 MG/DL (0.1-1.0); BLOOD UREA NITROGEN 69 MG/DL (7-18); BUN/CREATININE RATIO 37.5 (6.6-38.0); CALCIUM 9.5 MG/DL (8.5-10.1); CHLORIDE 103 MMOL/L (99-107); CREATININE 1.84 MG/DL (0.40-0.90); GLUCOSE 112 MG/DL (70-104); POTASSIUM 4.3 MMOL/L (3.5-5.1); SODIUM 139 MMOL/L (135-145); TOTAL PROTEIN 7.2 G/DL (6.4-8.2); eGFR 26 ML/MIN
[2021-05-31 08:00] VITALS: BP 158/69
[2021-05-31] MEDS: docusate sod 100mg capsule PO SCH ×2 (08:00→20:00)
[2021-05-31] MEDS: multivitamins, therapeutics tablet PO SCH (08:00)
[2021-05-31] MEDS: lactobacillus rhamnosus 10,000 MMU CELLS/CAPSULE PO SCH ×2 (08:33→22:37)
[2021-05-31] MEDS: aspirin 81mg, enteric-coated 1 TAB TABLET.DR PO SCH (08:34)
[2021-05-31] MEDS: amLODIPine 5mg tablet PO SCH (08:34)
[2021-05-31] MEDS: levoTHYROXINE 25mcg tablet PO SCH (08:35)
[2021-05-31] MEDS: linezolid 600mg tablet PO SCH ×2 (08:35→22:36)
[2021-05-31] MEDS: prednisone 10mg tablet PO SCH (08:36)
[2021-05-31] MEDS: furosemide 20MG tablet PO SCH ×2 (08:36→20:00)
[2021-05-31] MEDS: metoprolol succinate 25mg (24-HOUR) SR. Tablet PO SCH (08:37)
[2021-05-31] MEDS: nystatin 15 GM powder TP SCH ×2 (08:42→22:38)
[2021-05-31] MEDS: NUT.TX.GLUC.INTOLER,LAC-FR,SOY (GLUCERNA) 237 ML PO SCH ×3 (08:42→18:00)
[2021-05-31] MEDS: insulin Lispro (HumaLOG) vial - multi-dose SQ SCH ×3 (09:00→23:40)
[2021-05-31 09:38] LABS: PLATELET ESTIMATE INCREASED
[2021-05-31 09:39] LABS: ANISOCYTOSIS 3+; POIKILOCYTOSIS FEW; POLYCHROMASIA FEW; SCHISTOCYTES FEW; STOMATOCYTES 1+
[2021-05-31 12:00] VITALS: BP 150/57
[2021-05-31] MEDS ORDERED: VANCOMYCIN LEVEL IV ONE (12:30)
--- NOTE | 2021-05-31 18:30 | NUR ---
REPORT GIVEN TO FATMATA WHITAKER. PT EATING DINNER IN CHAIR. NO CHANGES OR CURRENT SIGNS OF DISTRESS.
[2021-05-31 20:00] VITALS: BP 137/73
[2021-05-31] MEDS: psyllium seed 3.4 gm packet PO SCH (21:00)
[2021-05-31] MEDS: atorvastatin 20mg tablet PO SCH (22:36)
[2021-05-31] MEDS: ALPRAZolam 0.25mg tablet PO PRN (22:36)
[2021-05-31] MEDS: insulin glargine (Lantus) pen - multi-dose SQ SCH (23:38)
[2021-06-01] VITALS: BP 134/70
[2021-06-01] MEDS: HYDROcodone/acetaminophen 10/325mg tab PO PRN ×3 (03:05→13:25)
--- NOTE | 2021-06-01 06:09 | NUR ---
late entry 1950 pt assisted back to bed from sitting in chair
[2021-06-01 06:27] LABS: MEAN PLATELET VOLUME 8.2 FL (7.4-10.4)
[2021-06-01 06:31] LABS: BASOPHILS # (AUTO) 0.1 X10'3 (0-0.2); BASOPHILS % (AUTO) 1.2 % (0-1); EOSINOPHILS # (AUTO) 0.3 X10'3 (0-0.9); EOSINOPHILS % (AUTO) 2.9 % (0-6); HEMATOCRIT 27.5 % (35.0-45.0); HEMOGLOBIN 8.7 g/dl (12.0-16.0); LYMPHOCYTES # (AUTO) 1.9 X10'3 (1.1-4.8); LYMPHOCYTES % (AUTO) 15.7 % (21-51); MEAN CORPUSCULAR HEMOGLOBIN 27.9 PG (27.0-31.0); MEAN CORPUSCULAR HGB CONC 31.6 g/dL (33.0-36.5); MONOCYTES # (AUTO) 1.1 X10'3 (0-0.9); MONOCYTES % (AUTO) 9.4 % (2-12); NEUTROPHILS # (AUTO) 8.6 X10'3 (1.8-7.7); NEUTROPHILS % (AUTO) 70.8 % (42-75); PLATELET COUNT 542 X10'3 (140-440); RED BLOOD COUNT 3.12 X10'6 (4.20-5.60); RED CELL DISTRIBUTION WIDTH 20.5 % (11.5-14.5); WHITE BLOOD COUNT 12.1 X10'3 (4.5-11.0)
[2021-06-01 07:04] LABS: ALANINE AMINOTRANSFERASE 53 U/L (12-78); ALBUMIN 2.1 G/DL (3.4-5.0); ALBUMIN/GLOBULIN RATIO 0.5 (1.1-1.5); ALKALINE PHOSPHATASE 94 IU/L (46-116); ANION GAP 12 (8-16); ASPARTATE AMINO TRANSFERASE 40 U/L (10-37); BILIRUBIN,TOTAL 0.4 MG/DL (0.1-1.0); BLOOD UREA NITROGEN 70 MG/DL (7-18); CALCIUM 9.5 MG/DL (8.5-10.1); CHLORIDE 103 MMOL/L (99-107); CREATININE 2.12 MG/DL (0.40-0.90); GLUCOSE 200 MG/DL (70-104); POTASSIUM 4.3 MMOL/L (3.5-5.1); SODIUM 138 MMOL/L (135-145); TOTAL PROTEIN 6.7 G/DL (6.4-8.2); eGFR 22 ML/MIN
[2021-06-01 07:20] VITALS: BP 147/79
[2021-06-01] MEDS: metoprolol succinate 25mg (24-HOUR) SR. Tablet PO SCH (07:54)
[2021-06-01] MEDS: levoTHYROXINE 25mcg tablet PO SCH (07:57)
[2021-06-01] MEDS: linezolid 600mg tablet PO SCH (07:57)
[2021-06-01] MEDS: multivitamins, therapeutics tablet PO SCH (07:57)
[2021-06-01] MEDS: prednisone 10mg tablet PO SCH (07:58)
[2021-06-01] MEDS: furosemide 20MG tablet PO SCH (07:58)
[2021-06-01] MEDS: aspirin 81mg, enteric-coated 1 TAB TABLET.DR PO SCH (07:58)
[2021-06-01] MEDS: amLODIPine 5mg tablet PO SCH (07:59)
[2021-06-01] MEDS: docusate sod 100mg capsule PO SCH (08:00)
[2021-06-01] MEDS: lactobacillus rhamnosus 10,000 MMU CELLS/CAPSULE PO SCH (08:00)
[2021-06-01] MEDS: NUT.TX.GLUC.INTOLER,LAC-FR,SOY (GLUCERNA) 237 ML PO SCH ×2 (08:15→13:04)
[2021-06-01] MEDS: nystatin 15 GM powder TP SCH (08:15)
[2021-06-01] MEDS ORDERED: FURO20TA4 PO ×2 (10:09)
[2021-06-01] MEDS: insulin Lispro (HumaLOG) vial - multi-dose SQ SCH ×2 (10:44→14:13)
[2021-06-01 12:17] VITALS: BP 139/69
--- NOTE | 2021-06-01 13:21 | NUR ---
Patient refused discharge photos
--- NOTE | 2021-06-01 14:33 | NUR ---
PATIENT STABLE AND APPROPRIATE FOR DISCHARGE HOME. ALL DISCHARGE INSTRUCTIONS AND EDUCATION GIVEN AND REVIEWED WITH PATIENT, ALL QUESTIONS ANSWERED. NEW RX E-SCRIPTED TO PREFERRED PHARMACY. ALL BELONGINGS TAKEN FROM ROOM.
== END 2021-06-01 14:28 | disposition home health service (06) | DRG 853 ==
LOC: ER 12:16 → ED HOLD 15:00 → PCU 3S 19:30 → SUR 3N 05-21 11:52
PROVIDERS: ADMIT Internal Medicine; ATTEND Internal Medicine
PROC: 3E0T3BZ Introduction of Anesthetic Agent into Peripheral Nerves and Plexi, Percutaneous Approach (ICD-10-PCS; 2021-05-17)
PROC: XW03396 Introduction of Ceftolozane/Tazobactam Anti-infective into Peripheral Vein, Percutaneous Approach, New Technology Group 6 (ICD-10-PCS; 2021-05-17)
PROC: 0Y6C0Z3 Detachment at Right Upper Leg, Low, Open Approach (ICD-10-PCS; principal; 2021-05-17 15:02)
DX: A41.02 Sepsis due to Methicillin resistant Staphylococcus aureus (principal); N17.0 Acute kidney failure with tubular necrosis; D62 Acute posthemorrhagic anemia; I13.0 Hypertensive heart and chronic kidney disease with heart failure and stage 1 through stage 4 chronic kidney disease, or unspecified chronic kidney disease; M86.8X7 Other osteomyelitis, ankle and foot; Z66 Do not resuscitate; E03.9 Hypothyroidism, unspecified; E10.22 Type 1 diabetes mellitus with diabetic chronic kidney disease; N18.30 Chronic kidney disease, stage 3 unspecified; J20.9 Acute bronchitis, unspecified; E10.51 Type 1 diabetes mellitus with diabetic peripheral angiopathy without gangrene; E10.69 Type 1 diabetes mellitus with other specified complication; E78.5 Hyperlipidemia, unspecified; G89.4 Chronic pain syndrome; Z96.653 Presence of artificial knee joint, bilateral; I08.0 Rheumatic disorders of both mitral and aortic valves; L89.899 Pressure ulcer of other site, unspecified stage; I50.813 Acute on chronic right heart failure; T87.81 Dehiscence of amputation stump; R15.9 Full incontinence of feces; Y83.5 Amputation of limb(s) as the cause of abnormal reaction of the patient, or of later complication, without mention of misadventure at the time of the procedure; Z20.822 Contact with and (suspected) exposure to COVID-19; Y92.89 Other specified places as the place of occurrence of the external cause; Z86.16 Personal history of COVID-19; Z83.3 Family history of diabetes mellitus; Z88.6 Allergy status to analgesic agent; Z88.2 Allergy status to sulfonamides; Z88.8 Allergy status to other drugs, medicaments and biological substances; Z88.1 Allergy status to other antibiotic agents; Z79.899 Other long term (current) drug therapy; Z79.82 Long term (current) use of aspirin
CPT/HCPCS: 36415; 71045; 73630; 80048; 80053; 80202; 81001; 82948; 83605; 83880; 84145; 84443; 85007; 85008; 85025; 85651; 85730; 86885; 86900; 86901; 86920; 87040; 87077; 87088; 87186; 87635; 88307; 92508; 92616; 93005; 93306; 94640; 94760; 96365; 97110; 97162; 97530; 97535; 99285; A6258; A6446; A6449; A7000; C1758; G0378; J1100; J1200; J1815; J1940; J2001; J2250; J2270; J2543; J2795; J3010; J3370; J7040; J7512

== ENCOUNTER 2021-06-16 06:14 | Inpatient (IN) | payer MEDICARE ==
[~2021-06-16] VITALS: Ht 157.5 cm; Wt 79.5 kg
[~2021-06-16 06:14] MED LIST changes: +AMLO10TA13 PO; -AMLO5TAB4 PO; -ASCO100T12 PO; -BUME1TAB8 PO; -CLIN-143 PO; -DULO60CA65 PO; +FURO20TA4 PO; -GLIP5TAB13 PO; +METO-384 PO; -METO-395 PO
[2021-06-16] MEDS ORDERED: acetaminophen 325mg tablet PO ONE (06:25)
[2021-06-16] MEDS ORDERED: normal saline 1000ml 1,000 ML IV ONE (06:25)
[2021-06-16 06:49] LABS: BASOPHILS # (AUTO) 0.1 X10'3 (0-0.2); BASOPHILS % (AUTO) 0.6 % (0-1); EOSINOPHILS # (AUTO) 0.2 X10'3 (0-0.9); EOSINOPHILS % (AUTO) 0.8 % (0-6); HEMATOCRIT 26.8 % (35.0-45.0); HEMOGLOBIN 8.7 g/dl (12.0-16.0); LYMPHOCYTES % (AUTO) 4.2 % (21-51); MEAN CORPUSCULAR HGB CONC 32.4 g/dL (33.0-36.5); MEAN CORPUSCULAR VOLUME 86.5 FL (78-98); MEAN PLATELET VOLUME 8.7 FL (7.4-10.4); MONOCYTES % (AUTO) 4.2 % (2-12); NEUTROPHILS # (AUTO) 20.4 X10'3 (1.8-7.7); NEUTROPHILS % (AUTO) 90.2 % (42-75); PLATELET COUNT 400 X10'3 (140-440); RED CELL DISTRIBUTION WIDTH 19.6 % (11.5-14.5); WHITE BLOOD COUNT 22.6 X10'3 (4.5-11.0)
[2021-06-16 07:01] LABS: ALANINE AMINOTRANSFERASE 22 U/L (12-78); ALBUMIN 2.4 G/DL (3.4-5.0); ALBUMIN/GLOBULIN RATIO 0.5 (1.1-1.5); ALKALINE PHOSPHATASE 109 IU/L (46-116); ANION GAP 13 (8-16); ASPARTATE AMINO TRANSFERASE 22 U/L (10-37); BILIRUBIN,TOTAL 0.3 MG/DL (0.1-1.0); BLOOD UREA NITROGEN 48 MG/DL (7-18); BUN/CREATININE RATIO 21.3 (6.6-38.0); CALCIUM 9.4 MG/DL (8.5-10.1); CHLORIDE 105 MMOL/L (99-107); CREATININE 2.25 MG/DL (0.40-0.90); GLUCOSE 166 MG/DL (70-104); MAGNESIUM 1.8 MG/DL (1.5-2.4); POTASSIUM 4.6 MMOL/L (3.5-5.1); SODIUM 138 MMOL/L (135-145); TOTAL CARBON DIOXIDE 20.4 MMOL/L (24-32); eGFR 21 ML/MIN
[2021-06-16 07:10] LABS: COLOR,URINE YELLOW (Yellow); UA COLLECTION TYPE STRAIGHT CATH
[2021-06-16 07:11] LABS: CLARITY,URINE CLOUDY (Clear); GLUCOSE, URINE NEGATIVE (Neg); KETONES,URINE NEGATIVE (Neg); LEUKOCYTE ESTERASE ,URINE MODERATE (Neg); NITRITES, URINE POSITIVE (Neg); OCCULT BLOOD,URINE SMALL (Neg); PH,URINE 5.5 (4.8-8.0); PROTEIN,URINE 300 mg/dl (Neg); UROBILINOGEN,URINE 0.2 E.U/dL (0.2-1.0)
[2021-06-16] MEDS ORDERED: vancomycin/NS 1 GM ADD-VANTAGE 250 ML IV ONE (07:15)
[2021-06-16] MEDS ORDERED: linezolid 600mg/300ml PREMIX 300 ML IV ONE (07:15)
[2021-06-16 07:18] LABS: BACTERIA,URINE 4+ /HPF (Neg); RBC,URINE 0-2 /HPF (0-2); WBC,URINE TNTC /HPF (0-4)
[2021-06-16 07:19] LABS: MUCUS STRANDS FEW /LPF (Neg); RENAL CELLS, URINE FEW /HPF; SQUAMOUS EPITHELIAL CELL,UR NONE SEEN /LPF (FEW); TRANSITIONAL EPI CELLS,URINE FEW /HPF
[2021-06-16] MEDS ORDERED: normal saline 1000ML IV soln IVB ONE ×2 (07:20)
[2021-06-16 07:28] LABS: PLATELET ESTIMATE NORMAL
[2021-06-16 07:29] LABS: ANISOCYTOSIS 2+; POIKILOCYTOSIS FEW
[2021-06-16] MEDS ORDERED: magnesium hydroxide 30ml (MOM) UD suspension PO PRN (07:40)
[2021-06-16] MEDS ORDERED: magnesium 2GM in 50ml NS 50 ML IV PRN (07:40)
[2021-06-16] MEDS ORDERED: potassium Cl 20 mEq SR tablet PO PRN ×2 (07:40)
[2021-06-16] MEDS ORDERED: magnesium Cl slow-release 64mg tablet PO PRN (07:40)
[2021-06-16] MEDS ORDERED: potassium Cl 40MEQ/1/2NS 520ml 520 ML IV PRN ×2 (07:40)
[2021-06-16] MEDS ORDERED: ondansetron/PF 4mg/2ml inj IV PRN (07:40)
[2021-06-16] MEDS ORDERED: magnesium 4gm in 100ml NS 100 ML IV PRN (07:40)
[2021-06-16] MEDS ORDERED: mag hydrox/Alum hydrox/simeth 30ml oral suspension PO PRN (07:40)
[2021-06-16] MEDS ORDERED: morphine 2 MG/ML inj. syringe IV PRN (07:40)
[2021-06-16] MEDS ORDERED: acetaminophen 325mg tablet PO PRN ×2 (07:40)
[2021-06-16] MEDS ORDERED: glucagon, human recombinant 1mg kit SUBCUT PRN (07:45)
[2021-06-16] MEDS ORDERED: dextrose 50%-water 50ml dispensing syringe IV PRN ×2 (07:45)
[2021-06-16] MEDS ORDERED: MESSAGE TO PHARMACY PO ONE (07:45)
[2021-06-16] MEDS ORDERED: dextrose ORAL solution 15 GM/59 ML bottle PO PRN ×2 (07:45)
[2021-06-16] MEDS: K and/or MAG REPLACEMENT MC SCH ×2 (08:00→20:00)
[2021-06-16] MEDS: ciprofloxacin lact 400MG/200ML 200 ML IV SCH ×2 (08:30→21:45)
[2021-06-16] MEDS: heparin, porcine 5000 units/ml vial SQ SCH ×2 (08:30→21:48)
--- NOTE | 2021-06-16 08:42 | NUR ---
PT RIPPED OFF BP AND REFUSES TO HAVE TAKEN AT THIS TIME. WILL CONTINUE TO MONITOR.
[2021-06-16] MEDS: bisacodyl 5mg tablet.DR PO PRN (09:34)
[2021-06-16] MEDS: normal saline 1000ml 1,000 ML IV SCH ×2 (10:47→21:48)
[2021-06-16] MEDS: HYDROcodone/acetaminophen 5mg/325mg tablet PO PRN ×3 (12:53→21:47)
[2021-06-16] MEDS ORDERED: FURO-150 PO (12:59)
[2021-06-16] MEDS ORDERED: GLIP5TAB13 PO (13:01)
--- NOTE | 2021-06-16 14:06 | NUR ---
Report received from Shar WHITAKER, he is aware Ampicillin is scheduled for 1400. There is no need for Soap suds enema since patient had a stool after dulcolax was given. COVID neg. test. Will assume patient care when patient arrives to unit.
--- NOTE | 2021-06-16 14:43 | NUR ---
PAGER ID: [phone] MESSAGE: 351 Marcell Berry. she has yeast all over her aurora area, breasts etc. She also takes [place] 10 at home. Can I get orders for [place] 10 and nystatin please. Dayana [phone]
--- NOTE | 2021-06-16 15:03 | NUR ---
ampicillin not administered in ER, let pharmacy know that patient is now on surgical in room 351 and needs 1400 dose.
[2021-06-16] MEDS: ampicillin inj 2 GM in normal saline 100ml IV soln 100 ML IV SCH ×2 (16:57→21:45)
[2021-06-16 19:00] VITALS: BP 161/52
[2021-06-16] MEDS: lactobacillus rhamnosus 10,000 MMU CELLS/CAPSULE PO SCH ×2 (20:00→21:47)
[2021-06-16] MEDS: insulin glargine (Lantus) pen - multi-dose SQ SCH (21:00)
[2021-06-16] MEDS: atorvastatin 20mg tablet PO SCH (21:46)
[2021-06-16] MEDS: ipratropium/albuterol 3ml nebule NEB SCH (23:02)
[2021-06-17] VITALS: BP 132/37
[2021-06-17] MEDS: ampicillin inj 2 GM in normal saline 100ml IV soln 100 ML IV SCH ×4 (01:46→19:04)
[2021-06-17] MEDS: normal saline 1000ml 1,000 ML IV SCH ×3 (03:40→23:57)
[2021-06-17] MEDS: ipratropium/albuterol 3ml nebule NEB SCH ×2 (04:31→07:00)
--- NOTE | 2021-06-17 06:06 | NUR ---
Problems reprioritized. Patient report given, questions answered & plan of care reviewed with SHERMAN Vegas.
[2021-06-17 06:34] LABS: BASOPHILS # (AUTO) 0.1 X10'3 (0-0.2); BASOPHILS % (AUTO) 0.6 % (0-1); EOSINOPHILS % (AUTO) 0.1 % (0-6); LYMPHOCYTES % (AUTO) 4.8 % (21-51); MEAN CORPUSCULAR HEMOGLOBIN 27.6 PG (27.0-31.0); MEAN CORPUSCULAR HGB CONC 30.8 g/dL (33.0-36.5); MEAN CORPUSCULAR VOLUME 89.6 FL (78-98); MEAN PLATELET VOLUME 9.2 FL (7.4-10.4); MONOCYTES # (AUTO) 1.3 X10'3 (0-0.9); MONOCYTES % (AUTO) 6.3 % (2-12); NEUTROPHILS # (AUTO) 17.5 X10'3 (1.8-7.7); NEUTROPHILS % (AUTO) 88.2 % (42-75); PLATELET COUNT 342 X10'3 (140-440); RED CELL DISTRIBUTION WIDTH 20.6 % (11.5-14.5); WHITE BLOOD COUNT 19.9 X10'3 (4.5-11.0)
[2021-06-17 07:00] VITALS: BP 109/53
[2021-06-17] MEDS: HYDROcodone/acetaminophen 5mg/325mg tablet PO PRN (07:12)
[2021-06-17] MEDS: multivitamins, therapeutics tablet PO SCH (07:13)
[2021-06-17] MEDS: heparin, porcine 5000 units/ml vial SQ SCH ×2 (07:14→19:06)
[2021-06-17] MEDS: metoprolol succinate 25mg (24-HOUR) SR. Tablet PO SCH (07:14)
[2021-06-17] MEDS: levoTHYROXINE 25mcg tablet PO SCH (07:14)
[2021-06-17] MEDS: lactobacillus rhamnosus 10,000 MMU CELLS/CAPSULE PO SCH ×2 (07:14→18:59)
[2021-06-17] MEDS: furosemide 20MG tablet PO SCH (07:14)
[2021-06-17] MEDS: aspirin 81mg, enteric-coated 1 TAB TABLET.DR PO SCH (07:14)
[2021-06-17] MEDS: amLODIPine 5mg tablet PO SCH (07:16)
[2021-06-17 07:26] LABS: ALANINE AMINOTRANSFERASE 15 U/L (12-78); ALBUMIN 2.2 G/DL (3.4-5.0); ALBUMIN/GLOBULIN RATIO 0.5 (1.1-1.5); ALKALINE PHOSPHATASE 90 IU/L (46-116); ANION GAP 15 (8-16); ASPARTATE AMINO TRANSFERASE 22 U/L (10-37); BILIRUBIN,TOTAL 0.4 MG/DL (0.1-1.0); BLOOD UREA NITROGEN 38 MG/DL (7-18); BUN/CREATININE RATIO 19.1 (6.6-38.0); CALCIUM 9.2 MG/DL (8.5-10.1); CHLORIDE 110 MMOL/L (99-107); CREATININE 1.99 MG/DL (0.40-0.90); GLUCOSE 113 MG/DL (70-104); MAGNESIUM 1.8 MG/DL (1.5-2.4); POTASSIUM 4.6 MMOL/L (3.5-5.1); SODIUM 142 MMOL/L (135-145); TOTAL CARBON DIOXIDE 17.5 MMOL/L (24-32); TOTAL PROTEIN 6.7 G/DL (6.4-8.2); eGFR 24 ML/MIN
[2021-06-17 07:48] LABS: ANISOCYTOSIS 3+; ELLIPTOCYTES FEW; HYPOCHROMASIA 1+; PLATELET ESTIMATE NORMAL; POLYCHROMASIA FEW; SCHISTOCYTES FEW; TEAR DROP CELLS 1+
[2021-06-17] MEDS: K and/or MAG REPLACEMENT MC SCH ×2 (08:00→19:05)
[2021-06-17] MEDS: ciprofloxacin lact 400MG/200ML 200 ML IV SCH ×2 (09:28→19:04)
[2021-06-17 11:00] VITALS: BP 154/41
--- NOTE | 2021-06-17 11:29 | NUR ---
Initial: Pt admitted w/ concern for previous R AKMaya stump, found to have urosepsis secondary to UTI per EMR. Pt currently on CCHO diet w/ 0% intake of first meal. On previous admission last month, pt noted to have difficulty cutting foods and was on SB6 diet, d/w dietary to send chopped foods w/ meals. Noted pt on zyvox though was seen on previous admission 05/30 for written and verbal low tyramine diet education w/ RD contact info. [facility] 06/16 w/ PRN bowel care. Will continue to monitor PO trends and make recommendations as appropriate. Recs: 1. Continue CCHO diet as tolerated; chop foods given pt weakness 2. Monitor need for ONS pending PO trends 3. Bowel care per rx 4. Scaled wt this admit, weekl wts thereafter Addendum: 06/17/21 at [address] Amended: Links added.
[2021-06-17] MEDS: HYDROcodone/acetaminophen 10/325mg tab PO PRN ×2 (11:30→18:59)
[2021-06-17] MEDS: ALPRAZolam 0.25mg tablet PO PRN (11:30)
[2021-06-17] MEDS: insulin Lispro (HumaLOG) vial - multi-dose SQ SCH ×2 (14:21→21:31)
--- NOTE | 2021-06-17 18:41 | NUR ---
Problems reprioritized. Patient report given, questions answered & plan of care reviewed with SHERMAN Ambrocio.
[2021-06-17 20:00] VITALS: BP 139/46
[2021-06-17] MEDS: atorvastatin 20mg tablet PO SCH (21:22)
[2021-06-17] MEDS: temazepam 15mg capsule PO PRN (21:22)
[2021-06-17] MEDS: insulin glargine (Lantus) pen - multi-dose SQ SCH (21:33)
[2021-06-17] MEDS: ipratropium/albuterol 3ml nebule NEB PRN (23:14)
[2021-06-18] VITALS: BP 147/54
[2021-06-18] MEDS: methylPREDNISolone sod succ/PF 40mg inj. IV SCH ×3 (00:59→21:11)
[2021-06-18] MEDS: ampicillin inj 2 GM in normal saline 100ml IV soln 100 ML IV SCH ×2 (02:13→08:32)
[2021-06-18] MEDS: ipratropium/albuterol 3ml nebule NEB PRN (03:14)
[2021-06-18] MEDS: HYDROcodone/acetaminophen 10/325mg tab PO PRN ×3 (03:30→17:16)
[2021-06-18] MEDS: ALPRAZolam 0.25mg tablet PO PRN ×2 (03:41→21:13)
[2021-06-18 06:16] LABS: BASOPHILS # (AUTO) 0.1 X10'3 (0-0.2); BASOPHILS % (AUTO) 0.5 % (0-1); EOSINOPHILS % (AUTO) 0 % (0-6); HEMATOCRIT 23.4 % (35.0-45.0); HEMOGLOBIN 7.4 g/dl (12.0-16.0); LYMPHOCYTES # (AUTO) 0.4 X10'3 (1.1-4.8); LYMPHOCYTES % (AUTO) 2.2 % (21-51); MEAN CORPUSCULAR HEMOGLOBIN 28.1 PG (27.0-31.0); MEAN CORPUSCULAR HGB CONC 31.7 g/dL (33.0-36.5); MEAN CORPUSCULAR VOLUME 88.4 FL (78-98); MEAN PLATELET VOLUME 8.7 FL (7.4-10.4); MONOCYTES # (AUTO) 0.6 X10'3 (0-0.9); NEUTROPHILS # (AUTO) 17.9 X10'3 (1.8-7.7); NEUTROPHILS % (AUTO) 94.3 % (42-75); PLATELET COUNT 354 X10'3 (140-440); RED BLOOD COUNT 2.64 X10'6 (4.20-5.60); RED CELL DISTRIBUTION WIDTH 20.3 % (11.5-14.5)
--- NOTE | 2021-06-18 06:34 | NUR ---
Problems reprioritized. Patient report given, questions answered & plan of care reviewed with SHERMAN Shaikh. .
--- NOTE | 2021-06-18 06:34 | NUR ---
Patient in room BLU 351. I have received report from SHERMAN Ambrocio and had the opportunity to ask questions and assume patient care.
[2021-06-18 06:49] LABS: ALANINE AMINOTRANSFERASE 23 U/L (12-78); ALBUMIN 2.1 G/DL (3.4-5.0); ALBUMIN/GLOBULIN RATIO 0.5 (1.1-1.5); ALKALINE PHOSPHATASE 99 IU/L (46-116); ANION GAP 18 (8-16); ASPARTATE AMINO TRANSFERASE 23 U/L (10-37); BILIRUBIN,TOTAL 0.4 MG/DL (0.1-1.0); BLOOD UREA NITROGEN 41 MG/DL (7-18); BUN/CREATININE RATIO 17.3 (6.6-38.0); CALCIUM 8.9 MG/DL (8.5-10.1); CHLORIDE 105 MMOL/L (99-107); CREATININE 2.37 MG/DL (0.40-0.90); GLUCOSE 263 MG/DL (70-104); MAGNESIUM 1.6 MG/DL (1.5-2.4); SODIUM 138 MMOL/L (135-145); TOTAL CARBON DIOXIDE 15.2 MMOL/L (24-32); TOTAL PROTEIN 6.7 G/DL (6.4-8.2); eGFR 20 ML/MIN
--- NOTE | 2021-06-18 07:10 | NUR ---
Patient in room BLU 351. I have received report from SHERMAN Shaikh and had the opportunity to ask questions and assume patient care.
[2021-06-18 07:30] VITALS: BP 93/63
[2021-06-18] MEDS: aspirin 81mg, enteric-coated 1 TAB TABLET.DR PO SCH (07:57)
[2021-06-18] MEDS: furosemide 20MG tablet PO SCH (07:58)
[2021-06-18] MEDS: amLODIPine 5mg tablet PO SCH (07:59)
[2021-06-18] MEDS: levoTHYROXINE 25mcg tablet PO SCH (07:59)
[2021-06-18] MEDS: multivitamins, therapeutics tablet PO SCH (08:00)
[2021-06-18] MEDS: lactobacillus rhamnosus 10,000 MMU CELLS/CAPSULE PO SCH ×2 (08:00→21:10)
[2021-06-18] MEDS ORDERED: methylPREDNISolone sod succ/PF 40mg inj. IV SCH (08:00)
[2021-06-18] MEDS: K and/or MAG REPLACEMENT MC SCH ×2 (08:00→20:00)
[2021-06-18] MEDS: metoprolol succinate 25mg (24-HOUR) SR. Tablet PO SCH (08:00)
[2021-06-18] MEDS: heparin, porcine 5000 units/ml vial SQ SCH ×2 (08:01→21:10)
[2021-06-18] MEDS: normal saline 1000ml 1,000 ML IV SCH ×2 (08:47→21:09)
[2021-06-18] MEDS: insulin Lispro (HumaLOG) vial - multi-dose SQ SCH ×4 (09:38→21:34)
--- NOTE | 2021-06-18 09:47 | NUR ---
Patient reports that she has an appointment today with Dr. Conner to remove eusebio to right stump. Per patient's request Dr. Conner was called and appointment was cancelled. Dr. Conner ok to remove eusebio to right stump.
[2021-06-18] MEDS: ciprofloxacin lact 400MG/200ML 200 ML IV SCH (10:01)
--- NOTE | 2021-06-18 10:59 | NUR ---
as clinical instructor i reviewed student nurse charting
[2021-06-18 11:22] VITALS: BP 100/58
[2021-06-18 11:27] VITALS: BP 88/66
--- NOTE | 2021-06-18 12:44 | NUR ---
Patient in room BLU 351. I have received report from SHERMAN Zimmer and had the opportunity to ask questions and assume patient care.
[2021-06-18] MEDS: amox tr/potassium clavulanate 875/125mg TAB PO SCH ×2 (12:54→21:13)
[2021-06-18 16:20] VITALS: BP 144/76
--- NOTE | 2021-06-18 16:47 | NUR ---
as clinical instructor, i reviewed student documentation
--- NOTE | 2021-06-18 17:52 | NUR ---
Problems reprioritized. Patient report given, questions answered & plan of care reviewed with SHERMAN Shaikh.
--- NOTE | 2021-06-18 18:48 | NUR ---
Student documentation: I have reviewed and agree with all interventions, assessments performed and documented by SN ISABELLA. Student Medication Administration: For this medication-pass time frame, all medication were reviewed, dispensed, administered and documented per hospital policy by SN ISABELLA.
--- NOTE | 2021-06-18 18:48 | NUR ---
Problems reprioritized. Patient report given, questions answered & plan of care reviewed with SHERMAN CHAVEZ.
--- NOTE | 2021-06-18 18:49 | NUR ---
PATIENT TOLERATED WELL REMOVAL OF ALL CHUCKY TO RIGHT STUMP 43 CHUCKY REMOVED. MIN BLEEDING COVERED WITH STERI STRIP AND BORDER GAUZE.
[2021-06-18 20:00] VITALS: BP 142/47
[2021-06-18] MEDS: atorvastatin 20mg tablet PO SCH (21:10)
[2021-06-18] MEDS: insulin glargine (Lantus) pen - multi-dose SQ SCH (21:33)
[2021-06-18] MEDS: nystatin 15 GM powder TP SCH (21:35)
[2021-06-18] MEDS: temazepam 15mg capsule PO PRN (22:29)
[2021-06-19 01:00] VITALS: BP 155/59
[2021-06-19] MEDS: HYDROcodone/acetaminophen 10/325mg tab PO PRN ×5 (01:11→22:45)
[2021-06-19 06:02] LABS: BASOPHILS % (AUTO) 0.2 % (0-1); EOSINOPHILS % (AUTO) 0 % (0-6); HEMATOCRIT 25.4 % (35.0-45.0); HEMOGLOBIN 7.9 g/dl (12.0-16.0); LYMPHOCYTES # (AUTO) 0.8 X10'3 (1.1-4.8); LYMPHOCYTES % (AUTO) 6.3 % (21-51); MEAN CORPUSCULAR HEMOGLOBIN 27.6 PG (27.0-31.0); MEAN CORPUSCULAR HGB CONC 31.2 g/dL (33.0-36.5); MEAN CORPUSCULAR VOLUME 88.5 FL (78-98); MEAN PLATELET VOLUME 8.5 FL (7.4-10.4); MONOCYTES # (AUTO) 0.6 X10'3 (0-0.9); MONOCYTES % (AUTO) 5.2 % (2-12); NEUTROPHILS # (AUTO) 10.9 X10'3 (1.8-7.7); NEUTROPHILS % (AUTO) 88.3 % (42-75); PLATELET COUNT 337 X10'3 (140-440); RED BLOOD COUNT 2.87 X10'6 (4.20-5.60); WHITE BLOOD COUNT 12.4 X10'3 (4.5-11.0)
--- NOTE | 2021-06-19 06:16 | NUR ---
Problems reprioritized. Patient report given, questions answered & plan of care reviewed with SHERMAN Shaikh.
[2021-06-19 06:19] LABS: ALANINE AMINOTRANSFERASE 79 U/L (12-78); ALBUMIN 1.8 G/DL (3.4-5.0); ALBUMIN/GLOBULIN RATIO 0.4 (1.1-1.5); ALKALINE PHOSPHATASE 131 IU/L (46-116); ANION GAP 15 (8-16); ASPARTATE AMINO TRANSFERASE 144 U/L (10-37); BILIRUBIN,TOTAL 0.2 MG/DL (0.1-1.0); BLOOD UREA NITROGEN 59 MG/DL (7-18); BUN/CREATININE RATIO 18.4 (6.6-38.0); CALCIUM 8.6 MG/DL (8.5-10.1); CHLORIDE 105 MMOL/L (99-107); GLUCOSE 233 MG/DL (70-104); MAGNESIUM 1.9 MG/DL (1.5-2.4); POTASSIUM 5.4 MMOL/L (3.5-5.1); SODIUM 135 MMOL/L (135-145); TOTAL CARBON DIOXIDE 15.4 MMOL/L (24-32); TOTAL PROTEIN 6.3 G/DL (6.4-8.2); eGFR 14 ML/MIN
--- NOTE | 2021-06-19 06:36 | NUR ---
Patient in room BLU 351. I have received report from SHERMAN CHAVEZ and had the opportunity to ask questions and assume patient care.
[2021-06-19 07:00] VITALS: BP 140/49
[2021-06-19] MEDS: amLODIPine 5mg tablet PO SCH (08:00)
[2021-06-19] MEDS: multivitamins, therapeutics tablet PO SCH (08:00)
[2021-06-19] MEDS: K and/or MAG REPLACEMENT MC SCH ×2 (08:00→20:00)
[2021-06-19] MEDS: levoTHYROXINE 25mcg tablet PO SCH (08:32)
[2021-06-19] MEDS: furosemide 20MG tablet PO SCH (08:32)
[2021-06-19] MEDS: metoprolol succinate 25mg (24-HOUR) SR. Tablet PO SCH (08:33)
[2021-06-19] MEDS: methylPREDNISolone sod succ/PF 40mg inj. IV SCH (08:33)
[2021-06-19] MEDS: amox tr/potassium clavulanate 875/125mg TAB PO SCH ×2 (08:33→17:01)
[2021-06-19] MEDS: lactobacillus rhamnosus 10,000 MMU CELLS/CAPSULE PO SCH ×2 (08:33→19:24)
[2021-06-19] MEDS: aspirin 81mg, enteric-coated 1 TAB TABLET.DR PO SCH (08:33)
[2021-06-19] MEDS: nystatin 15 GM powder TP SCH ×3 (08:33→20:03)
[2021-06-19] MEDS: bisacodyl 5mg tablet.DR PO PRN (08:35)
[2021-06-19] MEDS: heparin, porcine 5000 units/ml vial SQ SCH ×2 (08:35→19:55)
[2021-06-19] MEDS: normal saline 1000ml 1,000 ML IV SCH ×2 (08:36→17:09)
[2021-06-19] MEDS: insulin Lispro (HumaLOG) vial - multi-dose SQ SCH ×4 (08:52→21:05)
--- NOTE | 2021-06-19 09:16 | NUR ---
DR. MOYA IN TO SEE PATIENT.
[2021-06-19 11:00] VITALS: BP 133/58
[2021-06-19 20:00] VITALS: BP 147/54
[2021-06-19] MEDS: atorvastatin 20mg tablet PO SCH (20:57)
[2021-06-19] MEDS: ALPRAZolam 0.25mg tablet PO PRN (21:07)
[2021-06-19] MEDS: insulin glargine (Lantus) pen - multi-dose SQ SCH (21:16)
[2021-06-19] MEDS: temazepam 15mg capsule PO PRN (22:45)
--- NOTE | 2021-06-19 23:24 | NUR ---
Student documentation: I have reviewed interventions, assessments performed and documented by Kit CATHERINE [facility] .
[2021-06-20] VITALS: BP 154/52
--- NOTE | 2021-06-20 06:23 | NUR ---
Problems reprioritized. Patient report given, questions answered & plan of care reviewed with SHERMAN Arthur.
--- NOTE | 2021-06-20 06:42 | NUR ---
Patient in room BLU 351. I have received report from SCOTT WHITAKER and had the opportunity to ask questions and assume patient care.
[2021-06-20 07:00] VITALS: BP 145/55
[2021-06-20] MEDS: multivitamins, therapeutics tablet PO SCH ×2 (08:00→08:29)
[2021-06-20] MEDS: nystatin 15 GM powder TP SCH ×3 (08:00→21:43)
[2021-06-20] MEDS: K and/or MAG REPLACEMENT MC SCH ×2 (08:00→20:00)
[2021-06-20 08:17] LABS: BASOPHILS % (AUTO) 0.2 % (0-1); EOSINOPHILS % (AUTO) 0 % (0-6); HEMATOCRIT 27.3 % (35.0-45.0); HEMOGLOBIN 8.5 g/dl (12.0-16.0); LYMPHOCYTES # (AUTO) 1.2 X10'3 (1.1-4.8); LYMPHOCYTES % (AUTO) 6.2 % (21-51); MEAN CORPUSCULAR HEMOGLOBIN 27.5 PG (27.0-31.0); MEAN CORPUSCULAR VOLUME 88.7 FL (78-98); MEAN PLATELET VOLUME 8.4 FL (7.4-10.4); MONOCYTES # (AUTO) 1.3 X10'3 (0-0.9); MONOCYTES % (AUTO) 6.7 % (2-12); NEUTROPHILS % (AUTO) 86.9 % (42-75); PLATELET COUNT 440 X10'3 (140-440); RED BLOOD COUNT 3.08 X10'6 (4.20-5.60); WHITE BLOOD COUNT 19.6 X10'3 (4.5-11.0)
[2021-06-20] MEDS: normal saline 1000ml 1,000 ML IV SCH ×3 (08:28→17:50)
[2021-06-20] MEDS: levoTHYROXINE 25mcg tablet PO SCH (08:29)
[2021-06-20] MEDS: furosemide 20MG tablet PO SCH (08:29)
[2021-06-20] MEDS: amLODIPine 5mg tablet PO SCH (08:29)
[2021-06-20] MEDS: aspirin 81mg, enteric-coated 1 TAB TABLET.DR PO SCH (08:29)
[2021-06-20] MEDS: metoprolol succinate 25mg (24-HOUR) SR. Tablet PO SCH (08:29)
[2021-06-20] MEDS: lactobacillus rhamnosus 10,000 MMU CELLS/CAPSULE PO SCH ×2 (08:29→20:06)
[2021-06-20] MEDS: amox tr/potassium clavulanate 875/125mg TAB PO SCH ×2 (08:30→17:22)
[2021-06-20] MEDS: heparin, porcine 5000 units/ml vial SQ SCH ×2 (08:30→20:05)
[2021-06-20 08:35] LABS: ALANINE AMINOTRANSFERASE 150 U/L (12-78); ALBUMIN 2.2 G/DL (3.4-5.0); ALBUMIN/GLOBULIN RATIO 0.5 (1.1-1.5); ALKALINE PHOSPHATASE 139 IU/L (46-116); ANION GAP 17 (8-16); ASPARTATE AMINO TRANSFERASE 191 U/L (10-37); BILIRUBIN,TOTAL 0.2 MG/DL (0.1-1.0); BLOOD UREA NITROGEN 70 MG/DL (7-18); BUN/CREATININE RATIO 20.2 (6.6-38.0); CALCIUM 8.5 MG/DL (8.5-10.1); CHLORIDE 105 MMOL/L (99-107); CREATININE 3.46 MG/DL (0.40-0.90); GLUCOSE 123 MG/DL (70-104); MAGNESIUM 1.9 MG/DL (1.5-2.4); POTASSIUM 5.3 MMOL/L (3.5-5.1); SODIUM 135 MMOL/L (135-145); TOTAL PROTEIN 6.7 G/DL (6.4-8.2); eGFR 13 ML/MIN
[2021-06-20] MEDS: HYDROcodone/acetaminophen 10/325mg tab PO PRN ×2 (08:35→17:52)
[2021-06-20 08:43] LABS: TOTAL CARBON DIOXIDE 12.9 MMOL/L (24-32)
--- NOTE | 2021-06-20 08:54 | NUR ---
PAGER ID: [phone] MESSAGE: 351 ERYN, PT HAD A CRITICAL CARBON DIOXIDE OF 12.9. EVERT [id number]
--- NOTE | 2021-06-20 09:19 | NUR ---
ALL OUTCOMES PARTIALLY MET Addendum: 06/20/21 at 0919 by Jerson Avilez RN Amended: Links added.
[2021-06-20] MEDS: insulin Lispro (HumaLOG) vial - multi-dose SQ SCH ×3 (10:06→20:05)
[2021-06-20 10:52] LABS: ANISOCYTOSIS 2+; PLATELET ESTIMATE NORMAL; TOTAL CELLS COUNTED 100
[2021-06-20 10:53] LABS: BURR CELLS 1+; LARGE PLATELETS FEW; POLYCHROMASIA 1+
[2021-06-20 10:54] LABS: ELLIPTOCYTES FEW
[2021-06-20 11:00] VITALS: BP 151/53
--- NOTE | 2021-06-20 11:48 | NUR ---
Reassessment: Pt currently on CCHO diet w/ avg intake 51% x 7 meals though up to 75-100% today. LBM 06/19 w/ PRN bowel care given. No nutrition intervention implemented at this time. Noted A1C 9.4 on 05/01/21. Pt received written and verbal DM education w/ RD contact info last month 05/11, no further education given at this time. Will continue to monitor Recs: 1. Continue CCHO diet as tolerated; chop foods given pt weakness 2. Monitor need for additional protein 3. Bowel care per rx 4. Scaled wt this admit, weekl wts thereafter Addendum: 06/20/21 at [address] Amended: Links added.
--- NOTE | 2021-06-20 14:27 | NUR ---
Page Sent PAGER ID: [phone] MESSAGE: 351 NIDIA, PT HAS HAD LOWER BLOOD SUGARS TODAY. I WOULD GIVE HER 18 UNITS OF INSULIN. I AM WORRIED THIS WILL DROP HER BLOOD SUGARS. IS IT OK TO HOLD INSULIN THIS TIME OR WOULD YOU LIKE ME TO JUST REPLACE FOR THE CORRECTIONAL? EVERT [phone]
--- NOTE | 2021-06-20 15:19 | NUR ---
CALLED DR. MOYA SHE STATED IT WAS OK TO JUST GIVE PT CORRECTIONAL DOSE FOR INSULIN DUE TO LOWER THEN USUAL BLOOD SUGARS TODAY AND HISTORY OF HYPOGLYCEMIA.
[2021-06-20] MEDS: ALPRAZolam 0.25mg tablet PO PRN (17:30)
--- NOTE | 2021-06-20 18:19 | NUR ---
Problems reprioritized. Patient report given, questions answered & plan of care reviewed with Lolly pate.
[2021-06-20 20:00] VITALS: BP 166/57
[2021-06-20] MEDS: insulin glargine (Lantus) pen - multi-dose SQ SCH (21:40)
[2021-06-20] MEDS: temazepam 15mg capsule PO PRN (21:42)
[2021-06-21] VITALS: BP 140/50
[2021-06-21] MEDS ORDERED: LIDOcaine 2% 10ml TOPICAL JELLY (Urojet) MM ONE
[2021-06-21 01:33] LABS: TOTAL PROTEIN,URINE RANDOM 176.2 MG/DL
[2021-06-21 02:06] LABS: CLARITY,URINE CLOUDY (Clear); COLOR,URINE YELLOW (Yellow); GLUCOSE, URINE NEGATIVE (Neg); KETONES,URINE NEGATIVE (Neg); PROTEIN,URINE 100 mg/dl (Neg); UA COLLECTION TYPE STRAIGHT CATH
[2021-06-21 02:07] LABS: LEUKOCYTE ESTERASE ,URINE MODERATE (Neg); NITRITES, URINE NEGATIVE (Neg); OCCULT BLOOD,URINE TRACE-INTACT (Neg); UROBILINOGEN,URINE 0.2 E.U/dL (0.2-1.0)
[2021-06-21 02:10] LABS: WBC,URINE TNTC /HPF (0-4)
[2021-06-21 02:11] LABS: CELLULAR CAST 0-4 /LPF (NEGATIVE); SQUAMOUS EPITHELIAL CELL,UR FEW /LPF (FEW); WBC CLUMPS,URINE FEW /HPF (NEGATIVE)
[2021-06-21 02:12] LABS: BACTERIA,URINE 2+ /HPF (Neg)
[2021-06-21] MEDS: normal saline 1000ml 1,000 ML IV SCH (02:24)
[2021-06-21] MEDS: HYDROcodone/acetaminophen 10/325mg tab PO PRN ×3 (02:57→21:42)
[2021-06-21] MEDS: ipratropium/albuterol 3ml nebule NEB PRN (03:00)
[2021-06-21 04:05] LABS: UA EOSINOPHILS NO EOS /HPF
[2021-06-21 06:10] LABS: BASOPHILS % (AUTO) 0.2 % (0-1); EOSINOPHILS # (AUTO) 0.1 X10'3 (0-0.9); EOSINOPHILS % (AUTO) 0.5 % (0-6); HEMATOCRIT 28.2 % (35.0-45.0); HEMOGLOBIN 8.5 g/dl (12.0-16.0); LYMPHOCYTES # (AUTO) 1.4 X10'3 (1.1-4.8); LYMPHOCYTES % (AUTO) 7.6 % (21-51); MEAN CORPUSCULAR HEMOGLOBIN 27.8 PG (27.0-31.0); MEAN CORPUSCULAR VOLUME 92.8 FL (78-98); MONOCYTES # (AUTO) 1.2 X10'3 (0-0.9); MONOCYTES % (AUTO) 6.3 % (2-12); NEUTROPHILS # (AUTO) 15.9 X10'3 (1.8-7.7); NEUTROPHILS % (AUTO) 85.4 % (42-75); PLATELET COUNT 414 X10'3 (140-440); RED BLOOD COUNT 3.04 X10'6 (4.20-5.60); RED CELL DISTRIBUTION WIDTH 20.9 % (11.5-14.5); WHITE BLOOD COUNT 18.7 X10'3 (4.5-11.0)
--- NOTE | 2021-06-21 06:26 | NUR ---
Problems reprioritized. Patient report given, questions answered & plan of care reviewed with SHERMAN Mederos.
[2021-06-21 06:35] LABS: ANION GAP 20 (8-16); BLOOD UREA NITROGEN 77 MG/DL (7-18); BUN/CREATININE RATIO 23.9 (6.6-38.0); CHLORIDE 108 MMOL/L (99-107); CREATININE 3.22 MG/DL (0.40-0.90); GLUCOSE 56 MG/DL (70-104); POTASSIUM 4.3 MMOL/L (3.5-5.1); SODIUM 137 MMOL/L (135-145)
[2021-06-21 06:36] LABS: ALANINE AMINOTRANSFERASE 139 U/L (12-78); ALBUMIN 2.2 G/DL (3.4-5.0); ALBUMIN/GLOBULIN RATIO 0.5 (1.1-1.5); ALKALINE PHOSPHATASE 139 IU/L (46-116); ASPARTATE AMINO TRANSFERASE 118 U/L (10-37); BILIRUBIN,TOTAL 0.2 MG/DL (0.1-1.0); CALCIUM 7.9 MG/DL (8.5-10.1); MAGNESIUM 1.7 MG/DL (1.5-2.4); TOTAL PROTEIN 6.3 G/DL (6.4-8.2); eGFR 14 ML/MIN
[2021-06-21 06:45] LABS: TOTAL CARBON DIOXIDE 9.2 MMOL/L (24-32)
--- NOTE | 2021-06-21 06:45 | NUR ---
at 0630 patient said she tested her own blood sugar and she was at 78. gave her two juice boxes and rechecked 15 minutes later. Patient is up to 86 now and feeling better. will continue to monitor.
[2021-06-21 07:00] VITALS: BP 174/62
--- NOTE | 2021-06-21 07:07 | NUR ---
PAGER ID: [phone] MESSAGE: 351 Marcell Berry: critical CO2 of 9.2, note yesterday suggested starting bicarb but it was never done. any new orders? thanks, joann [phone]
[2021-06-21] MEDS: levoTHYROXINE 25mcg tablet PO SCH (07:31)
[2021-06-21] MEDS: aspirin 81mg, enteric-coated 1 TAB TABLET.DR PO SCH (07:31)
[2021-06-21] MEDS: ALPRAZolam 0.25mg tablet PO PRN (07:31)
[2021-06-21] MEDS: heparin, porcine 5000 units/ml vial SQ SCH ×2 (07:31→20:00)
[2021-06-21] MEDS: lactobacillus rhamnosus 10,000 MMU CELLS/CAPSULE PO SCH ×2 (07:31→20:00)
[2021-06-21] MEDS ORDERED: LIDOcaine 2% 10ml TOPICAL JELLY (Urojet) TP ONE (07:45)
[2021-06-21] MEDS: amLODIPine 5mg tablet PO SCH (07:46)
[2021-06-21] MEDS: metoprolol succinate 25mg (24-HOUR) SR. Tablet PO SCH (07:46)
[2021-06-21] MEDS: multivitamins, therapeutics tablet PO SCH (08:00)
[2021-06-21] MEDS: K and/or MAG REPLACEMENT MC SCH ×2 (08:00→20:00)
[2021-06-21] MEDS: nystatin 15 GM powder TP SCH ×2 (08:10→13:33)
[2021-06-21] MEDS: amox tr/potassium clavulanate 875/125mg TAB PO SCH ×2 (10:13→17:20)
[2021-06-21 10:15] LABS: ANISOCYTOSIS 3+; BURR CELLS FEW; PLATELET ESTIMATE NORMAL
[2021-06-21 10:16] LABS: TEAR DROP CELLS FEW
[2021-06-21] MEDS: sodium bicarbonate (8.4%) inj. 150 MEQ in dextrose 5%-water 1,000 ML IV SCH (11:12)
[2021-06-21 13:00] VITALS: BP 167/54
--- NOTE | 2021-06-21 18:23 | NUR ---
PAGER ID: [phone] MESSAGE: 351 Marcell Berry: patient with daughter and at bedside and is wanting to go on comfort care dejan. thank you! [phone]
--- NOTE | 2021-06-21 18:27 | NUR ---
Problems reprioritized. Patient report given, questions answered & plan of care reviewed with SHERMAN Ambrocio.
[2021-06-21] MEDS ORDERED: morphine 2 MG/ML inj. syringe IV PRN (18:35)
[2021-06-21] MEDS ORDERED: LORazepam 2 mg/ml vial IV PRN (18:35)
[2021-06-21] MEDS ORDERED: LORazepam 1 MG tablet PO PRN (18:35)
[2021-06-21] MEDS: NYSTATIN CREAM - 30GM TUBE TP SCH (20:00)
[2021-06-21] MEDS: insulin glargine (Lantus) pen - multi-dose SQ SCH (21:00)
[2021-06-21] MEDS: temazepam 15mg capsule PO PRN (21:42)
[2021-06-21] MEDS ORDERED: morphine 10mg/0.5ml (conc. morphine) oral syringe PO PRN (22:45)
[2021-06-21] MEDS: morphine 10mg/0.5ml (conc. morphine) oral syringe PO PRN (23:41)
[2021-06-22] VITALS: BP 151/59
[2021-06-22] MEDS: sodium bicarbonate (8.4%) inj. 150 MEQ in dextrose 5%-water 1,000 ML IV SCH (00:42)
[2021-06-22] MEDS: morphine 2 MG/ML inj. syringe IV PRN ×6 (00:42→18:49)
[2021-06-22] MEDS: LORazepam 2 mg/ml vial IV PRN ×3 (01:34→21:01)
--- NOTE | 2021-06-22 06:50 | NUR ---
Patient in room BLU 351. I have received report from SHERMAN Ambrocio and had the opportunity to ask questions and assume patient care.
--- NOTE | 2021-06-22 06:52 | NUR ---
Problems reprioritized. Patient report given, questions answered & plan of care reviewed with SHERMAN Burrell.
[2021-06-22 07:00] VITALS: BP 169/65
[2021-06-22] MEDS: NYSTATIN CREAM - 30GM TUBE TP SCH ×2 (08:00→20:15)
[2021-06-22] MEDS: metoprolol succinate 25mg (24-HOUR) SR. Tablet PO SCH (08:00)
[2021-06-22] MEDS: amLODIPine 5mg tablet PO SCH (08:00)
[2021-06-22] MEDS: levoTHYROXINE 25mcg tablet PO SCH (08:00)
[2021-06-22] MEDS: aspirin 81mg, enteric-coated 1 TAB TABLET.DR PO SCH (08:00)
[2021-06-22] MEDS: heparin, porcine 5000 units/ml vial SQ SCH (08:00)
[2021-06-22] MEDS: lactobacillus rhamnosus 10,000 MMU CELLS/CAPSULE PO SCH (08:00)
[2021-06-22] MEDS: multivitamins, therapeutics tablet PO SCH (08:00)
[2021-06-22] MEDS: morphine 10mg/0.5ml (conc. morphine) oral syringe PO PRN ×4 (08:21→21:02)
[2021-06-22] MEDS: amox tr/potassium clavulanate 875/125mg TAB PO SCH (08:30)
[2021-06-22] MEDS ORDERED: acetaminophen 650mg rectal suppository RC PRN (15:40)
--- NOTE | 2021-06-22 18:00 | NUR ---
Patient in room BLU 351. I have received report from SHERMAN Burrell and had the opportunity to ask questions and assume patient care.
--- NOTE | 2021-06-22 18:47 | NUR ---
Problems reprioritized. Patient report given, questions answered & plan of care reviewed with SHERMAN Paez and dinesh Holder RN.
--- NOTE | 2021-06-22 19:37 | NUR ---
I have received report from SHERMAN Burrell and had the opportunity to ask questions and assume patient care.
[2021-06-23] VITALS: BP 141/68
[2021-06-23] MEDS: LORazepam 2 mg/ml vial IV PRN ×3 (00:12→10:56)
[2021-06-23] MEDS: morphine 2 MG/ML inj. syringe IV PRN ×5 (00:12→12:17)
--- NOTE | 2021-06-23 06:30 | NUR ---
Patient in room BLU 351. I have received report from SHERMAN Holder & SHERMAN Paez and had the opportunity to ask questions and assume patient care.
--- NOTE | 2021-06-23 06:42 | NUR ---
I agree with assesment, documentation, and report given to SHERMAN Tran from SHERMAN Holder
--- NOTE | 2021-06-23 06:44 | NUR ---
Problems reprioritized. Patient report given, questions answered & plan of care reviewed with SHERMAN Tran.
[2021-06-23] MEDS: NYSTATIN CREAM - 30GM TUBE TP SCH (07:27)
--- NOTE | 2021-06-23 07:58 | NUR ---
Family refused VS check 2/2 causes discomfort
[2021-06-23] MEDS ORDERED: morphine 10mg/0.5ml (conc. morphine) oral syringe PO PRN (12:30)
[2021-06-23] MEDS ORDERED: morphine 2 MG/ML inj. syringe IV PRN (12:30)
[2021-06-23] MEDS ORDERED: LORazepam 2 mg/ml vial IV PRN (12:30)
[2021-06-23] MEDS: morphine 10mg/0.5ml (conc. morphine) oral syringe PO PRN ×5 (14:21→17:28)
--- NOTE | 2021-06-23 18:40 | NUR ---
Problems reprioritized. Patient report given, questions answered & plan of care reviewed with Juanita Grant RN.
--- NOTE | 2021-06-23 18:54 | NUR ---
JUST AFTER SHIFT REPORT WITH RODOLFO WHITAKER FAMILY REPORTED THAT PATIENT IS GONE. PATIENT NOT BREATHING, NO PULSE, EKG STRIP RUN DONE WITH STRAIGHT LINE. PATIENT HAS BEEN ON COMFORT CARE SINCE YESTERDAY MORNING AND FAMILY WERE AT THE BEDSIDE WITH THE PATIENT.
--- NOTE | 2021-06-23 19:15 | NUR ---
PATIENT WAS PRONOUNCED AT 1900 AFTER EKG STRIP RUN WITH STRAIGHT LINE. DR. CAO WAS CALLED TO INFORM OF PATIENT'S , CHARGE NURSE CALLED RUG LAYER IAZ WHITAKER AND WAS INFORMED OF . PATIENT'S FAMILY WERE AT THE PATIENT'S BEDSIDE AT THE TIME OF , VANESSA, DAUGHTER ADELSO AND GRANDDAUGHTER HAYDEE.
--- NOTE | 2021-06-23 19:50 | NUR ---
CALLED [employer] TO REPORT WITH REFERENCE NO. [id number] GIVEN BY MIKI.
--- NOTE | 2021-06-23 20:58 | NUR ---
TRIED TO CALL [facility]OS[facility] BUT AN ANSWERING MACHINE LEFT A MESSAGE TO CALL BACK MED SURG FLOOR.
--- NOTE | 2021-06-23 21:30 | NUR ---
CALLED [facility] AGAIN BUT STILL ANSWERING MACHINE.
--- NOTE | 2021-06-23 22:10 | NUR ---
TRIED TO CALL AGAIN [facility] ON 3 LOCATIONS [place], [place] AND [place] WITH ALL ANSWERING MACHINES. CALLED ADELSO, DAUGHTER AND WAS INFORMED THAT UNTIL NOW [facility] HAS NOT CALLED BACK AND DECIDED TO CALL [facility] INSTEAD.
--- NOTE | 2021-06-23 22:20 | NUR ---
CALLED [facility] DANIELS AND WAS INFORMED OF A BODY FOR ELECTRIC MULE DRIVER.
--- NOTE | 2021-06-23 23:30 | NUR ---
[facility] STAFF WAS HERE TO SENIOR ANALYSIS SPECIALIST BODY. PAPERS SIGNED AND COPY GIVEN.
== END 2021-06-23 23:30 | DRG 871 ==
LOC: ER 06:14 → ED HOLD 07:41 → EDBEDREQ 13:42 → SUR 3N 14:11
PROVIDERS: ADMIT Internal Medicine; ATTEND Internal Medicine
DX: A41.9 Sepsis, unspecified organism (principal); N17.0 Acute kidney failure with tubular necrosis; N39.0 Urinary tract infection, site not specified; N18.4 Chronic kidney disease, stage 4 (severe); E11.22 Type 2 diabetes mellitus with diabetic chronic kidney disease; Z66 Do not resuscitate; K59.09 Other constipation; G89.29 Other chronic pain; E03.9 Hypothyroidism, unspecified; Z20.822 Contact with and (suspected) exposure to COVID-19; I35.0 Nonrheumatic aortic (valve) stenosis; E78.5 Hyperlipidemia, unspecified; M25.50 Pain in unspecified joint; R19.7 Diarrhea, unspecified; F41.8 Other specified anxiety disorders; B96.1 Klebsiella pneumoniae [K. pneumoniae] as the cause of diseases classified elsewhere; M54.9 Dorsalgia, unspecified; I12.9 Hypertensive chronic kidney disease with stage 1 through stage 4 chronic kidney disease, or unspecified chronic kidney disease; D64.9 Anemia, unspecified; Z89.611 Acquired absence of right leg above knee; Z51.5 Encounter for palliative care; Z88.1 Allergy status to other antibiotic agents; Z88.8 Allergy status to other drugs, medicaments and biological substances; Z79.899 Other long term (current) drug therapy; Z79.82 Long term (current) use of aspirin; Z79.4 Long term (current) use of insulin
CPT/HCPCS: 36415; 71045; 76770; 80053; 81001; 82570; 82948; 83605; 83735; 84145; 84156; 84300; 85007; 85008; 85025; 85651; 86140; 87040; 87077; 87088; 87186; 87207; 87635; 93005; 94640; 94760; 97110; 97161; 97530; 99285; C9803; G0378; J0290; J0744; J1644; J1815; J2020; J2060; J2270; J2405; J2920; J3370; J7030